=== PATIENT | female | born 1940 | race Caucasian/White ===

== ENCOUNTER 2025-02-21 13:38 | Outpatient (CLI) | payer MEDICARE, SELFPAY ==
--- NOTE | ~2025-02-21 | CT_ITS ---
Procedure: CT shoulder RT wo con Ordering provider: Ottoniel De Santiago MD History: . Preoperative Planning . Comparison: None. Technique: Thin slice axial CT of the No IV contrast was given. Sagittal and coronal reformatted imag es were also obtained and reviewed. Radiation reduction technique utilized. The dose-length product w as 1062.02 mGy-cm. Findings: BONES: No fracture or dislocation seen. Bone formation is seen inferior medial and posterior to the h umeral head. 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 SOFT TISSUES: Normal. IMPRESSION: No fracture or dislocation. Bone formation is seen around the humeral head medially, posteriorly and inferiorly. 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 Reviewed, dictated and finalized at location A. IMPRESSION: No fracture or dislocation. Bone formation is seen around the humeral head medially, posteriorly and inferi heavenly. 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
--- OUTSIDE RECORDS SUMMARY | 2025-02-21 13:48 | XMS_ITS | Clinical Summary ---
Author Organization [facility] [employer] [facility] [facility] Address [address] [place] [address] Care Team Providers Care Paint Spraying Machine Operator Helper Name Role Phone Unavailable Primary Care Provider Unavailabl e Source Comments [facility] [employer] [facility],non-owned Affiliates and Associated Physician Practices is amultiple site organization consisting of ambulatory clinics and hospital sitesin [place], [place], [place] and [place]. This disclosure is being madepursuant to the Care Everywhere program and may not contain all information available regarding this patient. Last updated 18.[employer] [facility] Allergies Active Allergy Reactions Criticality Noted Date Comments Food Rash Low 09/18/2015 Boysenberries--caused metal taste in mouth and lightheadedness Sulfa Drugs Nausea and/or Vomiting 09/18/2015 Medications * Be aware that medications may not be up to date on this document. Alwaysverify current medications with the patient. amoxicillin (AMOXIL) 875 MG tablet Take 875 mg by mouth every 12 hours Active metoprolol tartrate (LOPRESSOR) 100 MG tablet Take 100 mg by mouth once daily Active lisinopril-hydr ochlorothiazide (PRINZIDE; ZESTORETIC) 20-25 MG tablet Take 1 Tab by mouth once daily Active fenofibrate (LOFIBRA) 160 MG tablet Take 160 mg by mouth once daily Take with largest meal of the day. Active omeprazole (PRILOSEC) 20 MG capsule Take 20 mg by mouth daily before breakfast Active aspirin (ASPIRIN) 81 MG tablet Take 81 mg by mouth once daily Active loratadine (CLARITIN) 10 MG tablet Take 10 mg by mouth once daily as needed for Runny Nose or Allergies Active LORazepam (ATIVAN) 0.5 MG tablet Take 1 mg by mouth every 8 hours as needed for Anxiety (claustrophobi a) Active Social History Tobacco Use Types Packs/Day Years Used Date Smoking Tobacco: Never Tobacco Cessation:Counseling Given: No Alcohol Use Standard Drinks/Week Comments Yes 0 (1 standard drink = 0.6 oz pur e alcohol) rare Comments No Sex and Gender Information Value Date Recorded Sex Assigned at Not on file Legal Sex Female 10:30 AM RIP SAWYER Gender Identity Not on file Sexual Orientation Not on file Last Filed Vital Signs Vital Sign Reading Time Taken Comments Blood Pressure 150/86 09/19/2015 2:52 PM RIP SAWYER Pulse 66 09/19/2015 2:52 PM RIP SAWYER Temperature 37 C (98.6 F) 09/19/2015 2:22 PM RIP SAWYER Respiratory Rate 18 09/19/2015 2:52 PM RIP SAWYER Oxygen Saturation 100% 09/19/2015 2:53 PM RIP SAWYER Inhaled Oxygen Concentration - - Weight 90.7 kg (200 lb) 09/19/2015 6:09 AM RIP SAWYER Height 160 cm (5' 3 ) 09/18/2015 3:29 PM RIP SAWYER Body Mass Index 35.43 09/18/2015 3:29 PM RIP SAWYER Plan of Treatment Health Maintenance Due Date Last Done Comments BONE DENSITY TESTING 1942 MEDICARE AWV 12 MONTHS 1942 DTAP/TDAP/TD VACCINES (1 - Tdap) 1961 PNEUMOCOCCAL VACCINE 50+ (1 of 1 - PCV) 1992 ZOSTER VACCINE (1 of 2) 1992 Respiratory Syncytial Virus (RSV) Vaccine Pt: or over 60 yrs (1 - 1-dose 75+ series) 2017 COVID-19 VACCINE ( - 2023-2 5 season) 2024 DEPRESSION SCREENING 10/06/2024 INFLUENZA VACCINE (Season Ended) 2025 HEPATITIS B VACCINE Aged Out No longe r eligible based on patient's age to complete this topic HIB VACCINE Aged Out No longer eligi ble based on patient's age to complete this topic HPV VACCINE Aged Out No longer eligi ble based on patient's age to complete this topic MENINGOCOCCAL (Group B) VACC INE SHARED DECISION-MAKING Aged Out No longer eligibl e based on patient's age to complete this topic MENINGOCOCCAL GROUPS A/C/Y/W VACCINE Aged Out No longer eligible b ased on patient's age to complete this topic Medical Devices Implanted Type Area Char Puller Device Identifier Shelf Expiration Date Model / Serial / Lot Plate Vdr2 Proxm W L Narr Implanted:Qty: 1 on 09/19/2015 by Elias Evans MD at [facility] Right: Radius Acumed 70-0359 / / Peg Smooth Kenan 2.3 X 20mm Implanted:Qty: 1 on 09/19/2015 by Elias Evans MD at [facility] Right: Radius Acumed CO-S2320 / / Scrw Kenan Thrd 2.3 X 18mm Implanted:Qty: 1 on 09/19/2015 by Elias Evans MD at [facility] Right: Radius Acumed CO-T2318 / / Scrw Bone Dannie Ti Full Thrd 2.3mm X 20mm Implanted:Qty: 4 on 09/19/2015 by Elias Evans MD at [facility] Right: Radius Acumed CO-T2320 / / Scrw Non Kenan Hex 3.5mm X 12 Implanted:Qty: 2 on 09/19/2015 by Elias Evans MD at [facility] Right: Radius Acumed 30-0257 / / Scrw Non-Kenan Hexalobe 3.5mm X 10mm Implanted:Qty: 1 on 09/19/2015 by Elias Evans MD at [facility] Right: Radius Acumed [id number] / / Explanted Type Area Char Puller Device Identifier Shelf Expiration Date Model / Serial / Lot Drill Bit Explanted:Qty: 1 on 09/19/2015 at [facility] Right: Radius Acumed [id number] / / Gwire .054 X 6in Explanted:Qty: 2 on 09/19/2015 at [facility] Right: Radius Acumed [id number] / / Drill Bit Explanted:Qty: 1 on 09/19/2015 at [facility] Right: Galindo Billy [id number] / / Insurance MEDICARE [facility] MEDICARE [facility]
--- OUTSIDE RECORDS SUMMARY | 2025-02-21 13:48 | XMS_ITS | Encounter Summary ---
Author Organization [facility] Address [address] [place] [address] Phone Care Team Providers Care Head Transfer Clerk Name Role Phone Hernandez Marrero Primary Care Provider Sandra Pressley APRN, ORACLE DBA Primary Care P rovider Felix Kaiser MD Unavailable [phone] Kan Billings MD Unavailable Reason for Visit * Reason Comments Medication Refill Encounter Details Date Type Department Care Team (Late st Contact Info) Description 02/03/2024 Refill [facility] - Primary Care - [place] [address] [place] [address] Val Mustafa MD [address] [place] [address] Medication Refill Social History Tobacco Use Types Packs/Day Years Used Date Smoking Tobacco: Never Smokeless Tobacco: Never Alcohol Use Standard Drinks/Week Comments Not Currently 0 (1 standard drink = 0.6 oz pur e alcohol) occassionally glass of wine PHQ-2 Answer Date Recorded Total Score - Questions 1-9 0 11/06 Education Answer Date Recorded What is the highest level of school you have completed or the highest degree you have received? Some college, no degree 11/18/2020 Comments No Sex and Gender Information Value Date Recorded Sex Assigned at Not on file Legal Sex Female 8:49 PM CDT Gender Identity Female 08/28/2023 1:03 PM MECHANICAL RELIABILITY ENGINEER Sexual Orientation Straight 08/28/2023 1: 03 PM MECHANICAL RELIABILITY ENGINEER documented as of this encounter Miscellaneous Notes * Telephone Encounter - Elena Putnam RN - 02/04/2024 9:05 AM CDT Medication(s) refilled and signed per [facility] Chronic Medication Refill Standing Order for Pediatricand Adult Patients. Requested Prescriptions Pending Prescriptions Disp Refills metoprolol Succinate (TOPROL-XL) 100 MG TABLET SR 24 HR [Pharmacy Med Name: METOPROLOL ER [id number] TABS] 90 Tablet 1 Sig: TAKE 1 TABLET BY MOUTH DAILY Beta-Blockers Protocol Passed - 02/03/2024 9:28 PM Passed - BP on record in the past year Clinician-entered: BP Readings from Last 3 Encounters: 11/17/23 124/84 09/08/23 122/74 01/24/23 142/84 Patient-entered: No data recorded Passed - Visit with relevant provider in past 12 months or upcoming 90 days Recent Visits Date Type Provider Dept 11/17/23 Office Visit Hernandez Marrero PAC [facility] 09/08/23 Office Visit Val Mustafa MD [facility] Showing recent visits within past 365 days and meeting all other requirements Future Appointments No visits were found meeting these conditions. Showing future appointments within next 90 days and meeting all other requirements documented in this encounter Plan of Treatment Not on file documented as of this encounter Visit Diagnoses Diagnosis Essential hypertension Unspecified essential hypertension documented in this encounter Additional Health Concerns Assessment Noted Time PHQ-9 Depression Total Score: 0 11/17/19 10:49 AM MECHANICAL RELIABILITY ENGINEER documented as of this encounter Care Teams Head Transfer Clerk Relationship Specialty Start Date End Date Hernandez Marrero, PAC [address] [place] [id number] PCP - General Physician Surgery Tech 12/10/23 11/29/24 Sandra Pressley BREAKER UP, ORACLE DBA [address] [place] [address] PCP - General Advanced Practice Nurse 11/30/24 Felix Kaiser MD [address] [place] [address] Consulting Physician Nephrology 12/21/24 Kan Billings MD 2 [facility] [address] [place] [address] Consulting Physician Cardiovascular Disease - Cardiology 12/21/24 documented as of this encounter
--- OUTSIDE RECORDS SUMMARY | 2025-02-21 13:48 | XMS_ITS | Encounter Summary ---
Author Organization [facility] Address [address] [place] [address] Phone Care Team Providers Care Retread Mold Operator Name Role Phone Sandra Salas MD Primary Care Provider + [phone] Val Mustafa MD Primary Care Provider + [phone] Hernandez Marrero PAC Primary Care Provider + [phone] Sandra Pressley APRN, NEGATIVE RESTORER Primary Care P rovider Felix Kaiser MD Unavailable [phone] Kan Billings MD Unavailable [phone] Reason for Visit * Reason Comments Medication Refill Encounter Details Date Type Department Care Team (Late st Contact Info) Description 01/01/2022 Refill [facility] - Primary Care - [place] [address] [place] [address] Sandra Salas MD [address] [place] [address] Medication Refill Social History Tobacco Use Types Packs/Day Years Used Date Smoking Tobacco: Never Smokeless Tobacco: Never Alcohol Use Standard Drinks/Week Comments Yes 0 (1 standard drink = 0.6 oz pur e alcohol) occassionally glass of wine PHQ-2 Answer Date Recorded PHQ-2 Score 0 11/02/2019 Education Answer Date Recorded What is the highest level of school you have completed or the highest degree you have received? Some college, no degree 11/18/2020 Comments No Sex and Gender Information Value Date Recorded Sex Assigned at Not on file Legal Sex Female 8:49 PM CDT Gender Identity Female 08/28/2023 1:03 PM DISTRIBUTION ENGINEER Sexual Orientation Straight 08/28/2023 1: 03 PM DISTRIBUTION ENGINEER documented as of this encounter Miscellaneous Notes * Telephone Encounter - Noemí Roper RN - 01/01/2022 11:11 AM CDT Medication failed the protocol, provider to review and approve the medication order if appropriate. Requested Prescriptions Pending Prescriptions Disp Refills LORazepam (ATIVAN) 0.5 MG Tablet [Pharmacy Med Name: LORAZEPAM 0.5MG TABLETS] 30 Tablet Sig: TAKE 1 TABLET BY MOUTH EVERY NIGHT NEEDED FOR SLEEP Not Delegated - Benzodiazepines Protocol Failed - 01/01/2022 11:03 AM Failed - This refill cannot be delegated Passed - Visit with relevant provider in past 12 months or upcoming 90 days Recent Visits Date Type Provider Dept 09/12/21 Office Visit Sandra Pressley APRN, VINICIO [facility] 06/04/21 Office Visit Sandra Salas MD [facility] Showing recent visits within past 365 days and meeting all other requirements Future Appointments Date Type Provider Dept 01/09/22 Appointment David, [facility] [facility] 01/17/22 Appointment Sandra Salas MD [facility] [facility] Showing future appointments within next 90 days and meeting all other requirements documented in this encounter Plan of Treatment Not on file documented as of this encounter Visit Diagnoses Diagnosis Anxiety Anxiety state, unspecified documented in this encounter Additional Health Concerns Infection Onset Date Last Indicated Resolved Time COVID - 19 11/17/2023 11/17/2023 11/17/2023 11:3 3 AM DISTRIBUTION ENGINEER COVID - 19 11/17/2023 11/17/2023 11/17/2023 11:3 8 AM DISTRIBUTION ENGINEER COVID - 19 11/17/2023 11/17/2023 11/17/2023 11:5 1 AM DISTRIBUTION ENGINEER COVID - 19 Confirmed 11/17/2023 11/17/2023 024 12:16 AM DISTRIBUTION ENGINEER Assessment Noted Time PHQ-9 Depression Total Score: 0 11/02/19 20 1:00 PM DISTRIBUTION ENGINEER documented as of this encounter Care Teams Retread Mold Operator Relationship Specialty Start Date End Date Sandra Salas MD PCP - General Family Medicine 09/16/15 01/19/23 Val Mustafa MD [address] [place] [address] PCP - General Family Medicine 01/24/23 12/09/23 Hernandez Marrero, PAC [address] [place] [address] PCP - General Physician Rehabilitation Program Manager 12/10/23 11/29/24 Sandra Pressley, DOLPHIN RESEARCHER, NEGATIVE RESTORER [address] [place] [address] PCP - General Advanced Practice Nurse 11/30/24 Felix Kaiser MD [address] [place] [address] Consulting Physician Nephrology 12/21/24 ManuelitoKan martino MD 2 [facility] [address] [place] [address] Consulting Physician Cardiovascular Disease - Cardiology 12/21/24 documented as of this encounter
--- OUTSIDE RECORDS SUMMARY | 2025-02-21 13:48 | XMS_ITS | Encounter Summary ---
Author Organization [facility] Address [address] [place] [address] Phone Care Team Providers Care Surfacer Name Role Phone Sandra Salas MD Primary Care Provider + [phone] Val Mustafa MD Primary Care Provider + [phone] Hernandez Marrero PAC Primary Care Provider + [phone] Sandra Pressley APRN, WIND OPERATIONS SUPERVISOR Primary Care P rovider Felix Kaiser MD Unavailable [phone] Kan Billings MD Unavailable [phone] Reason for Visit * Reason Comments Medication Refill Encounter Details Date Type Department Care Team (Late st Contact Info) Description 05/13/2021 Refill [facility] - Primary Care - [place] [address] [place] [address] Sandra Salas MD [address] [place] [address] Medication Refill Social History Tobacco [...] CDT Gender Identity Female 08/28/2023 1:03 PM PLANT MAINTENANCE WORKER Sexual Orientation Straight 08/28/2023 1: 03 PM PLANT MAINTENANCE WORKER documented as of this encounter Plan of Treatment Not on file documented as of this encounter Visit Diagnoses Diagnosis Essential hypertension Unspecified essential hypertension documented in this encounter Additional Health Concerns Infection Onset Date Last Indicated Resolved Time COVID - 19 11/17/2023 11/17/2023 11/17/2023 11:3 3 AM PLANT MAINTENANCE WORKER COVID - 19 11/17/2023 11/17/2023 11/17/2023 11:3 8 AM PLANT MAINTENANCE WORKER COVID - 19 11/17/2023 11/17/2023 11/17/2023 11:5 1 AM PLANT MAINTENANCE WORKER COVID - 19 Confirmed 11/17/2023 11/17/2023 03 024 12:16 AM PLANT MAINTENANCE WORKER Assessment Noted Time PHQ-9 Depression Total Score: 0 11/02/19 20 1:00 PM PLANT MAINTENANCE WORKER documented as of this encounter Care Teams Surfacer Relationship Specialty Start Date End Date Sandra Salas MD PCP - General Family Medicine 09/16/15 01/19/23 Val Mustafa MD [address] [place] [address] PCP - General Family Medicine 01/24/23 12/09/23 Hernandez Marrero PAC [address] [place] [address] PCP - General Physician Cna 12/10/23 11/29/24 Sandra Pressley APRN, WIND OPERATIONS SUPERVISOR [address] [place] [address] PCP - General Advanced Practice Nurse 11/30/24 Felix Kaiser MD [address] [facility] [address] [place] [address] Consulting Physician Nephrology 12/21/24 Kan Billings MD 2 [facility] [address] [place] [address] Consulting Physician Cardiovascular Disease - Cardiology 12/21/24 documented as of this encounter
--- OUTSIDE RECORDS SUMMARY | 2025-02-21 13:48 | XMS_ITS | Encounter Summary ---
Author Organization [facility] Address [address] [place] [address] Phone Care Team Providers Care Guest Request Runner Name Role Phone Sandra Salas MD Primary Care Provider + [phone] Val Mustafa MD Primary Care Provider + [phone] Hernandez Marrero PAC Primary Care Provider + [phone] Sandra Pressley APRN, MACHINE PACKAGING TECHNICIAN Primary Care P rovider Felix Kaiser MD Unavailable [phone] Kan Billings MD Unavailable [phone] Reason for Visit * Reason Comments Medication Refill Encounter Details Date Type Department Care Team (Late st Contact Info) Description 09/13/2021 Refill [facility] - Primary Care - [place] [address] [place] [address] Sandra Salas MD [address] [place] [address] Medication Refill Social History Tobacco [...] CDT Gender Identity Female 08/28/2023 1:03 PM WEB COORDINATOR Sexual Orientation Straight 08/28/2023 1: 03 PM WEB COORDINATOR COVID-19 Exposure Response Date Recorded In the last month, have you been in contact with someone who was confirmed or suspected to have Coronavirus / COVID-19? No / Unsure 09/12/2021 11:02 AM WEB COORDINATOR documented as of this encounter Miscellaneous Notes * Telephone Encounter - Elena Putnam RN - 09/13/2021 11:37 AM CST lisinopril-hydroCHLOROthiazide (PRINZIDE, ZESTORETIC) 20-25 MG Tablet 90 Tablet 1 06/14/2021 COORDINATOR documented in this encounter Plan of Treatment Not on file documented as of this encounter Visit Diagnoses Not on filedocumented in this encounter Additional Health Concerns Infection Onset Date Last Indicated Resolved Time COVID - 19 11/17/2023 11/17/2023 11/17/2023 11:3 3 AM WEB COORDINATOR COVID - 19 11/17/2023 11/17/2023 11/17/2023 11:3 8 AM WEB COORDINATOR COVID - 19 11/17/2023 11/17/2023 11/17/2023 11:5 1 AM WEB COORDINATOR COVID - 19 Confirmed 11/17/2023 11/17/2023 03/2 024 12:16 AM WEB COORDINATOR Assessment Noted Time PHQ-9 Depression Total Score: 0 11/02/19 20 1:00 PM WEB COORDINATOR documented as of this encounter Care Teams Guest Request Runner Relationship Specialty Start Date End Date Sandra Salas MD PCP - General Family Medicine 09/16/15 01/19/23 Val Mustafa MD [address] [place] [address] PCP - General Family Medicine 01/24/23 12/09/23 Hernandez Marrero, PAC [address] [place] [address] PCP - General Physician Earth Observations Chief Scientist 12/10/23 11/29/24 Sandra Pressley APRN, MACHINE PACKAGING TECHNICIAN [address] [place] [address] PCP - General Advanced Practice Nurse 11/30/24 Felix Kaiser MD [address] [facility] [address] [place] [address] Consulting Physician Nephrology 12/21/24 Kan Billings MD [address] [place] [address] [place] [address] Consulting Physician Cardiovascular Disease - Cardiology 12/21/24 documented as of this encounter
--- OUTSIDE RECORDS SUMMARY | 2025-02-21 13:48 | XMS_ITS | Clinical Summary ---
Author Organization [facility] Address [address] [place] [id number] Care Team Providers Care Menu Planner Name Role Phone CamiloaldenBlaze brooks NP Primary Care Provide r Allergies Active Allergy Reactions Criticality Noted Date Comments Atorvastatin Prochlorperazine Other (See comments) Medium Reaction: Dizziness, Sulfa (Sulfonamide Antibiotics) Nausea only,Vomiting,Nause a And Vomiting 09/16/2015 Reaction: Nausea, Vomiting, Medications albuterol HFA (PROVENTIL HFA,VENTOLIN HFA) 90 mcg/actuation inhaler inhale 2 puff by INHALATION route 4 - 6 hours as needed 0 0 Active aspirin (ASPIRIN LOW-STRENGTH) 81 mg chewable tablet Take one by mouth one time per day 0 0 9 Active LORazepam (ATIVAN) 1 mg tablet Take one by mouth one time per day as needed 0 0 9 Active ezetimibe (ZETIA) 10 mg tablet TK 1 T PO D 3 7 Active cholecalciferol (VITAMIN D-3) 1,000 unit capsule Take 5 capsules (5,000 Units total) by mouth daily Active loratadine 10 mg capsule Take 10 mg by mouth daily Active lisinopril-hydr oCHLOROthiazide (ZESTORETIC) 20-25 mg per tablet Take 1 tablet by mouth daily In the morning Active metoprolol XL (TOPROL-XL) 100 mg 24 hr tablet Take 1 tablet (100 mg total) by mouth daily 2 Active pravastatin (PRAVACHOL) 20 mg tablet Take 1 tablet (20 mg total) by mouth daily 2 Active lisinopriL (PRINIVIL,ZESTR IL) 20 mg tablet TAKE 1 TABLET BY MOUTH DAILY 30 tablet 11 4 Active Active Problems Problem Noted Date Diagnosed Date Examination following surgery 09/09/2017 History of arthroplasty of right hip 09/09/2017 Tendinitis of both rotator cuffs 09/09/2017 Encounters Date Type Department Care Team Description 12/02/2024 10:15 AM TRAVELING STOREKEEPER Lab [address] [phone] from Last 3 Months Immunizations Immunization Administration Dates Next Due Influenza, Trivalent, IM (MDV) 07/11/2014,2007 Pneumococcal Polysaccharide PPV23 10/06/2006 Surgical History Surgery Date Site/Laterality Comments OTHER SURGICAL HISTORY 10/06/2006 - 10/05/2007 Transanal excision Rectal cancer 05/12 TOTAL ABDOMINAL HYSTERECTOMY W/ BILATERAL SALPINGOOPHORECTOMY Hysterectomy, total abdominal, BSO CHOLECYSTECTOMY Cholecystectomy KNEE ARTHROPLASTY Knee replacement OTHER SURGICAL HISTORY Endometriosis: JACOB/BSO OTHER SURGICAL HISTORY Rectal mass-cancer: Resected CHOLECYSTECTOMY 10/06/1977 - 10/05/1978 Cholecystectomy OTHER SURGICAL HISTORY DJD-carmita knee: Bilateral knee replacement OTHER SURGICAL HISTORY CP-cardiac cath-normal: Sees cardiology q 6mos HIP ARTHROPLASTY Right Hip arthroplasty Medical History Medical History Date Comments Hypertension Hypertension Arthritis Arthritis Endometritis 1980 Endometriosis Hx Other Medical Cyst off ovary Hx Other Medical 2006 Rectal mass-can cer Hx Other Medical DJD-carmita knee Hx Other Medical Bursitis Hx Other Medical CP-cardiac cath -normal Asthma Asthma Malignant neoplasm of rectum (HCC) Cancer, rectal Family History Medical History Relation Name Comments Endometrial cancer Daughter 1 Other Daughter 1 abnormal pap; Diverticulosis Grandchild Diverticulosi s; Breast cancer Mother Ovarian cancer Neg Hx Thyroid cancer Neg Hx Relation Name Status Comments Daughter 1 Daughter 2 Grandchild Mother Social History Tobacco Use Types Packs/Day Years Used Date Smoking Tobacco: Never Smokeless Tobacco: Never Tobacco Cessation:Counseling Given: Not Answered Alcohol Use Standard Drinks/Week Comments No 0 (1 standard drink = 0.6 oz pur e alcohol) Comments No Sex and Gender Information Value Date Recorded Sex Assigned at Not on file Legal Sex Female 12:26 AM TRAVELING STOREKEEPER Gender Identity Not on file Sexual Orientation Not on file Obstetrics History Para Term AB IAB SAB Ectopic Multiple Livin g Live Births 1 1 1 Date Outcome GA Total Labor Labor/2nd/3rd Weight Sex Type Anes PTL Niya A1 A5 Name Clin Term Last Filed Vital Signs Vital Sign Reading Time Taken Comments Blood Pressure 137/84 05/27/2024 8:36 AM CDT Pulse 69 05/27/2024 8:36 AM CDT Temperature 36.4 C (97.6 F) 05/10/2021 8:08 AM CDT Respiratory Rate 18 05/22/2023 9:01 AM CDT Oxygen Saturation - - Inhaled Oxygen Concentration - - Weight 98.9 kg (218 lb) 05/27/2024 8:36 AM CDT Height 160 cm (5' 3 ) 11/11/2024 3:23 PM TRAVELING STOREKEEPER Body Mass Index 38.62 05/27/2024 8:36 AM CDT Plan of Treatment Health Maintenance Due Date Last Done Comments Depression Screening 1942 Fall Risk Assessment 1942 Hepatitis B Screening 1960 Well Visit 65+ 2007 Osteoporosis Screening-Bone Density Scan 12/13/2022 12/13/2020, 12/13/2020, 12/13/2020 Covid-19 Vaccine (4 - 2023-2 5 season) 2024 10/05/2021, 12/14/2020, 11/16/2020 DTaP/Tdap/Td Vaccine (3 - Td or Tdap) 09/16/2025 09/16/2015, 10/06/2012 Pneumococcal vaccine 65+ Completed 020, 08/20/2016, 08/06/2012, Additional history exists Zoster Vaccine Completed 02/27/2024, 10/24/2023 Influenza Vaccine Completed 10/08/2024, , 07/24/2021, Additional history exists Procedures Procedure Name Priority Date/Time Associated Diagnosis Comments EGFR Routine 12/02/2024 10:36 AM TRAVELING STOREKEEPER DIFFERENTIAL AUTO Routine 12/02/2024 10: 36 AM TRAVELING STOREKEEPER RENAL FUNCTION PANEL Routine 12/02/2024 10:36 AM TRAVELING STOREKEEPER PTH Routine 12/02/2024 10:36 AM TRAVELING STOREKEEPER CBC WITH AUTO DIFFERENTIAL Routine 12/02/2024 10:36 AM TRAVELING STOREKEEPER PROTEIN / CREATININE RATIO, URINE, RANDOM Routine 12/02/2024 10:35 AM TRAVELING STOREKEEPER DEXA AXIAL SKELETON BONE DENSITY 1 OR MORE SITES Schedule Routine, Read Routine (OP Routine) 12/13/2020 10:06 AM TRAVELING STOREKEEPER Encounter for screening for osteoporosis from Last 3 Months or Most Recently Relevant to Health Maintenance Results * (ABNORMAL) eGFR (12/02/2024 10:36 AM TRAVELING STOREKEEPER) eGFR 45(L) >=60 mL/min/1. 73 m2 Comment: Interpretive Data Reference Interval Normal >/= 90 mL/min/1.73m2 Mildly decreased* 60 - 89 mL/min/1.73m2 Mildly to moderately decreased 45 - 59 mL/min/1.73m2 Moderately to severely decreased 30 - 44 mL/min/1.73m2 Severely decreased 15 - 29 mL/min/1.73m2 Kidney Failure < 15 mL/min/1.73m2 *Relative to young adult level Estimated glomerular filtration rate is determined by the 2020 CKD-EPI equation recommended by the National Kidney Foundation (A Unifying Approach to GFR Estimation: Recommendations of the NKF-ASK Task Force on Reassessing the Inclusion of Race in Diagnosing Kidney Disease, JASN 2020). The CKD-EPI equation should not be used for patients with unstable renal function and has not been validated in children and those over 70. Current interpretive data was last reviewed 2021. Blood 12/02/2024 10:3 6 AM TRAVELING STOREKEEPER 12/02/2024 11:29 AM TRAVELING STOREKEEPER us Felix Kaiser MD LAB BLOOD ORDERABLES Final R esult [facility] [place]) [address] [facility] [place] [address] 46 * Differential, auto (12/02/2024 10:36 AM TRAVELING STOREKEEPER) Neutrophil abs 2.3 1.5 - 6.5 K/cumm Imm gran abs 0.0 0.0 - 0.1 K/cumm [facility] ([place]) Lymphocyte abs 1.1 0.8 - 3.3 K/cumm [facility] ([place]) Monocyte abs 0.5 0.2 - 0.8 K/cumm [facility] ([place]) Eosinophil abs 0.1 0.0 - 0.5 K/cumm [facility] ([place]) Basophil abs 0.0 0.0 - 0.1 K/cumm [facility] ([place]) Neutrophil pct 58.7 % [facility] ([place]) Comment: Interpretive Data Percent cell count reference ranges are not reported, since discordance with absolute values may lead to misinterpretation of CBC data. Current Interpretive Data was last revised on 2018. Imm gran pct 0.3 % [facility] ([place]) Comment: Interpretive Data Percent cell count reference ranges are not reported, since discordance with absolute values may lead to misinterpretation of CBC data. Current Interpretive Data was last revised on 2018. Lymphocyte pct 26.6 % [facility] ([place]) Comment: Interpretive Data Percent cell count reference ranges are not reported, since discordance with absolute values may lead to misinterpretation of CBC data. Current Interpretive Data was last revised on 2018. Monocyte pct 11.6 % [facility] ([place]) Comment: Interpretive Data Percent cell count reference ranges are not reported, since discordance with absolute values may lead to misinterpretation of CBC data. Current Interpretive Data was last revised on 2018. Eosinophil pct 2.3 % [facility] ([place]) Comment: Interpretive Data Percent cell count reference ranges are not reported, since discordance with absolute values may lead to misinterpretation of CBC data. Current Interpretive Data was last revised on 2018. Basophil pct 0.5 % [facility] ([place]) Comment: Interpretive Data Percent cell count reference ranges are not reported, since discordance with absolute values may lead to misinterpretation of CBC data. Current Interpretive Data was last revised on 2018. Blood 12/02/2024 10:3 6 AM TRAVELING STOREKEEPER 12/02/2024 11:29 AM TRAVELING STOREKEEPER Felix Kaiser MD LAB BLOOD ORDERABLES Final R esult Performing Organization Address City/State/[facility] Co de Phone Number [facility] ([place]) 1 [facility] [place] [address] * (ABNORMAL) CBC with auto differential (12/02/2024 10:36 AM TRAVELING STOREKEEPER) WBC 4.0 3.8 - 9.9 K/cumm Hgb 12.8 11.9 - 15.5 g/dL [facility] ([place]) Hct 39.2 35.6 - 45.5 % [facility] ([place]) Plt 149(L) 150 - 400 K/cumm [facility] ([place]) MPV 10.8 9.1 - 12.3 fL [facility] ([place]) RBC 4.21 3.90 - 5.20 M/cumm [facility] ([place]) MCV 93.1 81.3 - 96.4 fL [facility] ([place]) MCH 30.4 27.1 - 33.3 pg [facility] ([place]) MCHC 32.7 32.3 - 35.7 g/dL [facility] ([place]) RDW CV 13.3 11.1 - 14.9 % [facility] ([place]) RDW SD 45.4 35.7 - 48.1 fL [facility] ([place]) NRBC abs 0.00 0.00 - 0.01 K/cumm [facility] ([place]) Blood 12/02/2024 10:3 6 AM TRAVELING STOREKEEPER 12/02/2024 11:29 AM TRAVELING STOREKEEPER Felix Kaiser MD LAB BLOOD ORDERABLES Final R esult [facility] ([place]) 1 [facility] [place] [address] * PTH (12/02/2024 10:36 AM TRAVELING STOREKEEPER) PTH 27 15 - 65 pg/mL Blood 12/02/2024 10:3 6 AM TRAVELING STOREKEEPER 12/02/2024 11:29 AM TRAVELING STOREKEEPER us Felix Kaiser MD LAB BLOOD ORDERABLES Final R esult [facility] ([place]) [address] [facility] Department [place] [address] * (ABNORMAL) Renal function panel (12/02/2024 10:36 AM TRAVELING STOREKEEPER) Sodium 140 135 - 145 mmol/L Potassium, pl 4.2 3.3 - 4.9 mmol/L [facility]) Chloride 102 97 - 110 mmol/L [facility] ([place]) CO2 28 22 - 32 mmol/L [facility] ([place]) Anion gap 10 2 - 15 mmol/L [facility] ([place]) BUN 32(H) 6 - 25 mg/dL [facility] ([place]) Creatinine 1.20(H) 0.60 - 1.10 mg/dL [facility] ([place]) Glucose 96 70 - 199 mg/dL [facility] ([place]) Comment: Interpretive Data Fasting glucose >/= 126 mg/dl is diagnostic for diabetes. Fasting is defined as no caloric intake for at least 8 hours. Fasting glucose between 100 mg/dl to 125 mg/dl is diagnostic of prediabetes. In a patient with classic symptoms of hyperglycemia or hyperglycemic crisis, a random glucose >/= 200 mg/dl is diagnostic for diabetes. In the absence of unequivocal hyperglycemia, results should be confirmed by repeat testing. The classification and Diagnosis of Diabetes Diabetes Care 2021; 46: S19-S40. Current interpretive data was last revised 2022. Calcium 9.6 8.5 - 10.3 mg/dL [facility] ([place]) Phosphorus, pl 3.9 2.3 - 4.5 mg/dL [facility] ([place]) Albumin 4.0 3.5 - 5.0 g/dL [facility] ([place]) Blood 12/02/2024 10:3 6 AM TRAVELING STOREKEEPER 12/02/2024 11:29 AM TRAVELING STOREKEEPER Felix Kaiser MD LAB BLOOD ORDERABLES Final R esult Performing Organization Address [facility] de Phone Number [facility] [place] 1 [facility] [place] [address] * Protein / creatinine ratio, urine, random (12/02/2024 10:35 AM TRAVELING STOREKEEPER) Protein, ur, quant 6.6 mg/dL Comment: Interpretive Data No reference range established. Current interpretive data was last revised 2019. Creatinine Ur 67.5 mg/dL [facility] ([place]) Comment: Interpretive Data No reference range established. Current interpretive data was last revised 2019. Protein/creatinin e ratio 97.8 0.0 - 180.0 mg/g CR [facility] ([place]) Urine 12/02/2024 10:3 5 AM TRAVELING STOREKEEPER 12/02/2024 12:02 PM TRAVELING STOREKEEPER Felix Kaiser MD LAB URINE ORDERABLES Final R [facility] Performing Organization Address [facility] de Phone Number [facility] ([place]) 1 [facility] [place] [address] * Dexa Axial Skeleton Bone Density 1 or 2 Site (12/13/2020 10:06 AM TRAVELING STOREKEEPER) Anatomical Region Laterality Modality Body N/A Other 12/13/2020 10:1 2 AM TRAVELING STOREKEEPER Impressions 12/13/2020 10:18 AM TRAVELING STOREKEEPER According to the World Health Organization criteria, based upon the left forearm (mid 1/3) bone mineral density (T score value of -1.3), the patient has low bone mass. General Recommendations: 1. Consider an evaluation for secondary causes of osteoporosis in patients with low bone density. 2. All patients should be counseled on adequate intake of calcium (1200 mg/day), vitamin D (600-800 IU daily) and exercise. 3. The National Osteoporosis Foundation (NOF) guidelines recommend initiating pharmacological therapy, in addition to calcium, vitamin D and exercise, to reduce fracture risk when: a. T-score less than or equal to -2.5 after secondary causes excluded. b. T-score between -1.0 and -2.5 with secondary causes associated with high risk of fracture. c. 10-year probability of hip fracture more than or equal to 3% (based on FRAX score). d. 10-year probability of major osteoporosis related fracture more than or equal to 20% (based on FRAX score). Followup: People with diagnosed cases of osteoporosis or at high risk for fracture should have regular bone mineral density tests. For patients eligible for Medicare, routine testing is allowed once every 2 years. The testing frequency can be increased to one year for patients who have rapidly progressive disease or those who are receiving long-term steroid therapy. Electronically signed by: Akash Leyva M.D. Narrative 12/13/2020 10:18 AM TRAVELING STOREKEEPER COMPLETION DATE: 12/13/2020 9:30 AM ORDERING HEALTHCARE PROVIDER: BLAZE FLORES STUDY DESCRIPTION: DEXA AXIAL SKELETON BONE DENSITY 1 OR MORE SITES CLINICAL INDICATIONS: Screening for osteoporosis. Parietal hip fracture, history of rheumatoid arthritis, no regular weightbearing exercise, drinks caffeinated beverages. Reported use of vitamin D. COMPARISON: None available TECHNIQUE: Dual x-ray absorptiometry (DEXA) was performed using Storone system. GENERAL GUIDELINES: According to WHO guidelines, a T score of -1.0 or greater is normal, between -1.0 to -2.4 is osteopenia, and -2.5 or less is osteoporosis. Z score (instead of T score) is preferred for pediatric, young adults, premenopausal women and men under age of 50 years. In these patients, a Z score greater than or equal to -2.0 is considered to be in the expected range. FINDINGS: LUMBAR SPINE (L1-L4): T-score 3.1 Total lumbar spine BMD is suspected to be spuriously elevated due to facet hypertrophy/spondylosis. LEFT FOREARM (MID 1/3): T score -1.3 Neither hip was assessed due to bilateral hip arthroplasty. A FRAX score based upon a DXA study is not reported unless all of the following criteria are met. The patient: a. Is an untreated postmenopausal woman or a man age 50 or older. b. Has low bone mass (T-score between -1.0 and -2.5). c. Has no prior hip or vertebral fracture (clinical or morphometric). d. Has an evaluable hip for DXA study. Procedure Note Akash Leyva MD - 12/13/2020 COMPLETION DATE: 12/13/2020 9:30 AM ORDERING HEALTHCARE PROVIDER: BLAZE FLORES STUDY DESCRIPTION: DEXA AXIAL SKELETON BONE DENSITY 1 OR MORE SITES CLINICAL INDICATIONS: Screening for osteoporosis. Parietal hip fracture, history of rheumatoid arthritis, no regular weightbearing exercise, drinks caffeinated beverages. Reported use of vitamin D. COMPARISON: None available TECHNIQUE: Dual x-ray absorptiometry (DEXA) was performed using Storone system. GENERAL GUIDELINES: According to WHO guidelines, a T score of -1.0 or greater is normal, between -1.0 to -2.4 is osteopenia, and -2.5 or less is osteoporosis. Z score (instead of T score) is preferred for pediatric, young adults, premenopausal women and men under age of 50 years. In these patients, a Z score greater than or equal to -2.0 is considered to be in the expected range. FINDINGS: LUMBAR SPINE (L1-L4): T-score 3.1 Total lumbar spine BMD is suspected to be spuriously elevated due to facet hypertrophy/spondylosis. LEFT FOREARM (MID 1/3): T score -1.3 Neither hip was assessed due to bilateral hip arthroplasty. A FRAX score based upon a DXA study is not reported unless all of the following criteria are met. The patient: a. Is an untreated postmenopausal woman or a man age 50 or older. b. Has low bone mass (T-score between -1.0 and -2.5). c. Has no prior hip or vertebral fracture (clinical or morphometric). d. Has an evaluable hip for DXA study. IMPRESSION: According to the World Health Organization criteria, based upon the left forearm (mid 1/3) bone mineral density (T score value of -1.3), the patient has low bone mass. General Recommendations: 1. Consider an evaluation for secondary causes of osteoporosis in patients with low bone density. 2. All patients should be counseled on adequate intake of calcium (1200 mg/day), vitamin D (600-800 IU daily) and exercise. 3. The National Osteoporosis Foundation (NOF) guidelines recommend initiating pharmacological therapy, in addition to calcium, vitamin D and exercise, to reduce fracture risk when: a. T-score less than or equal to -2.5 after secondary causes excluded. b. T-score between -1.0 and -2.5 with secondary causes associated with high risk of fracture. c. 10-year probability of hip fracture more than or equal to 3% (based on FRAX score). d. 10-year probability of major osteoporosis related fracture more than or equal to 20% (based on FRAX score). Followup: People with diagnosed cases of osteoporosis or at high risk for fracture should have regular bone mineral density tests. For patients eligible for Medicare, routine testing is allowed once every 2 years. The testing frequency can be increased to one year for patients who have rapidly progressive disease or those who are receiving long-term steroid therapy. Electronically signed by: Akash Leyva M.D. Blaze Flores NP IMG DXA PROCEDURES Fi nal Result from Last 3 Months or Most Recently Relevant to Health Maintenance [place] [address] MEDICARE ADVANTAGE [employer] MEDICARE ADVANTAGE Care Teams Menu Planner Relationship Specialty Start Date End Date Blaze Flores NP [address] [place] [address] PCP - General Emergency Medicine 11/03/24
--- OUTSIDE RECORDS SUMMARY | 2025-02-21 13:48 | XMS_ITS | Encounter Summary ---
Author Organization [facility] Address [address] [place] [address] Phone Care Team Providers Care Hedis Analyst Name Role Phone Sandra Salas MD Primary Care Provider + [phone] Val Mustafa MD Primary Care Provider + [phone] Hernandez Marrero PAC Primary Care Provider + [phone] Sandra Pressley APRN, TOY MECHANIC Primary Care P rovider Felix Kaiser MD Unavailable [phone] Kan Billings MD Unavailable [phone] Reason for Visit * Reason Comments Medication Refill Encounter Details Date Type Department Care Team (Late st Contact Info) Description 03/12/2022 Refill [facility] - Primary Care - [place] [address] [place] [address] Sandra Salas MD [address] [place] [address] Medication Refill Social History Tobacco [...] CDT Gender Identity Female 08/28/2023 1:03 PM REWORK MACHINE OPERATOR Sexual Orientation Straight 08/28/2023 1: 03 PM REWORK MACHINE OPERATOR documented as of this encounter Miscellaneous Notes * Telephone Encounter - Noemí Roper RN - 03/12/2022 8:45 AM CDT Refill request too soon. documented in this encounter Plan of Treatment Not on file documented as of this encounter Visit Diagnoses Diagnosis Hyperlipidemia, unspecified hyperlipidemia type documented in this encounter Additional Health Concerns Infection Onset Date Last Indicated Resolved Time COVID - 19 11/17/2023 11/17/2023 11/17/2023 11:3 3 AM REWORK MACHINE OPERATOR COVID - 19 11/17/2023 11/17/2023 11/17/2023 11:3 8 AM REWORK MACHINE OPERATOR COVID - 19 11/17/2023 11/17/2023 11/17/2023 11:5 1 AM REWORK MACHINE OPERATOR COVID - 19 Confirmed 11/17/2023 11/17/2023 03//2 024 12:16 AM REWORK MACHINE OPERATOR Assessment Noted Time PHQ-9 Depression Total Score: 0 11/02/19 20 1:00 PM REWORK MACHINE OPERATOR documented as of this encounter Care Teams Hedis Analyst Relationship Specialty Start Date End Date Sandra Salas MD PCP - General Family Medicine 09/16/15 01/19/23 Val Mustafa MD [address] [place] [address] PCP - General Family Medicine 01/24/23 12/09/23 Hernandez Marrero, PAC [address] [place] [address] PCP - General Physician Circulation Assistant 12/10/23 11/29/24 Sandra Pressley, PHARMACEUTICAL PHYSICIAN, TOY MECHANIC [address] [place] [address] PCP - General Advanced Practice Nurse 11/30/24 Felix Kaiser MD [address] [facility] [address] [place] [address] Consulting Physician Nephrology 12/21/24 Kan Billings MD [address] [facility] [place] [place] [address] Consulting Physician Cardiovascular Disease - Cardiology 12/21/24 documented as of this encounter
--- OUTSIDE RECORDS SUMMARY | 2025-02-21 13:48 | XMS_ITS | Encounter Summary ---
Author Organization [facility] Address [address] [place] [address] Phone Care Team Providers Care Counter Help Name Role Phone Sandra Salas MD Primary Care Provider + [phone] Val Mustafa MD Primary Care Provider + [phone] Hernandez Marrero PAC Primary Care Provider + [phone] Sandra Pressley APRN, IT SECURITY PROJECT MANAGER Primary Care P rovider Felix Kaiser MD Unavailable [phone] Kan Billings MD Unavailable [phone] Reason for Visit * Reason Comments Medication Refill Encounter Details Date Type Department Care Team (Late st Contact Info) Description 11/13/2021 Refill [facility] - Primary Care - [place] [address] [place] [address] Sandra Salas MD [address] [place] [address] Medication Refill Social History Tobacco [...] CDT Gender Identity Female 08/28/2023 1:03 PM COMMERCIAL KITCHEN SERVICE TECHNICIAN Sexual Orientation Straight 08/28/2023 1: 03 PM COMMERCIAL KITCHEN SERVICE TECHNICIAN documented as of this encounter Miscellaneous Notes * Telephone Encounter - Elena Putnam RN - 11/13/2021 3:32 PM CST Per nursing clinical judgement, provider to review and approve the medication(s) order(s) if appropriate. Requested Prescriptions Pending Prescriptions Disp Refills lisinopril-hydroCHLOROthiazide (PRINZIDE, ZESTORETIC) 20-25 MG Tablet [Pharmacy Med Name: LISINOPRIL-HCTZ 20/25MG TABLETS] 90 Tablet 1 Sig: TAKE 1 TABLET BY MOUTH DAILY Ramsey Inhibitors and Diuretics Combo Protocol Passed - 11/13/2021 3:27 PM Passed - Serum potassium on record in past 12 months POTASSIUM Date Value Ref Range Status 05/28/2021 4.1 3.5 - 5.1 mmol/L Final Passed - Serum sodium on record in past 12 months SODIUM Date Value Ref Range Status 05/28/2021 141 136 - 144 mmol/L Final Passed - Blood pressure on record in past 12 months Clinician-entered: BP Readings from Last 3 Encounters: 09/12/21 126/88 06/04/21 124/72 11/28/20 124/84 Patient-entered: No data recorded Passed - Visit with relevant provider in past 12 months or upcoming 90 days Recent Visits Date Type Provider Dept 09/12/21 Office Visit Sandra Pressley, STRETCH PRESS OPERATOR, IT SECURITY PROJECT MANAGER [facility] 06/04/21 Office Visit Sandra Salas MD [facility] 11/28/20 Office Visit Sandra Pressley APRN, IT SECURITY PROJECT MANAGER [facility] Showing recent visits within past 365 days and meeting all other requirements Future Appointments Date Type Provider Dept 12/04/21 Appointment David [facility] 12/11/21 Appointment Sandra Salas MD [facility] Showing future appointments within next 90 days and meeting all other requirements Passed - GFR on record in past 12 months GFR, EST. NONAFRICAN Date Value Ref Range Status 05/28/2021 40 (L) >=60 Final ERCIAL KITCHEN SERVICE TECHNICIAN documented in this encounter Plan of Treatment Not on file documented as of this encounter Visit Diagnoses Not on filedocumented in this encounter Additional Health Concerns Infection Onset Date Last Indicated Resolved Time COVID - 19 11/17/2023 11/17/2023 11/17/2023 11:3 3 AM COMMERCIAL KITCHEN SERVICE TECHNICIAN COVID - 19 11/17/2023 11/17/2023 11/17/2023 11:3 8 AM COMMERCIAL KITCHEN SERVICE TECHNICIAN COVID - 19 11/17/2023 11/17/2023 11/17/2023 11:5 1 AM COMMERCIAL KITCHEN SERVICE TECHNICIAN COVID - 19 Confirmed 11/17/2023 11/17/2023 024 12:16 AM COMMERCIAL KITCHEN SERVICE TECHNICIAN Assessment Noted Time PHQ-9 Depression Total Score: 0 11/02/19 20 1:00 PM COMMERCIAL KITCHEN SERVICE TECHNICIAN documented as of this encounter Care Teams Counter Help Relationship Specialty Start Date End Date Sandra Salas MD PCP - General Family Medicine 09/16/15 01/19/23 Val Mustafa MD [address] [address] PCP - General Family Medicine 01/24/23 12/09/23 Hernandez Marrero PAC [address] [place] [address] PCP - General Physician Assisted Sales Representative 12/10/23 11/29/24 Sandra Pressley APRN, IT SECURITY PROJECT MANAGER [address] [place] [address] PCP - General Advanced Practice Nurse 11/30/24 Felix Kaiser MD [address] [address] [place] [address] Consulting Physician Nephrology 12/21/24 Kan Billings MD [address] [place] [address] Consulting Physician Cardiovascular Disease - Cardiology 12/21/24 documented as of this encounter
--- OUTSIDE RECORDS SUMMARY | 2025-02-21 13:48 | XMS_ITS | Encounter Summary ---
Author Organization [facility] Address [address] [place] [address] Phone Care Team Providers Care Food Quality Technician Name Role Phone Sandra Salas MD Primary Care Provider + [phone] Val Mustafa MD Primary Care Provider + [phone] Hernandez Marrero PAC Primary Care Provider + [phone] Sandra Pressley APRN, FIRE BOSS Primary Care P rovider Felix Kaiser MD Unavailable [phone] Kan Billings MD Unavailable [phone] Reason for Visit * Reason Comments Medication Refill Encounter Details Date Type Department Care Team (Late st Contact Info) Description 06/11/2021 Refill [facility] - Primary Care - [place] [address] [place] [address] Sandra Salas MD [address] [place] [address] Medication Refill Social History Tobacco [...] CDT Gender Identity Female 08/28/2023 1:03 PM CREDIT UNION TELLER Sexual Orientation Straight 08/28/2023 1: 03 PM CREDIT UNION TELLER COVID-19 Exposure Response Date Recorded In the last month, have you been in contact with someone who was confirmed or suspected to have Coronavirus / COVID-19? No / Unsure 06/04/2021 9:13 AM CDT documented as of this encounter Miscellaneous Notes * Telephone Encounter - Elena Putnam RN - 06/12/2021 11:19 AM CDT lisinopril (PRINIVIL, ZESTRIL) 20 MG Tablet 90 Tablet 06/04/2021 Refill too soon documented in this encounter Plan of Treatment Not on file documented as of this encounter Visit Diagnoses Not on filedocumented in this encounter Additional Health Concerns Infection Onset Date Last Indicated Resolved Time COVID - 19 11/17/2023 11/17/2023 11/17/2023 11:3 3 AM CREDIT UNION TELLER COVID - 19 11/17/2023 11/17/2023 11/17/2023 11:3 8 AM CREDIT UNION TELLER COVID - 19 11/17/2023 11/17/2023 11/17/2023 11:5 1 AM CREDIT UNION TELLER COVID - 19 Confirmed 11/17/2023 11/17/2023 03/2 024 12:16 AM CREDIT UNION TELLER Assessment Noted Time PHQ-9 Depression Total Score: 0 11/02/19 20 1:00 PM CREDIT UNION TELLER documented as of this encounter Care Teams Food Quality Technician Relationship Specialty Start Date End Date Sandra Salas MD PCP - General Family Medicine 09/16/15 01/19/23 Val Mustafa MD [address] [place] [address] PCP - General Family Medicine 01/24/23 12/09/23 Hernandez Marrero, PAC [address] [place] [address] PCP - General Physician Store Clerk Checker 12/10/23 11/29/24 Sandra Pressley APRN, FIRE BOSS [address] [place] [address] PCP - General Advanced Practice Nurse 11/30/24 Felix Kaiser MD [address] [facility] [address] [place] [address] Consulting Physician Nephrology 12/21/24 Kan Billings MD [address] [place] [address] [place] [address] Consulting Physician Cardiovascular Disease - Cardiology 12/21/24 documented as of this encounter
--- OUTSIDE RECORDS SUMMARY | 2025-02-21 13:48 | XMS_ITS | Encounter Summary ---
Author Organization [facility] Address [address] [place] [address] Phone Care Team Providers Care Xerox Machine Assembler Name Role Phone Sandra Salas MD Primary Care Provider + [phone] Val uMstafa MD Primary Care Provider + [phone] Hernandez Marrero PAC Primary Care Provider + [phone] Sandra Pressley APRN, BATCH HEAT TREAT OPERATOR Primary Care P rovider Felix Kaiser MD Unavailable [phone] Kan Billings MD Unavailable [phone] Reason for Visit * Reason Comments Medication Refill Encounter Details Date Type Department Care Team (Late st Contact Info) Description 06/13/2021 Refill [facility] - Primary Care - [place] [address] [place] [address] Sandra Salas MD [address] [place] [address] Medication Refill Social History Tobacco [...] CDT Gender Identity Female 08/28/2023 1:03 PM TEXTILE FINISHER Sexual Orientation Straight 08/28/2023 1: 03 PM TEXTILE FINISHER COVID-19 Exposure Response Date Recorded In the last month, have you been in contact with someone who was confirmed or suspected to have Coronavirus / COVID-19? No / Unsure 06/04/2021 9:13 AM CDT documented as of this encounter Miscellaneous Notes * Telephone Encounter - Elena Putnam RN - 06/13/2021 2:49 PM CDT Is pt on both lisinopril and lisinopril HCL? Please advise. Per nursing clinical judgement, provider to review and approve the medication(s) order(s) if appropriate. Requested Prescriptions Pending Prescriptions Disp Refills lisinopril-hydroCHLOROthiazide (PRINZIDE, ZESTORETIC) 20-25 MG Tablet [Pharmacy Med Name: LISINOPRIL-HCTZ 20/25MG TABLETS] 90 Tablet 1 Sig: TAKE 1 TABLET BY MOUTH DAILY Ramsey Inhibitors and Diuretics Combo Protocol Passed - 06/13/2021 2:49 PM Passed - Serum potassium on record [...] Clinician-entered: BP Readings from Last 3 Encounters: 06/04/21 124/72 11/28/20 124/84 05/18/20 132/68 Patient-entered: No data recorded Passed - Visit with relevant provider in past 12 months or upcoming 90 days Recent Visits Date Type Provider Dept 06/04/21 Office Visit Sandra Salas MD [facility] [address] 11/28/20 Office Visit Sandra Pressley MANUAL MACHINIST, BATCH HEAT TREAT OPERATOR [facility] Showing recent visits within past 365 days and meeting all other requirements Future Appointments No visits were found meeting these conditions. Showing future appointments within next 90 days and meeting all other requirements Passed - GFR on record in past 12 months GFR, EST. NONAFRICAN Date Value Ref Range Status 05/28/2021 40 (L) >=60 Final documented in this encounter Plan of Treatment Not on file documented as of this encounter Visit Diagnoses Not on filedocumented in this encounter Additional Health Concerns Infection Onset Date Last Indicated Resolved Time COVID - 19 11/17/2023 11/17/2023 11/17/2023 11:3 3 AM TEXTILE FINISHER COVID - 19 11/17/2023 11/17/2023 11/17/2023 11:3 8 AM TEXTILE FINISHER COVID - 19 11/17/2023 11/17/2023 11/17/2023 11:5 1 AM TEXTILE FINISHER COVID - 19 Confirmed 11/17/2023 11/17/2023 03// 024 12:16 AM TEXTILE FINISHER Assessment Noted Time PHQ-9 Depression Total Score: 0 11/02/19 20 1:00 PM TEXTILE FINISHER documented as of this encounter Care Teams Xerox Machine Assembler Relationship Specialty Start Date End Date Sandra Salas MD PCP - General Family Medicine 09/16/15 01/19/23 Val Mustafa MD [address] [place] [address] PCP - General Family Medicine 01/24/23 12/09/23 Hernandez Marrero, PAC [address] [place] [address] PCP - General Physician Forensics Team Director 12/10/23 11/29/24 Sandra Pressley APRN, BATCH HEAT TREAT OPERATOR [address] [place] [address] PCP - General Advanced Practice Nurse 11/30/24 Felix Kaiser MD [address] [facility] [address] [place] [address] Consulting Physician Nephrology 12/21/24 Kan Billings MD [address] [facility] [address] [place] [address] Consulting Physician Cardiovascular Disease - Cardiology 12/21/24 documented as of this encounter
--- OUTSIDE RECORDS SUMMARY | 2025-02-21 13:48 | XMS_ITS | Encounter Summary ---
Author Organization [facility] Address [address] [place] [address] Phone Care Team Providers Care Child Nurse Name Role Phone Sandra Salas MD Primary Care Provider + [phone] Val Mustafa MD Primary Care Provider + [phone] Hernandez Marrero PAC Primary Care Provider + [phone] Sandra Pressley APRN, CERTIFIED BREASTFEEDING EDUCATOR Primary Care P rovider Felix Kaiser MD Unavailable [phone] Kan Billings MD Unavailable [phone] Reason for Visit * Reason Comments Medication Refill Encounter Details Date Type Department Care Team (Late st Contact Info) Description 03/05/2022 Refill [facility] - Primary Care - [place] [address] [place] [address] Sandra Salas MD [address] [place] [address] Medication Refill Social History Tobacco [...] CDT Gender Identity Female 08/28/2023 1:03 PM ALTERATIONS SEWER Sexual Orientation Straight 08/28/2023 1: 03 PM ALTERATIONS SEWER documented as of this encounter Miscellaneous Notes * Telephone Encounter - Elena Putnam RN - 03/06/2022 10:41 AM CDT ezetimibe (ZETIA) 10 MG Tablet 90 Tablet 3 01/11/2021 Refill too soon documented in this encounter Plan of Treatment Not on file documented as of this encounter Visit Diagnoses Diagnosis Hyperlipidemia, unspecified hyperlipidemia type documented in this encounter Additional Health Concerns Infection Onset Date Last Indicated Resolved Time COVID - 19 11/17/2023 11/17/2023 11/17/2023 11:3 3 AM ALTERATIONS SEWER COVID - 19 11/17/2023 11/17/2023 11/17/2023 11:3 8 AM ALTERATIONS SEWER COVID - 19 11/17/2023 11/17/2023 11/17/2023 11:5 1 AM ALTERATIONS SEWER COVID - 19 Confirmed 11/17/2023 11/17/2023 024 12:16 AM ALTERATIONS SEWER Assessment Noted Time PHQ-9 Depression Total Score: 0 11/02/19 20 1:00 PM ALTERATIONS SEWER documented as of this encounter Care Teams Child Nurse Relationship Specialty Start Date End Date Sandra Salas MD PCP - General Family Medicine 09/16/15 01/19/23 Val Mustafa MD [address] [place] [address] PCP - General Family Medicine 01/24/23 12/09/23 Hernandez Marrero PAC [address] [place] [address] PCP - General Physician Dental Technician Apprentice 12/10/23 11/29/24 Sandra Pressley, GUINEA PIG BREEDER, CERTIFIED BREASTFEEDING EDUCATOR [address] [place] [address] PCP - General Advanced Practice Nurse 11/30/24 Felix Kaiser MD [address] [facility] [address] [place] [address] Consulting Physician Nephrology 12/21/24 Kan Billings MD [address] [facility] [place] [address] Consulting Physician Cardiovascular Disease - Cardiology 12/21/24 documented as of this encounter
--- OUTSIDE RECORDS SUMMARY | 2025-02-21 13:48 | XMS_ITS | Clinical Summary ---
Author Organization [facility] Address [address] [facility], [address] [address] Phone Care Team Providers Care Shop Estimator Name Role Phone Sandra Pressley APRN, HOME WORKER Primary Care P rovider Felix Kaiser MD Unavailable [phone] Kan Billings MD Unavailable [phone] Allergies Active Allergy Reactions Criticality Noted Date Comments Prochlorperazine Other (see Comments) Medium Dizziness Sulfa Antibiotics Nausea,Vomiting 09/16/2015 Medications DHA-Vitamin C-Lutein (EYE HEALTH FORMULA PO) Take 1 Tab by mouth 2 times daily. Active aspirin 81 MG Chewable Tablet Take 81 mg by mouth daily. Active Loratadine 10 MG Capsule Take 10 mg by mouth. Active Cholecalciferol (Vitamin D) 125 MCG (5000 UT) Capsule Take 5,000 Units by mouth daily. Active lisinopril (PRINIVIL, ZESTRIL) 20 MG TabletIndications :Primary hypertension Take 1 Tablet by mouth every evening. 90 Tablet 06/04/20 21 Active albuterol 108 (90 Base) MCG/ACT Aerosol Solution take 1-2 Puffs by inhalation every 6 hours as needed for Wheezing. 8.5 g 3 05/06/20 23 Active LORazepam (ATIVAN) 0.5 MG TabletIndications :Anxiety Take 1 Tablet by mouth nightly as needed for Anxiety or Sleep. 30 Tablet 09/08/20 24 Active metoprolol Succinate (TOPROL-XL) 100 MG TABLET SR 24 HRIndications:Ess ential hypertension TAKE 1 TABLET BY MOUTH DAILY 90 Tablet 11/01/19 25 Active pravastatin (PRAVACHOL) 40 MG TabletIndications :Hyperlipidemia, unspecified hyperlipidemia type TAKE 1 TABLET BY MOUTH DAILY 90 Tablet 01/01/20 25 Active lisinopril-hydroC HLOROthiazide (PRINZIDE, ZESTORETIC) 20-25 MG Tablet TAKE 1 TABLET BY MOUTH DAILY 90 Tablet 01/29/20 25 Active lisinopril-hydroC HLOROthiazide (PRINZIDE, ZESTORETIC) 20-25 MG Tablet TAKE 1 TABLET BY MOUTH DAILY 90 Tablet 1 09/10/20 24 2024 Discontinued Active Problems Problem Noted Date Diagnosed Date Chronic right shoulder pain 11/30/2024 Paroxysmal atrial fibrillation 11/02/2019 IFG (impaired fasting glucose) 11/02/2019 Psoriasis 11/12/2018 Statin intolerance 05/20/2017 Obesity (BMI 35.0-39.9 without comorbidity) 05/07 Anxiety Claustrophobia Hypertension, essential Stage 3b chronic kidney disease DJD (degenerative joint disease) Vitamin D deficiency Mixed hyperlipidemia Resolved Problems Problem Noted Date Diagnosed Date Resolved Date Prediabetes 05/18/2020 12/21/2024 Encounters Date Type Department Care Team Description 01/28/2025 Refill [facility] [place] [address] [place] [phone] Hernandez Marrero, PAC Medication Refill 12/31/2024 Refill [facility] [place] [address] [place] [address] Hernandez Marrero, PAC Medication Refill 12/21/2024 8:00 AM CDT Office Visit [facility] [place] [address] [place] [address] Pete Harris MD Hypertension, essential (Primary Dx); Mixed hyperlipidemia; Stage 3b chronic kidney disease (HCC) Discharge Disposition: Discharged to home or Selfcare 12/20/2024 Travel 12/19/[address] [facility] [place] [address] [place] [phone] Hernandez Marrero, PAC Referral (Dr. De Santiago) 12/16/2024 Plan of Care Documentation [facility] [address] [place] [phone] 12/15/2024 10:45 AM CDT Physical Therapy [facility] [address] [place] [phone] Sandra Pressley APRN, CNP Fisher, Debra C, PT Abnormal posture (Primary Dx); Chronic right shoulder pain; Weakness Discharge Disposition: Discharged to home or Selfcare 12/14/2024 Travel 12/10/2024 Results Follow-Up [facility] [place] [address] [place] [address] Sandra Pressley APRN, CNP CMP (COMPREHENSIVE METABOLIC PANEL), HEMOGLOBIN A1C W/ ESTIMATED GLUCOSE, LIPID PANEL, Additional followed-up results: 4 12/09/2024 10:20 AM [facility] Ancillary Procedure [facility] [place] [address] [place] [phone] Sandra Pressley APRN, CNP Discharge Disposition: Discharged to home or Selfcare 12/09/2024 10:10 AM [facility] Lab [facility] [place] [address] [place] [phone] Lab, [address] Primary hypertension; Mixed hyperlipidemia; Prediabetes; Paroxysmal atrial fibrillation (HCC); Vitamin D deficiency Discharge Disposition: Discharged to home or Selfcare 12/07/2024 Travel 11/30/2024 10:45 AM [facility] Office Visit [facility] [place] [address] [place] [phone] Sandra Pressley, HR RECEPTIONIST, VINICIO Primary hypertension (Primary Dx); Mixed hyperlipidemia; Chronic right shoulder pain; Vitamin D deficiency; Stage 3b chronic kidney disease (HCC); Prediabetes; Paroxysmal atrial fibrillation (HCC); Claustrophobia Discharge Disposition: Discharged to home or Selfcare 11/29/2024 Travel from Last 3 Months Immunizations Immunization Administration Dates Next Due Covid-19, Mrna, Lnp-s, PF, 1 00 mcg/0.5 mL Dose (Moderna) 12/14/2020,11/16/2020 Influenza Vaccine 08/06/2014,08/06/2014 Influenza Vaccine greater than 3 yrs 07/20/2020, 07/17/2019 Influenza Vaccine, Quadrivalent, PF 07/23/2022 Influenza, Quadrivalent, Adjuvanted 09/08/2023,1 ,07/20/2020 Influenza, high-dose, trivalent, PF 12/2024,07/30/2018,07/29/2017,2015,10/26/2015,08/04/2013 PUR PCV-13 08/20/2016 Pneumococcal Vaccine - 13 Valent 08/20/2016 Pneumococcal Vaccine Adult - 23 Valent 05/18/2020,10/06/2006 Pneumococcal Vaccine, Unspec ified Formulation 08/06/2012 RSV, Recombinant, Protein Le bunit Rsvpref, Adjuvant Recon (Arexvy) 10/24/2023 TDAP Vaccine 09/16/2015,10/06/2012 Zoster Vaccine Recombinant 02/27/2024,10/24/2023 Social History Tobacco Use Types Packs/Day Years Used Date Smoking Tobacco: Never Smokeless Tobacco: Never Tobacco Cessation:Counseling Given: No Alcohol Use Standard Drinks/Week Comments Not Currently 0 (1 standard drink = 0.6 oz pur e alcohol) occassionally glass of wine [facility] Utilities Answer Date Recorded In the past 12 months has e electric, gas, oil, or water company threatened to shut off services in your home? No 11/30/2024 Social Connection and Isolat ion Panel [NHANES] Answer Date Recorded In a typical week, how many times do you talk on the phone with family, friends, or neighbors? More than three times a week 11/30/2024 How often do you get togethe r with friends or relatives? More than three times a week 11/30/2024 How often do you attend chur ch or cheondoism services? More than 4 times per year 11/30/2024 Do you belong to any clubs o r organizations such as mormonism groups, unions, fraternal or athletic groups, or school groups? Yes 11/30/2024 How often do you attend meet ings of the clubs or organizations you belong to? More than 4 times per year 11/30/2024 Are you , , di vorced, , never , or living with a partner? 11/30/2024 AUDIT-C Answer Date Recorded Q1: How often do you have a drink containing alc ohol? Monthly or less 11/30/2024 Q2: How many drinks containi ng alcohol do you have on a typical day when you are drinking? 1 or 2 11/30/2024 Q3: How often do you have si x or more drinks on one occasion? Never 11/30/2024 Overall Financial Resource Strain (CARDIA) Answe r Date Recorded How hard is it for you to pa y for the very basics like food, housing, medical care, and heating? Not very hard 11/30/2024 PHQ-2 Answer Date Recorded Total Score - Questions 1-9 0 12/04 [facility] [place] of Occupat ional Health - Occupational Stress Questionnaire Answer Date Recorded Do you feel stress - tense, restless, nervous, or anxious, or unable to sleep at night because your mind is troubled all the time - these days? Not at all 11/30/2024 Exercise Vital Sign Answer Date Recorde d On average, how many days pe r week do you engage in moderate to strenuous exercise (like a brisk walk)? 0 days 11/30/2024 On average, how many minutes do you engage in exercise at this level? 0 min 11/30/2024 Hunger Vital Sign Answer Date Recorded Within the past 12 months, y ou worried that your food would run out before you got the money to buy more. Never true 11/30/19 Within the past 12 months, t he food you bought just didn't last and you didn't have money to get more. Never true 11/30/2024 PRAPARE - Transportation Answer Date Re corded In the past 12 months, has l ack of transportation kept you from medical appointments or from getting medications? No 11/07 In the past 12 months, has l ack of transportation kept you from meetings, work, or from getting things needed for daily living? No 11/30/2024 Housing Stability Vital Sign Answer Chirag e Recorded In the last 12 months, was t here a time when you were not able to pay the mortgage or rent on time? Yes 11/30/2024 In the past 12 months, how m any times have you moved where you were living? 0 11/30/2024 At any time in the past 12 m [facility], were you homeless or living in a alf (including now)? No 11/30/2024 Education Answer Date Recorded What is the highest level of school you have completed or the highest degree you have received? Some college, no degree 11/18/2020 Comments No Sex and Gender Information Value Date Recorded Sex Assigned at Not on file Legal Sex Female 8:49 PM CDT Gender Identity Female 08/28/2023 1:03 PM [facility] Sexual Orientation Straight 08/28/2023 1: 03 PM [facility] MAN Last Filed Vital Signs Vital Sign Reading Time Taken Comments Blood Pressure 128/72 12/21/2024 8:11 AM CDT Pulse 77 12/21/2024 8:11 AM CDT Temperature 36.3 C (97.4 F) 12/21/2024 8:11 AM CDT Respiratory Rate 22 12/21/2024 8:11 AM CDT Oxygen Saturation 95% 12/21/2024 8:11 AM CDT Inhaled Oxygen Concentration - - Weight 94.2 kg (207 lb 9.6 oz) 12/21/2024 8:11 A M CDT Height 160 cm (5' 3 ) 12/21/2024 8:11 AM CDT Body Mass Index 36.77 12/21/2024 8:11 AM CDT Plan of Treatment Health Maintenance Due Date Last Done Comments Cologuard 1992 Immunochemical Fecal Occult Blood 1992 SARS-COV-2 Immunization ( season) 2024 10/05/2021, 12/14/2020, 11/16/2020 Colonoscopy High Risk 06/21/2025 06/21/2015 Colonoscopy 06/21/2025 06/21/2015 Colorectal Cancer Screening 06/21/2025 Td Immunization Every 10 Years (Adults With 1 Tdap) 09/16/2025 09/16/2015, 10/06/2012 Pneumococcal Immunization (50+ years) Completed 05/18/2020, 08/20/2016, 08/20/2016, Additional history exists Pneumococcal Immunization Combined Discontinued 05/18/2020, 08/20/2016, 08/20/2016, Additional history exists DEXA Bone Density Discontinued 12/13/2020, 12/13/2020 Hepatitis C Virus (HCV) Screening Completed 09/08/2023 Respiratory Syncytial Virus (RSV) Immunization (Adult) Completed 10/24/2023 Zoster Immunization Completed 02/27/2024, Influenza Immunization Completed , 09/08/2023, 07/23/2022, Additional history exists Hepatitis B Immunization Aged Out No longer eligible based on patient's age to complete this topic Human Papillomavirus (HPV) Immunization Aged Out No longer eligible based on patient's age to complete this topic Meningococcal Immunization (ACWY) Aged Out No longer eligible based on patient's age to complete this topic Rotavirus Immunization Aged Out No lo nger eligible based on patient's age to complete this topic Procedures Procedure Name Priority Date/Time Associated Diagnosis Comments XR SHOULDER COMPLETE RIGHT Routine 12/09/2024 10:25 AM [facility] Chronic right shoulder pain THYROID SCREEN WITH REFLEX Routine 12/09/2024 10:19 AM [employer] Primary hypertension Mixed hyperlipidemia Prediabetes Paroxysmal atrial fibrillation (HCC) CBC WITH AUTO DIFFERENTIAL Routine 12/09/2024 10:19 AM [employer] Primary hypertension Mixed hyperlipidemia Prediabetes Paroxysmal atrial fibrillation (HCC) VITAMIN D, 25 HYDROXY TOTAL Routine 12/09/2024 10:19 AM [facility] [facility] Vitamin D deficiency THYROID SCREEN WITH REFLEX Routine 12/09/2024 10:19 AM [employer] Primary hypertension Mixed hyperlipidemia Prediabetes Paroxysmal atrial fibrillation (HCC) LIPID PANEL Routine 12/09/2024 10:19 AM [employer] [facility] Primary hypertension Mixed hyperlipidemia Prediabetes Paroxysmal atrial fibrillation (HCC) HEMOGLOBIN A1C W/ ESTIMATED GLUCOSE Routine 12/09/2024 10:19 AM [employer] [facility] Primary hypertension Mixed hyperlipidemia Prediabetes Paroxysmal atrial fibrillation (HCC) CMP (COMPREHENSIVE METABOLIC PANEL) Routine 12/09/2024 10:19 AM [employer] Primary hypertension Mixed hyperlipidemia Prediabetes Paroxysmal atrial fibrillation (HCC) COMPLETE BLOOD COUNT (CBC) WITH DIFF Routine 12/09/2024 10:19 AM [employer] Primary hypertension Mixed hyperlipidemia Prediabetes Paroxysmal atrial fibrillation (HCC) HEPATITIS C ANTIBODY Routine 09/08/2023 9:32 AM [facility] MAN Encounter for hepatitis C screening test for low risk patient PAIGE BONE DENSITOMETRY AXIAL SKELETON Routine 12/13/2020 Postmenopausal HM COLONOSCOPY Routine 06/21/2015 from Last 3 Months or Most Recently Relevant to Health Maintenance Results * XR SHOULDER COMPLETE RIGHT (12/09/2024 10:25 AM [facility] MAN) Anatomical Region Laterality Modality UPPER EXTREMITY, shoulder Right Digita l Radiography 12/12/2024 11:0 8 AM CDT Impressions 12/12/2024 11:10 AM CDT IMPRESSION: Moderate right glenohumeral joint osteoarthritis. Right rotator cuff calcific tendinitis. Narrative 12/12/2024 11:10 AM CDT EXAM DESCRIPTION: XR SHOULDER COMPLETE RIGHT REASON FOR STUDY: Right shoulder osteoarthritis. FINDINGS: Three views submitted without comparison. No acute fracture. Alignment is normal. Moderate glenohumeral and mild acromioclavicular joint osteoarthritis. Calcific tendinitis is present. THIS IS AN ELECTRONICALLY VERIFIED FINAL REPORT 12/12/2024 11:08 AM - Electronically signed by Ron Velasquez M.D. MF: [email or web address] Report ID: [id number] Reading Location: [id number] Procedure Note Ron Velasquez MD - 12/12/2024 EXAM DESCRIPTION: XR SHOULDER COMPLETE RIGHT REASON FOR STUDY: Right shoulder osteoarthritis. FINDINGS: Three views submitted without comparison. No acute fracture. Alignment is normal. Moderate glenohumeral and mild acromioclavicular joint osteoarthritis. Calcific tendinitis is present. THIS IS AN ELECTRONICALLY VERIFIED FINAL REPORT 12/12/2024 11:08 AM - Electronically signed by Ron Velasquez M.D. MF: [email or web address] Report ID: [id number] Reading Location: [id number] IMPRESSION: Moderate right glenohumeral joint osteoarthritis. Right rotator cuff calcific tendinitis. Sandra Pressley APRN, CNP IMG DIAGNOSTIC ORDERABLES Final Result * VITAMIN D, 25 HYDROXY TOTAL (12/09/2024 10:19 AM [facility] MAN) VITAMIN D, 25 HYDROX 55.6 ng/mL 12/09/2024 1:19 PM [facility] MAN [facility] Blood Venipuncture / Unknown 12/09/2024 10:19 AM [facility] 12/09/2024 10:19 AM [place] MAN Narrative [facility] - 12/09/2024 1:19 PM [employer] MAN Published reference ranges for Vitamin D vary depending on time and place and method of testing, and on patient's age, sex, ethnicity and levels of other measured analytes such as parathormone, calcium and phosphorus. The result should be evaluated in conjunction with clinical findings and suspicions. [place] of [employer] and Endocrine Clinical Practice Guidelines: Status Vitamin D levels (ng/mL) Deficient <=20 At risk of inadequacy 21-29 Sufficient 30-100 Centers of Disease Control and Prevention Guidelines: Status Vitamin D levels (ng/mL) Deficient <13 At risk of inadequacy 13-19 Sufficient 20-50 Possibly harmful >50 References: [place] [employer], 2010 Dietary reference intakes for calcium and vitamin D. [place]: The National Academies Press. Marychuy M, Mansoor N, Mario LAYTON, et al., Evaluation, treatment, and prevention of Vitamin D deficiency: an Endocrinology Clinical Practice Guideline. JCEM 2011 96: 7 3039-6518. Akiko A, Jonathan C, Sedrick D, et al., Vitamin D Status: [place], , [facility] data brief, no. 59, MD Masha: [facility] for Health Statistics. 2011. Sandra Pressley APRN, VINICIO CHEMISTRY ORDER JOSE Final Result Performing Organization Address City/[facility]/ZIP Co de Phone Number [facility] [address] [place] [address] * THYROID SCREEN WITH REFLEX (12/09/2024 10:19 AM [facility] MAN) TSH 1.397 0.300 - 5.000 mIU/L 12/09/2024 1:00 PM [place] [facility] Blood Venipuncture / Unknown 12/09/2024 10:19 AM [place] 12/09/2024 10:19 AM [place] [facility] Sandra Pressley APRN, HOME WORKER CHEMISTRY ORDER JOSE Final Result [facility] [address] [place] [address] * HEMOGLOBIN A1C W/ ESTIMATED GLUCOSE (12/09/2024 10:19 AM [facility] MAN) HGB-A1C 5.6 4.0 - 6.0 % 12/09/2024 12:51 PM [place] MAN [facility] Est Average Glucose 114.0 mg/dL 12/09/2024 12:51 PM [employer] [facility] Blood Venipuncture / Unknown 12/09/2024 10:19 AM [employer] [facility] 12/09/2024 10:19 AM [place] MAN Narrative [facility] - 12/09/2024 12:51 PM [place] [facility] HEMOGLOBIN A1C: DIABETIC PATIENTS: WELL-CONTROLLED: 6.2 - 7.0 INTERMEDIATE WELL-CONTROLLED: 7.0 - 9.0 POORLY-CONTROLLED: >9.0 Specimens containing greater than 5% of Hemoglobin F may result in lower than expected % HbA1C results. Sandra Pressley APRN, CNP CHEMISTRY ORDER JOSE Final Result [facility] [address] [place] [address] * (ABNORMAL) CBC WITH AUTO DIFFERENTIAL (12/09/2024 10:19 AM [facility] MAN) WBC 5.34 4.00 - 12.00 10(3)/mcL 12/09/2024 1:09 PM [facility] RBC 4.35 3.80 - 5.30 10(6)/mcL 12/09/2024 1:09 PM [facility] HEMOGLOBIN (HGB) 13.2 12.0 - 15.8 g/dL 12/09/2024 1:09 PM [facility] HEMATOCRIT (HCT) 41.6 36.0 - 47.0 % 12/09/2024 1:09 PM [facility] MCV 95.6 82.0 - 96.0 fL 12/09/2024 1:09 PM [facility] MCH 30.3 26.0 - 34.0 pg 12/09/2024 1:09 PM [facility] MCHC 31.7 31.0 - 36.0 g/dL 12/09/2024 1:09 PM [facility] PLATELET COUNT 171 140 - 440 10(3)/mcL 12/09/2024 1:09 PM [facility] RDW 13.2 11.8 - 15.5 % 12/09/2024 1:09 PM [facility] MPV 11.0 9.7 - 12.4 fL 12/09/2024 1:09 PM [facility] NEUTROPHILS 67.3 47.0 - 73.0 % 12/09/2024 1:09 PM [facility] LYMPHOCYTES 20.4 18.0 - 42.0 % 12/09/2024 1:09 PM [facility] MONOCYTES 9.7 4.0 - 12.0 % 12/09/2024 1:09 PM [facility] EOSINOPHILS 1.9 0.0 - 5.0 % 12/09/2024 1:09 PM [facility] BASOPHILS 0.7 0.0 - 1.0 % 12/09/2024 1:09 PM [facility] ABSOLUTE NEUTROPHILS 3.59 1.60 - 7.70 10(3)/[facility] 12/09/2024 1:09 PM [facility] ABSOLUTE LYMPHOCYTES 1.09(L) 1.30 - 3.20 10(3)/[facility] 12/09/2024 1:09 PM [facility] ABSOLUTE MONOCYTES 0.52 0.20 - 1.00 10(3)/[facility] 12/09/2024 1:09 PM [facility] ABSOLUTE EOSINOPHIL 0.10 0.00 - 0.40 10(3)/[facility] 12/09/2024 1:09 PM [facility] ABSOLUTE BASOPHILS 0.04 0.00 - 0.10 10(3)/[facility] 12/09/2024 1:09 PM [facility] NRBC PER 100 WBC 0 12/10/19 25 1:09 PM [facility] Blood Venipuncture / Unknown 12/09/2024 10:19 AM [facility] [facility] 12/09/2024 10:19 AM [facility] us Sandra Pressley HR RECEPTIONIST, HOME WORKER HEMATOLOGY ORDE MAURIZIO Final Result [facility] [address] [place] [address] * (ABNORMAL) LIPID PANEL (12/09/2024 10:19 AM [place] [facility]) CHOLESTEROL 179 <200 mg/dL 12/09/2024 1:14 PM [place] [facility] TRIGLYCERIDES 231(H) <150 mg/dL 12/09/2024 1:14 PM [place] [facility] HDL CHOLESTEROL 53 >40 mg/dL 1:14 PM [place] [facility] LDL 80 <130 mg/dL 12/09/2024 1:14 PM [place] [facility] VLDL 46 10 - 50 mg/dL 12/09/2024 1:14 PM [place] [facility] CHOL/HDL RATIO 3.4 0.0 - 4.4 12/09/2024 1:14 PM [place] [facility] NON-HDL CHOLESTEROL 126 <130 mg/dL 12/09/2024 1:14 PM [facility] IS THE PATIENT REQUIRED TO BE FASTING? Yes 12/09/2024 1:14 PM [facility] HAS THE PATIENT BEEN FASTING? Yes 12/09/2024 1:14 PM [facility] Blood Venipuncture / Unknown 12/09/2024 10:19 AM [facility] [facility] 12/09/2024 10:19 AM [place] [facility] Sandra Pressley APRN, CNP CHEMISTRY ORDER JOSE Final Result [facility] [address] [place] [address] * (ABNORMAL) CMP (COMPREHENSIVE METABOLIC PANEL) (12/09/2024 10:19 AM [place] [facility]) SODIUM 142 136 - 145 mmol/L 12/09/2024 1:14 PM [place] [facility] POTASSIUM 4.5 3.5 - 5.1 mmol/L 12/09/2024 1:14 PM [facility] CHLORIDE 105 98 - 107 mmol/L 12/09/2024 1:14 PM [facility] CO2, VENOUS 31(H) 22 - 30 mmol/L 12/09/2024 1:14 PM [facility] ANION GAP 10.5 <18.0 mmol/L 12/09/2024 1:14 PM [facility] GLUCOSE 94 70 - 99 mg/dL 12/09/2024 1:14 PM [facility] BUN 31(H) 10 - 20 mg/dL 12/09/2024 1:14 PM [facility] CREATININE, BLOOD 1.25(H) 0.60 - 1.00 mg/dL 12/09/2024 1:14 PM [facility] BUN/CREATININE RATIO 25(H) 12 - 20 ratio 12/09/2024 1:14 PM [facility] TOTAL PROTEIN 8.0 6.0 - 8.0 g/dL 12/09/2024 1:14 PM [facility] ALBUMIN 4.0 3.5 - 5.0 g/dL 12/09/2024 1:14 PM [facility] A/G RATIO 1.0 1.0 - 2.2 12/09/2024 1:14 PM [facility] CALCIUM 9.3 8.7 - 10.5 mg/dL 12/09/2024 1:14 PM [facility] T BILI 0.5 0.2 - 1.2 mg/dL 12/09/2024 1:14 PM [facility] SGOT (AST) 22 <43 U/L 12/09/2024 1:14 PM [facility] SGPT (ALT) 16 <56 U/L 12/09/2024 1:14 PM [facility] ALKALINE PHOSPHATASE 48 40 - 150 U/L 12/09/2024 1:14 PM [facility] IS THE PATIENT REQUIRED TO BE FASTING? No 12/09/2024 1:14 PM [place] MAN [facility] GFR, ESTIMATED 43(L) >=60 12/09/2024 1:14 PM [place] [facility] Comment: Creatinine Clearance is the preferred criteria for selecting drug dose adjustments in renally impaired patients. The GFR is provided as additional pertinent clinical information. GFR is reported in mL/min/1.73 sq m. Calculation based on the Chronic Kidney Disease Epidemiology Collaboration (CKD- EPI) equation refit without adjustment for race. GFR, EST. 50(L) >=60 025 1:14 PM [place] MAN [facility] GFR, EST. NONAFRICAN 41(L) >=60 12/09/2024 1:14 PM [place] MAN [facility] Blood Venipuncture / Unknown 12/09/2024 10:19 AM [employer] [facility] 12/09/2024 10:19 AM [place] [facility] Sandra Pressley APRN, CNP CHEMISTRY ORDER JOSE Final Result [facility] [address] [place] [address] * HEPATITIS C ANTIBODY (09/08/2023 9:32 AM [facility] MAN) hepatitis C antibody 0.09 <1 S/[facility] [id number] B 09/08/2023 9:23 PM [facility] [facility] Comment: Signal/Cutoff ratio < 0.79 is Nondetected Signal/Cutoff ratio 0.80-0.99 is Grayzone Signal/Cutoff ratio > 0.99 is Detected Supplemental assays are recommended if signal/cutoff ratio is >/=1.00. Signal/cutoff ratio result >/= 5.00 is 97% predictive of positivity for recombinant immunoblot assay (RIBA) and will be reported to the [place] Department of Public Health as required. Blood Venipuncture / Unknown 09/08/2023 9:32 AM KNOCKDOWN MAN 09/08/2023 9:32 AM KNOCKDOWN MAN Val Mustafa MD CHEMISTRY ORDERABLES Final R esult [facility] [address] [place] [address], [place] * [facility] BONE DENSITOMETRY AXIAL SKELETON (12/13/2020) Anatomical Region Laterality Modality BODY N/A Other us Sandra Pressley APRN, CNP IMG DEXA ORDERA BLES Final Result * HM COLONOSCOPY (06/21/2015) us Sandra Salas MD PROCEDURE/MINOR SURGICAL ORD ERABLES Final Result from Last 3 Months or Most Recently Relevant to Health Maintenance Insurance MEDICARE C [employer] [place] [id number] MEDICARE C [employer] Advance Directives Documents on File Type Date Recorded Patient Personal Financial Representative Expl anation Advance Care Planning Discussion 11/26/2023 11:08 AM ACP [id number]|2025-02-21 13:48:00|2025-02-21 13:47:00|XMS_ITS|BKG DAEMON|External Medical Summaries|[id number]|" Encounter Summary Created on: February 21, 2025 Paolaflynn Radha Joseph : 1940 Sex: Female Author Organization [facility] Address [address] [facility] [place] [address] Phone Care Team Providers Care Shop Estimator Name Role Phone Sandra Salas MD Primary Care Provider + [phone] Val Mustafa MD Primary Care Provider + [phone] Hernandez Marrero PAC Primary Care Provider + [phone] Sandra Pressley APRN, HOME WORKER Primary Care P rovider Felix Kaiser MD Unavailable [phone] Kan Billings MD Unavailable [phone] Reason for Visit * Reason Comments Medication Refill Encounter Details Date Type Department Care Team (Late st Contact Info) Description 05/18/2021 Refill [facility] - Primary Care - [place] [address] [place] [address] Sandra Salas MD [address] [place] [address] Medication Refill Social History Tobacco Use Types [...] CDT Gender Identity Female 08/28/2023 1:03 PM KNOCKDOWN MAN Sexual Orientation Straight 08/28/2023 1: 03 PM KNOCKDOWN MAN documented as of this encounter Miscellaneous Notes * Telephone Encounter - Elena Putnam RN - 05/18/2021 8:10 AM CDT metoprolol Succinate (TOPROL-XL) 100 MG TABLET SR 24 HR 90 Tablet 0 05/14/2021 Refill too soon documented in this encounter Plan of Treatment Not on file documented as of this encounter Visit Diagnoses Diagnosis Essential hypertension Unspecified essential hypertension documented in this encounter Additional Health Concerns Infection Onset Date Last Indicated Resolved Time COVID - 19 11/17/2023 11/17/2023 11/17/2023 11:3 3 AM KNOCKDOWN MAN COVID - 19 11/17/2023 11/17/2023 11/17/2023 11:3 8 AM KNOCKDOWN MAN COVID - 19 11/17/2023 11/17/2023 11/17/2023 11:5 1 AM KNOCKDOWN MAN COVID - 19 Confirmed 11/17/2023 11/17/2023 024 12:16 AM KNOCKDOWN MAN Assessment Noted Time PHQ-9 Depression Total Score: 0 11/02/19 20 1:00 PM KNOCKDOWN MAN documented as of this encounter Care Teams Shop Estimator Relationship Specialty Start Date End Date Sandra Salas MD PCP - General Family Medicine 09/16/15 01/19/23 Val Mustafa MD [address] [place] [address] PCP - General Family Medicine 01/24/23 12/09/23 Hernandez Marrero, PAC [address] [place] [address] PCP - General Physician Floor Mechanic 12/10/23 11/29/24 Sandra Pressley APRN, HOME WORKER [address] [place] [address] PCP - General Advanced Practice Nurse 11/30/24 Felix Kaiser MD [address] [facility] [address] [place] [address] Consulting Physician Nephrology 12/21/24 Kan Billings MD [address] [place] [address] [place] [address] Consulting Physician Cardiovascular Disease - Cardiology 12/21/24 documented as of this encounter "
--- OUTSIDE RECORDS SUMMARY | 2025-02-21 13:48 | XMS_ITS | Referral Summary ---
Author Organization [facility] Address [address] [place] [id number] Care Team Providers Care Band Lining Bander Name Role Phone CamilokeithBlaze jane NP Primary Care Provide r Encounters Date Type Department Care Team Description 12/02/2024 10:15 AM VASCULAR RADIOLOGIST Lab [address] [address] from Last 3 Months Allergies Active Allergy Reactions Criticality Noted Date [...] 09/09/2017 Tendinitis of both rotator cuffs 09/09/2017 Immunizations Immunization Administration Dates Next Due Influenza, Trivalent, IM (MDV) 07/11/2014,2007 Pneumococcal Polysaccharide PPV23 10/06/2006 Social History Tobacco Use Types Packs/Day Years Used Date Smoking Tobacco: Never Smokeless Tobacco: Never Tobacco Cessation:Counseling Given: Not Answered Alcohol Use Standard Drinks/Week Comments No 0 (1 standard drink = 0.6 oz pur e alcohol) Comments No Sex and Gender Information Value Date Recorded Sex Assigned at Not on file Legal Sex Female 12:26 AM VASCULAR RADIOLOGIST Gender Identity Not on file Sexual Orientation [...] cm (5' 3 ) 11/11/2024 3:23 PM VASCULAR RADIOLOGIST Body Mass Index 38.62 05/27/2024 8:36 AM CDT Plan of Treatment Not on file Procedures Procedure Name Priority Date/Time Associated Diagnosis Comments EGFR Routine 12/02/2024 10:36 AM VASCULAR RADIOLOGIST DIFFERENTIAL AUTO Routine 12/02/2024 10: 36 AM VASCULAR RADIOLOGIST RENAL FUNCTION PANEL Routine 12/02/2024 10:36 AM VASCULAR RADIOLOGIST PTH Routine 12/02/2024 10:36 AM VASCULAR RADIOLOGIST CBC WITH AUTO DIFFERENTIAL Routine 12/02/2024 10:36 AM VASCULAR RADIOLOGIST PROTEIN / CREATININE RATIO, URINE, RANDOM Routine 12/02/2024 10:35 AM VASCULAR RADIOLOGIST DEXA AXIAL SKELETON BONE DENSITY 1 OR MORE SITES Schedule Routine, Read Routine (OP Routine) 12/13/2020 10:06 AM VASCULAR RADIOLOGIST Encounter for screening for osteoporosis from Last 3 Months or Most Recently Relevant to Health Maintenance Results * (ABNORMAL) eGFR (12/02/2024 10:36 AM VASCULAR RADIOLOGIST) eGFR 45(L) >=60 mL/min/1. 73 m2 Comment: [...] reviewed 2021. Blood 12/02/2024 10:3 6 AM VASCULAR RADIOLOGIST 12/02/2024 11:29 AM VASCULAR RADIOLOGIST us Felix Kaiser MD LAB BLOOD ORDERABLES Final R esult [facility] ([place]) [address] [place] [address] * Differential, auto (12/02/2024 10:36 AM VASCULAR RADIOLOGIST) Neutrophil abs 2.3 1.5 - 6.5 K/cumm Imm gran abs 0.0 0.0 - 0.1 K/cumm [facility] ([place]) Lymphocyte abs 1.1 0.8 - 3.3 K/cumm [facility] ([place]) Monocyte abs 0.5 0.2 - 0.8 K/cumm [facility] ([place]) Eosinophil abs 0.1 0.0 - 0.5 K/cumm [facility] ([place]) Basophil abs 0.0 0.0 - 0.1 K/cumm [facility] ([place]) Neutrophil pct 58.7 % [facility] ([place]) Comment: Interpretive Data Percent cell count reference ranges are not reported, since discordance with absolute values may lead to misinterpretation of CBC data. Current Interpretive Data was last revised on 2018. Imm gran pct 0.3 % [facility] ([place]) Comment: Interpretive Data Percent cell count reference ranges are not reported, since discordance with absolute values may lead to misinterpretation of CBC data. Current Interpretive Data was last revised on 2018. Lymphocyte pct 26.6 % [facility] ([place]) Comment: Interpretive Data Percent cell count reference ranges are not reported, since discordance with absolute values may lead to misinterpretation of CBC data. Current Interpretive Data was last revised on 2018. Monocyte pct 11.6 % [facility] ([place]) Comment: Interpretive Data Percent cell count reference ranges are not reported, since discordance with absolute values may lead to misinterpretation of CBC data. Current Interpretive Data was last revised on 2018. Eosinophil pct 2.3 % [facility] ([place]) Comment: Interpretive Data Percent cell count reference ranges are not reported, since discordance with absolute values may lead to misinterpretation of CBC data. Current Interpretive Data was last revised on 2018. Basophil pct 0.5 % [facility] ([place]) Comment: Interpretive Data Percent cell count reference ranges are not reported, since discordance with absolute values may lead to misinterpretation of CBC data. Current Interpretive Data was last revised on 2018. Blood 12/02/2024 10:3 6 AM VASCULAR RADIOLOGIST 12/02/2024 11:29 AM VASCULAR RADIOLOGIST Felix Kaiser MD LAB BLOOD ORDERABLES Final R esult [facility] ([place]) [address] [facility] [place] [address] * (ABNORMAL) CBC with auto differential (12/02/2024 10:36 AM VASCULAR RADIOLOGIST) WBC 4.0 3.8 - 9.9 K/cumm Hgb [...] [facility] ([place]) Blood 12/02/2024 10:3 6 AM VASCULAR RADIOLOGIST 12/02/2024 11:29 AM VASCULAR RADIOLOGIST Felix Kaiser MD LAB BLOOD ORDERABLES Final R esult [facility] ([place]) [address] [facility] [place] [address] * PTH (12/02/2024 10:36 AM VASCULAR RADIOLOGIST) PTH 27 15 - 65 pg/mL Blood 12/02/2024 10:3 6 AM VASCULAR RADIOLOGIST 12/02/2024 11:29 AM VASCULAR RADIOLOGIST us Felix Kaiser MD LAB BLOOD ORDERABLES Final R esult [facility] ([place]) [address] [facility] [place] [address] * (ABNORMAL) Renal function panel (12/02/2024 10:36 AM VASCULAR RADIOLOGIST) Sodium 140 135 - 145 mmol/L Potassium, [...] [facility] ([place]) Blood 12/02/2024 10:3 6 AM VASCULAR RADIOLOGIST 12/02/2024 11:29 AM VASCULAR RADIOLOGIST Felix Kaiser MD LAB BLOOD ORDERABLES [facility] Performing Organization Address [facility] de Phone Number [facility] ([place]) [address] [facility] [place] [address] * Protein / creatinine ratio, urine, random (12/02/2024 10:35 AM VASCULAR RADIOLOGIST) Protein, ur, quant 6.6 mg/dL Comment: Interpretive Data No reference range established. Current interpretive data was last revised 2019. Creatinine Ur 67.5 mg/dL [facility] ([place]) Comment: Interpretive Data No reference range established. Current interpretive data was last revised 2019. Protein/creatinin e ratio 97.8 0.0 - 180.0 mg/g CR [facility] ([place]) Urine 12/02/2024 10:3 5 AM VASCULAR RADIOLOGIST 12/02/2024 12:02 PM VASCULAR RADIOLOGIST Felix Kaiser MD LAB URINE ORDERABLES Final R [facility] Performing Organization Address [facility] de Phone Number [facility] ([place]) [address] [place] [address] * Dexa Axial Skeleton Bone Density 1 or 2 Site (12/13/2020 10:06 AM VASCULAR RADIOLOGIST) Anatomical Region Laterality Modality Body N/A Other 12/13/2020 10:1 2 AM VASCULAR RADIOLOGIST Impressions 12/13/2020 10:18 AM VASCULAR RADIOLOGIST According to the World Health Organization criteria, [...] Akash Leyva M.D. Narrative 12/13/2020 10:18 AM VASCULAR RADIOLOGIST COMPLETION DATE: 12/13/2020 9:30 AM ORDERING HEALTHCARE PROVIDER: BLAZE FLORES STUDY DESCRIPTION: DEXA AXIAL SKELETON BONE DENSITY 1 OR MORE SITES CLINICAL INDICATIONS: Screening for osteoporosis. Parietal hip fracture, history of rheumatoid arthritis, no regular weightbearing exercise, drinks caffeinated beverages. Reported use of vitamin D. COMPARISON: None available TECHNIQUE: Dual x-ray absorptiometry (DEXA) was performed using Defend Your Head system. GENERAL GUIDELINES: According to WHO guidelines, [...] 12/13/2020 9:30 AM ORDERING HEALTHCARE PROVIDER: BLAZE CALDERON DESCRIPTION: DEXA AXIAL SKELETON BONE DENSITY 1 OR MORE SITES CLINICAL INDICATIONS: Screening for osteoporosis. Parietal hip fracture, history of rheumatoid arthritis, no regular weightbearing exercise, drinks caffeinated beverages. Reported use of vitamin D. COMPARISON: None available TECHNIQUE: Dual x-ray absorptiometry (DEXA) was performed using Defend Your Head system. GENERAL GUIDELINES: According to WHO guidelines, [...] Most Recently Relevant to Health Maintenance Insurance [place] [address] UHC MEDICARE ADVANTAGE [facility] MEDICARE ADVANTAGE Care Teams Band Lining Bander Relationship Specialty Start Date End Date Blaze Flores NP [address] [place] [address] PCP - General Emergency Medicine 11/03/24
--- OUTSIDE RECORDS SUMMARY | 2025-02-21 13:48 | XMS_ITS | Encounter Summary ---
Author Organization [facility] Address [address] [place] [address] Phone Care Team Providers Care Manager Steel Name Role Phone JanesIsaijose JEAN-BAPTISTE Primary Care Provider Sandra Pressley APRN, GOLF TOURNAMENT CONSULTANT Primary Care P rovider Felix Kaiser MD Unavailable [phone] Kan Billings MD Unavailable [phone] Reason for Visit * Reason Comments Medication Refill Encounter Details Date Type Department Care Team (Late st Contact Info) Description 12/10/2023 Refill [facility] - Primary Care - [place] [address] [place] [address] Sandra Pressley APRN, GOLF TOURNAMENT CONSULTANT [address] [place] [address] Medication Refill Social History Tobacco Use Types [...] CDT Gender Identity Female 08/28/2023 1:03 PM CHUCKING MACHINE SET UP OPERATOR Sexual Orientation Straight 08/28/2023 1: 03 PM CHUCKING MACHINE SET UP OPERATOR documented as of this encounter Plan of Treatment Not on file documented as of this encounter Visit Diagnoses Diagnosis Hyperlipidemia, unspecified hyperlipidemia type documented in this encounter Additional Health Concerns Assessment Noted Time PHQ-9 Depression Total Score: 0 11/17/19 10:49 AM CHUCKING MACHINE SET UP OPERATOR documented as of this encounter Care Teams Manager Steel Relationship Specialty Start Date End Date Hernandez Marrero PAC [address] [place] [address] PCP - General Physician Statement Clerks Supervisor 12/10/23 11/29/24 Sandra Pressley APRN, GOLF TOURNAMENT CONSULTANT [address] [place] [address] PCP - General Advanced Practice Nurse 11/30/24 Felix Kaiser MD [address] [facility] [address] [place] [address] Consulting Physician Nephrology 12/21/24 Kan Billings MD [address] [place] [address] [address] [place] [address] Consulting Physician Cardiovascular Disease - Cardiology 12/21/24 documented as of this encounter
--- OUTSIDE RECORDS SUMMARY | 2025-02-21 13:48 | XMS_ITS | Encounter Summary ---
Author Organization [facility] Address [address] [place] [address] Phone Care Team Providers Care Construction Assistant Name Role Phone Hernandez Marrero Primary Care Provider Sandra Pressley APRN, ASSOCIATE DIRECTOR Primary Care P rovider Felix Kaiser MD Unavailable [phone] Kan Billings MD Unavailable [phone] Reason for Visit * Reason Comments Medication Refill Encounter Details Date Type Department Care Team (Late st Contact Info) Description 12/10/2023 Refill [facility] Care - [place] [address] [place] [address] Val Mustafa MD [address] [place] [address] Medication Refill Social History Tobacco [...] CDT Gender Identity Female 08/28/2023 1:03 PM CITY PLANNER Sexual Orientation Straight 08/28/2023 1: 03 PM CITY PLANNER documented as of this encounter Plan of Treatment Not on file documented as of this encounter Visit Diagnoses Not on filedocumented in this encounter Additional Health Concerns Assessment Noted Time PHQ-9 Depression Total Score: 0 11/17/19 10:49 AM CITY PLANNER documented as of this encounter Care Teams Construction Assistant Relationship Specialty Start Date End Date Hernandez Marrero PAC [address] [place] [address] PCP - General Physician Farm Agent 12/10/23 11/29/24 Sandra Pressley APRN, ASSOCIATE DIRECTOR [address] [place] [address] PCP - General Advanced Practice Nurse 11/30/24 Felix Kaiser MD [address] [facility] [address] [place] [address] Consulting Physician Nephrology 12/21/24 Kan Billings MD [address] [place] [address] [place] [address] Consulting Physician Cardiovascular Disease - Cardiology 12/21/24 documented as of this encounter
--- OUTSIDE RECORDS SUMMARY | 2025-02-21 13:48 | XMS_ITS | Encounter Summary ---
Author Organization [facility] Address [address] [place] [address] Phone Care Team Providers Care Ssn/Ssbn Assistant Navigator Name Role Phone Sandra Salas MD Primary Care Provider + [phone] Val Mustafa MD Primary Care Provider + [phone] Hernandez Marrero PAC Primary Care Provider + [phone] Sandra Pressley APRN, TOOL CHASER Primary Care P rovider Felix Kaiser MD Unavailable [phone] Kan Billings MD Unavailable [phone] Reason for Visit * Reason Comments Medication Refill Encounter Details Date Type Department Care Team (Late st Contact Info) Description 09/14/2020 Refill [facility] - Primary Care - [place] [address] [place] [address] Sandra Salas MD [address] [place] [address] Medication Refill Social History Tobacco Use Types Packs/Day Years Used Date Smoking Tobacco: Never Smokeless Tobacco: Never Alcohol Use Standard Drinks/Week Comments Yes 0 (1 standard drink = 0.6 oz pur e alcohol) occassionally glass of wine PHQ-2 Answer Date Recorded PHQ-2 Score 0 11/02/2019 Comments No Sex and Gender Information Value Date Recorded Sex Assigned at Not on file Legal Sex Female 8:49 PM CDT Gender Identity Female 08/28/2023 1:03 PM PRODUCTION WELDING SUPERVISOR Sexual Orientation Straight 08/28/2023 1: 03 PM PRODUCTION WELDING SUPERVISOR documented as of this encounter Miscellaneous Notes * Telephone Encounter - Flavia Ba[facility]uelos, [facility] - 09/14/2020 7:53 AM CST Medication failed the protocol, provider to review and approve the medication order if appropriate. Requested Prescriptions Pending Prescriptions Disp Refills LORazepam (ATIVAN) 0.5 MG Tablet [Pharmacy Med Name: LORAZEPAM 0.5MG TABLETS] 30 Tab Sig: TAKE 1 TABLET BY MOUTH DAILY NEEDED FOR ANXIETY Not Delegated - Anesthesia: Anesthetics & Sedatives Failed - 09/14/2020 12:16 AM Failed - This refill cannot be delegated Passed - Valid encounter within last 6 months Past Office Visits Recent Outpatient Visits 3 months ago Essential hypertension [facility] Sandra Salas MD 10 months ago Essential hypertension [facility] Sandra Multani MD 1 year ago [facility] 2 years ago Acute sinusitis, recurrence not specified, unspecified location [facility] Sandra Bautista MD 2 years ago Essential hypertension [facility] Sandra Bautista MD Upcoming Appointments Future Appointments In 2 months [facility] In 2 months Sandra Salas MD [facility] DIRECTOR OF CASINO - Recent and Past Visits Recent Visits Date Type Provider Dept 05/18/20 Office Visit Sandra Salas MD [facility] [address] 11/02/19 Office Visit Sandra Salas MD [facility] Showing recent visits within past 460 days with a meds authorizing provider and meeting all other requirements Future Appointments Date Type Provider Dept 11/20/20 Appointment Sandra Salas MD [facility] Showing future appointments within next 90 days with a meds authorizing provider and meeting all other requirements UCTION WELDING SUPERVISOR documented in this encounter Plan of Treatment Not on file documented as of this encounter Visit Diagnoses Diagnosis Anxiety Anxiety state, unspecified documented in this encounter Additional Health Concerns Infection Onset Date Last Indicated Resolved Time COVID - 19 10/04/2020 10/04/2020 10/06/2020 12:4 5 PM PRODUCTION WELDING SUPERVISOR COVID - 19 11/17/2023 11/17/2023 11/17/2023 11:3 3 AM PRODUCTION WELDING SUPERVISOR COVID - 19 11/17/2023 11/17/2023 11/17/2023 11:3 8 AM PRODUCTION WELDING SUPERVISOR COVID - 19 11/17/2023 11/17/2023 11/17/2023 11:5 1 AM PRODUCTION WELDING SUPERVISOR COVID - 19 Confirmed 11/17/2023 11/17/2023 03// 024 12:16 AM PRODUCTION WELDING SUPERVISOR Assessment Noted Time PHQ-9 Depression Total Score: 0 11/02/19 20 1:00 PM PRODUCTION WELDING SUPERVISOR documented as of this encounter Care Teams Ssn/Ssbn Assistant Navigator Relationship Specialty Start Date End Date Sandra Salas MD PCP - General Family Medicine 09/16/15 01/19/23 Val Mustafa MD [address] [place] [id number] PCP - General Family Medicine 01/24/23 12/09/23 Hernandez Marrero, PAC [address] [place] [address] PCP - General Physician Voicer 12/10/23 11/29/24 Sandra Pressley APRN, TOOL CHASER [address] [place] [address] PCP - General Advanced Practice Nurse 11/30/24 Felix Kaiser MD [address] [facility] [address] [place] [address] Consulting Physician Nephrology 12/21/24 Kan Billings MD [address] [place] [address] [address] [place] [address] Consulting Physician Cardiovascular Disease - Cardiology 12/21/24 documented as of this encounter
--- OUTSIDE RECORDS SUMMARY | 2025-02-21 13:48 | XMS_ITS | Encounter Summary ---
Author Organization [facility] Address [address] [place] [address] Phone Care Team Providers Care Offset Second Press Operator Name Role Phone Sandra Salas MD Primary Care Provider + [phone] Val Mustafa MD Primary Care Provider + [phone] Hernandez Marrero PAC Primary Care Provider + [phone] Sandra Pressley APRN, DIRECTOR OF MARKET RESEARCH Primary Care P rovider Felix Kaiser MD Unavailable [phone] Kan Billings MD Unavailable [phone] Reason for Visit * Reason Comments Medication Refill Encounter Details Date Type Department Care Team (Late st Contact Info) Description 11/12/2021 Refill [facility] - Primary Care - [place] [address] [place] [address] Sandra Salas MD [address] [place] [address] Medication Refill Social History Tobacco [...] CDT Gender Identity Female 08/28/2023 1:03 PM BINDER TECHNICIAN Sexual Orientation Straight 08/28/2023 1: 03 PM BINDER TECHNICIAN documented as of this encounter Miscellaneous Notes * Telephone Encounter - Noemí Roper RN - 11/12/2021 1:01 PM BINDER TECHNICIAN Refill requested too soon. ER TECHNICIAN documented in this encounter Plan of Treatment Not on file documented as of this encounter Visit Diagnoses Diagnosis Essential hypertension Unspecified essential hypertension Hyperlipidemia, unspecified hyperlipidemia type documented in this encounter Additional Health Concerns Infection Onset Date Last Indicated Resolved Time COVID - 19 11/17/2023 11/17/2023 11/17/2023 11:3 3 AM BINDER TECHNICIAN COVID - 19 11/17/2023 11/17/2023 11/17/2023 11:3 8 AM BINDER TECHNICIAN COVID - 19 11/17/2023 11/17/2023 11/17/2023 11:5 1 AM BINDER TECHNICIAN COVID - 19 Confirmed 11/17/2023 11/17/202312/06/ 024 12:16 AM BINDER TECHNICIAN Assessment Noted Time PHQ-9 Depression Total Score: 0 11/02/19 20 1:00 PM BINDER TECHNICIAN documented as of this encounter Care Teams Offset Second Press Operator Relationship Specialty Start Date End Date Sandra Salas MD PCP - General Family Medicine 09/16/15 01/19/23 Val Mustafa MD [address] [place] [address] PCP - General Family Medicine 01/24/23 12/09/23 Hernandez Marrero, PAC [address] [place] [address] PCP - General Physician Law Firm Receptionist 12/10/23 11/29/24 Sandra Pressley APRN, DIRECTOR OF MARKET RESEARCH [address] [place] [address] PCP - General Advanced Practice Nurse 11/30/24 Felix Kaiser MD [address] [facility] [address] [place] [address] Consulting Physician Nephrology 12/21/24 Kan Billings MD [address] [facility] [place] [address] Consulting Physician Cardiovascular Disease - Cardiology 12/21/24 documented as of this encounter
--- NOTE | 2025-02-21 13:50 | ECG_ITS ---
Test Date: 2025-02-21 14:01:41 Measurements Intervals Prentiss Rate: 70 P: 31 AR: 199 QRS: -21 QRSD: 126 T: -3 QT: 408 QTc: 442 Interpretive Statements SINUS RHYTHM BORDERLINE LEFT AXIS DEVIATION [QRS AXIS < -20] RIGHT BUNDLE BRANCH BLOCK [120+ ms QRS DURATION, UPRIGHT V1, 40+ ms S IN I/aVL/V4/V5/V6] No previous ECG available for comparison Electronically Signed On 02-22-2025 13:23:14 CDT by Errol Lr M.D.
== END 2025-02-21 13:39 | disposition home or self-care (01) ==
PROVIDERS: PCP Nurse Practitioner; Visit Provider Orthopaedic Surgery
DX: M19.011 Primary osteoarthritis, right shoulder (principal); I10 Essential (primary) hypertension; R94.31 Abnormal electrocardiogram [ECG] [EKG]
CPT/HCPCS: 73200; 93005

== ENCOUNTER 2025-05-25 10:06 | Outpatient (CLI) | payer MEDICARE, SELFPAY ==
--- OUTSIDE RECORDS SUMMARY | 2025-05-25 10:49 | XMS_ITS | Encounter Summary ---
Author Organization [facility] Address [address] [place] [address] Phone Care Team Providers Care Sewer Pipe Layer Name Role Phone Sandra Salas MD Primary Care Provider + [phone] Val Mustafa MD Primary Care Provider + [phone] Hernandez Marrero PAC Primary Care Provider + [phone] Sandra Pressley APRN, SKEIN YARN DYER HELPER Primary Care P rovider Felix Kaiser MD Unavailable [phone] Kan Billings MD Unavailable [phone] Reason for Visit * Reason Comments Medication Refill Encounter Details Date Type Department Care Team (Late st Contact Info) Description 09/13/2021 Refill [facility] - Primary Care - [place] [address] [place] [address] Sandra Salas MD [address] [place] [address] Medication Refill Social History Tobacco [...] CDT Gender Identity Female 08/28/2023 1:03 PM SCREENING NURSE Sexual Orientation Straight 08/28/2023 1: 03 PM SCREENING NURSE COVID-19 Exposure Response Date Recorded In the last month, have you been in contact with someone who was confirmed or suspected to have Coronavirus / COVID-19? No / Unsure 09/12/2021 11:02 AM SCREENING NURSE documented as of this encounter Miscellaneous Notes * Telephone Encounter - Elena Putnam RN - 09/13/2021 11:37 AM CST lisinopril-hydroCHLOROthiazide (PRINZIDE, ZESTORETIC) 20-25 MG Tablet 90 Tablet 1 06/14/2021 ENING NURSE documented in this encounter Plan of Treatment Not on file documented as of this encounter Visit Diagnoses Not on filedocumented in this encounter Additional Health Concerns Infection Onset Date Last Indicated Resolved Time COVID - 19 11/17/2023 11/17/2023 11/17/2023 11:3 3 AM SCREENING NURSE COVID - 19 11/17/2023 11/17/2023 11/17/2023 11:3 8 AM SCREENING NURSE COVID - 19 11/17/2023 11/17/2023 11/17/2023 11:5 1 AM SCREENING NURSE COVID - 19 Confirmed 11/17/2023 11/17/2023 03/2 024 12:16 AM SCREENING NURSE Assessment Noted Time PHQ-9 Depression Total Score: 0 11/02/19 20 1:00 PM SCREENING NURSE documented as of this encounter Care Teams Sewer Pipe Layer Relationship Specialty Start Date End Date Sandra Salas MD PCP - General Family Medicine 09/16/15 01/19/23 Val Mustafa MD [address] [place] [address] PCP - General Family Medicine 01/24/23 12/09/23 Hernandez Marrero, PAC [address] [place] [address] PCP - General Physician Mask Design Engineer 12/10/23 11/29/24 Sandra Pressley APRN, SKEIN YARN DYER HELPER [address] [place] [address] PCP - General Advanced Practice Nurse 11/30/24 Felix Kaiser MD [address] [facility] [address] [place] [address] Consulting Physician Nephrology 12/21/24 Kan Billings MD [address] [place] [address] [place] [address] Consulting Physician Cardiovascular Disease - Cardiology 12/21/24 documented as of this encounter
--- OUTSIDE RECORDS SUMMARY | 2025-05-25 10:49 | XMS_ITS | Encounter Summary ---
Author Organization [facility] Address [address] [place] [address] Phone Care Team Providers Care Distillery Supervisor Name Role Phone Hernandez Marrero Primary Care Provider Sandra Pressley APRN, FAMILY SERVICES SPECIALIST Primary Care P rovider Felix Kaiser MD Unavailable [phone] Kan Billings MD Unavailable [phone] Reason for Visit * Reason Comments Medication Refill Encounter Details Date Type Department Care Team (Late st Contact Info) Description 02/03/2024 Refill [facility] - Primary Care - [place] [address] [place] [address] Val Mustafa MD [address] [place] [address] Medication Refill Social History Tobacco [...] CDT Gender Identity Female 08/28/2023 1:03 PM HAUL DRIVER Sexual Orientation Straight 08/28/2023 1: 03 PM HAUL DRIVER documented as of this encounter Miscellaneous Notes * Telephone Encounter - Elena Putnam RN - 02/04/2024 9:05 AM CDT Medication(s) refilled and signed per [facility] Chronic Medication Refill Standing Order for Pediatricand Adult Patients. Requested Prescriptions Pending Prescriptions Disp Refills metoprolol Succinate (TOPROL-XL) 100 MG TABLET SR 24 HR [Pharmacy Med Name: METOPROLOL ER [id number] [id number]] 90 Tablet 1 Sig: TAKE 1 [...] Dept 11/17/23 Office Visit Hernandez Marrero PAC [facility] 09/08/23 Office Visit Val Mustafa MD [facility] Showing recent visits within past [...] Depression Total Score: 0 11/17/19 10:49 AM HAUL DRIVER documented as of this encounter Care Teams Distillery Supervisor Relationship Specialty Start Date End Date Hernandez Marrero, PAC [address] [place] [id number] PCP - General Physician Information Assistant 12/10/23 11/29/24 Sandra Pressley MERCHANT SEAMAN, FAMILY SERVICES SPECIALIST [address] [place] [address] PCP - General Advanced Practice Nurse 11/30/24 Felix Kaiser MD [address] [place] [address] Consulting Physician Nephrology 12/21/24 Kan Billings MD [address] [place] [address] [address] Consulting Physician Cardiovascular Disease - Cardiology 12/21/24 documented as of this encounter
--- OUTSIDE RECORDS SUMMARY | 2025-05-25 10:49 | XMS_ITS | Encounter Summary ---
Author Organization [facility] Address [address] [place] [address] Phone Care Team Providers Care Hotel Maintenance Engineer Name Role Phone Hernandez Marrero Primary Care Provider [phone] Sandra Pressley APRN, SENIOR ACCOUNTS PAYABLE SPECIALIST Primary Care P rovider Felix Kaiser MD Unavailable [phone] Kan Billings MD Unavailable Reason for Visit * Reason Comments Medication Refill Encounter Details Date Type Department Care Team (Late st Contact Info) Description 12/10/2023 Refill [facility] - Primary Care - [place] [address] [place] [address] Val Mustafa MD [address] [place] [address] Medication Refill Social History Tobacco [...] CDT Gender Identity Female 08/28/2023 1:03 PM PARKING LOT ATTENDANT AND CASHIER Sexual Orientation Straight 08/28/2023 1: 03 PM PARKING LOT ATTENDANT AND CASHIER documented as of this encounter Plan of Treatment Not on file documented as of this encounter Visit Diagnoses Not on filedocumented in this encounter Additional Health Concerns Assessment Noted Time PHQ-9 Depression Total Score: 0 11/17/19 10:49 AM PARKING LOT ATTENDANT AND CASHIER documented as of this encounter Care Teams Hotel Maintenance Engineer Relationship Specialty Start Date End Date Hernandez Marrero, PAC [address] [place] [address] PCP - General Physician Casing In Line Feeder 12/10/23 11/29/24 Sandra Pressley APRN, SENIOR ACCOUNTS PAYABLE SPECIALIST [address] [place] [address] PCP - General Advanced Practice Nurse 11/30/24 Felix Kaiser MD [address] [facility] [address] [place] [address] Consulting Physician Nephrology 12/21/24 Kan Billings MD [address] [place] [address] DR LAMB [address] [place] [address] Consulting Physician Cardiovascular Disease - Cardiology 12/21/24 documented as of this encounter
--- OUTSIDE RECORDS SUMMARY | 2025-05-25 10:49 | XMS_ITS | Encounter Summary ---
Author Organization [facility] Address [address] [place] [address] Phone Care Team Providers Care Construction Director Name Role Phone Sandra Salas MD Primary Care Provider + [phone] Val Mustafa MD Primary Care Provider + [phone] Hernandez Marrero PAC Primary Care Provider + [phone] Sandra Pressley APRN, LEAN PROCESS DEPLOYMENT CONSULTANT Primary Care P rovider Felix Kaiser MD Unavailable [phone] Kan Billings MD Unavailable [phone] Reason for Visit * Reason Comments Medication Refill Encounter Details Date Type Department Care Team (Late st Contact Info) Description 11/13/2021 Refill [facility] - Primary Care - [place] [address] [place] [address] Sandra Salas MD [address] [place] [address] Medication Refill Social History Tobacco [...] CDT Gender Identity Female 08/28/2023 1:03 PM DISPLAY CARVER Sexual Orientation Straight 08/28/2023 1: 03 PM DISPLAY CARVER documented as of this encounter Miscellaneous Notes [...] Provider Dept 09/12/21 Office Visit Sandra Pressley, PHOTOGRAPHY PROFESSOR, LEAN PROCESS DEPLOYMENT CONSULTANT [facility] 06/04/21 Office Visit Sandra Salas MD [facility] 11/28/20 Office Visit Sandra Pressley APRN, LEAN PROCESS DEPLOYMENT CONSULTANT [facility] Showing recent visits within past 365 days and meeting all other requirements Future Appointments Date Type Provider Dept 12/04/21 Appointment David [facility] 12/11/21 Appointment Sandra Salas MD [facility] Showing future appointments within next 90 days and meeting all other requirements Passed - GFR on record in past 12 months GFR, EST. NONAFRICAN Date Value Ref Range Status 05/28/2021 40 (L) >=60 Final LAY CARVER documented in this encounter Plan of Treatment Not on file documented as of this encounter Visit Diagnoses Not on filedocumented in this encounter Additional Health Concerns Infection Onset Date Last Indicated Resolved Time COVID - 19 11/17/2023 11/17/2023 11/17/2023 11:3 3 AM DISPLAY CARVER COVID - 19 11/17/2023 11/17/2023 11/17/2023 11:3 8 AM DISPLAY CARVER COVID - 19 11/17/2023 11/17/2023 11/17/2023 11:5 1 AM DISPLAY CARVER COVID - 19 Confirmed 11/17/2023 11/17/2023 024 12:16 AM DISPLAY CARVER Assessment Noted Time PHQ-9 Depression Total Score: 0 11/02/19 20 1:00 PM DISPLAY CARVER documented as of this encounter Care Teams Construction Director Relationship Specialty Start Date End Date Sandra Salas MD PCP - General Family Medicine 09/16/15 01/19/23 Val Mustafa MD [address] [place] [address] PCP - General Family Medicine 01/24/23 12/09/23 Hernandez Marrero PAC [address] [place] [address] PCP - General Physician Principal Military Analyst 12/10/23 11/29/24 Sandra Pressley APRN, LEAN PROCESS DEPLOYMENT CONSULTANT [address] [place] [address] PCP - General Advanced Practice Nurse 11/30/24 Felix Kaiser MD [address] [facility] [address] [place] [address] Consulting Physician Nephrology 12/21/24 Kan Billings MD [address] [place] [address] DR LAMB [address] [place] [address] Consulting Physician Cardiovascular Disease - Cardiology 12/21/24 documented as of this encounter
--- OUTSIDE RECORDS SUMMARY | 2025-05-25 10:49 | XMS_ITS | Encounter Summary ---
Author Organization [facility] Address [address] [place] [address] Phone Care Team Providers Care Sas Statistical Programmer Name Role Phone Sandra Salas MD Primary Care Provider + [phone] Val Mustafa MD Primary Care Provider + [phone] Hernandez Marrero PAC Primary Care Provider + [phone] Sandra Pressley APRN, MEDICAL EQUIPMENT SALES Primary Care P rovider Felix Kaiser MD Unavailable [phone] Kan Billings MD Unavailable [phone] Reason for Visit * Reason Comments Medication Refill Encounter Details Date Type Department Care Team (Late st Contact Info) Description 06/11/2021 Refill [facility] - Primary Care - [place] [address] [place] [address] Sandra Salas MD [address] [place] [address] Medication Refill Social History Tobacco [...] CDT Gender Identity Female 08/28/2023 1:03 PM PROGRAM ARRANGER Sexual Orientation Straight 08/28/2023 1: 03 PM PROGRAM ARRANGER COVID-19 Exposure Response Date Recorded In the [...] 19 11/17/2023 11/17/2023 11/17/2023 11:3 3 AM PROGRAM ARRANGER COVID - 19 11/17/2023 11/17/2023 11/17/2023 11:3 8 AM PROGRAM ARRANGER COVID - 19 11/17/2023 11/17/2023 11/17/2023 11:5 1 AM PROGRAM ARRANGER COVID - 19 Confirmed 11/17/2023 11/17/2023 03/2 024 12:16 AM PROGRAM ARRANGER Assessment Noted Time PHQ-9 Depression Total Score: 0 11/02/19 20 1:00 PM PROGRAM ARRANGER documented as of this encounter Care Teams Sas Statistical Programmer Relationship Specialty Start Date End Date Sandra Salas MD PCP - General Family Medicine 09/16/15 01/19/23 Val Mustafa MD [address] [place] [address] PCP - General Family Medicine 01/24/23 12/09/23 Hernandez Marrero, PAC [address] [place] [address] PCP - General Physician Engineering Design Supervisor 12/10/23 11/29/24 Sandra Pressley APRN, MEDICAL EQUIPMENT SALES [address] [place] [address] PCP - General Advanced Practice Nurse 11/30/24 Felix Kaiser MD [address] [facility] [address] [place] [address] Consulting Physician Nephrology 12/21/24 Kan Billings MD [address] [place] [address] [place] [address] Consulting Physician Cardiovascular Disease - Cardiology 12/21/24 documented as of this encounter
--- OUTSIDE RECORDS SUMMARY | 2025-05-25 10:49 | XMS_ITS | Clinical Summary ---
Author Organization [facility] Address [address] [place] [address] Care Team Providers Care Reimbursement Spec Name Role Phone CamiloaldenBlaze brooks NP Primary [...] Medical Cyst off ovary Hx Other Medical 2007 Rectal mass-can cer Hx Other Medical DJD-carmita [...] on file Legal Sex Female 12:26 AM DIRECTOR OF GLOBAL TALENT Gender Identity Not on file Sexual Orientation [...] 8:36 AM CDT Height 160 cm (5' 3) 11/11/2024 3:23 PM DIRECTOR OF GLOBAL TALENT Body Mass Index 38.62 05/27/2024 8:36 AM CDT Plan of Treatment Health Maintenance Due Date Last Done Comments Depression Screening 1942 Fall Risk Assessment 1942 Hepatitis B Screening 1960 Well Visit 65+ 2007 Osteoporosis Screening-Bone Density Scan 12/13/2022 12/13/2020, 12/13/2020, 12/13/2020 Covid-19 Vaccine (4 - 2023-2 5 season) 2024 10/05/2021, 12/14/2020, 11/16/2020 Influenza Vaccine (#1) 2025 , 07/23/2022, 07/24/2021, Additional history exists DTaP/Tdap/Td Vaccine (3 - Td or Tdap) 09/16/2025 09/16/2015, 10/06/2012 Pneumococcal vaccine 65+ Completed 020, 08/20/2016, 08/06/2012, Additional history exists Zoster Vaccine Completed 02/27/2024, 10/24/2023 Procedures Procedure Name Priority Date/Time Associated Diagnosis Comments DEXA AXIAL SKELETON BONE DENSITY 1 OR MORE SITES Schedule Routine, Read Routine (OP Routine) 12/13/2020 10:06 AM DIRECTOR OF GLOBAL TALENT Encounter for screening for osteoporosis from Last 3 Months or Most Recently Relevant to Health Maintenance Results * Dexa Axial Skeleton Bone Density 1 or 2 Site (12/13/2020 10:06 AM DIRECTOR OF GLOBAL TALENT) Anatomical Region Laterality Modality Body N/A Other 12/13/2020 10:1 2 AM DIRECTOR OF GLOBAL TALENT Impressions 12/13/2020 10:18 AM DIRECTOR OF GLOBAL TALENT According to the World Health Organization criteria, [...] Akash Leyva M.D. Narrative 12/13/2020 10:18 AM DIRECTOR OF GLOBAL TALENT COMPLETION DATE: 12/13/2020 9:30 AM ORDERING HEALTHCARE PROVIDER: BLAZE FLORES STUDY DESCRIPTION: DEXA AXIAL SKELETON BONE DENSITY 1 OR MORE SITES CLINICAL INDICATIONS: Screening for osteoporosis. Parietal hip fracture, history of rheumatoid arthritis, no regular weightbearing exercise, drinks caffeinated beverages. Reported use of vitamin D. COMPARISON: None available TECHNIQUE: Dual x-ray absorptiometry (DEXA) was performed using Tropical [place] system. GENERAL GUIDELINES: According to WHO guidelines, [...] due to facet hypertrophy/spondylosis. LEFT FOREARM (MID 10/08): T score -1.3 Neither hip was assessed [...] Dual x-ray absorptiometry (DEXA) was performed using Tropical [place] system. GENERAL GUIDELINES: According to WHO guidelines, [...] due to facet hypertrophy/spondylosis. LEFT FOREARM (MID 3): T score -1.3 Neither hip was assessed [...] by: Akash Leyva M.D. Blaze Flores NP [employer] DXA PROCEDURES Fi nal Result from Last 3 Months or Most Recently Relevant to Health Maintenance Insurance [id number] MEDICARE ADVANTAGE MEDICARE ADVANTAGE MEDICARE ADVANTAGE Care Teams Reimbursement Spec Relationship Specialty Start Date End Date Blaze Flores NP [address] [place] [address] PCP - General Emergency Medicine 11/03/24
--- OUTSIDE RECORDS SUMMARY | 2025-05-25 10:49 | XMS_ITS | Encounter Summary ---
Author Organization [facility] Address [address] [place] [address] Phone Care Team Providers Care Marketing Instructor Name Role Phone JanesIsaijose JEAN-BAPTISTE Primary Care Provider [phone] Sandra Pressley APRN, VINICIO Primary Care P rovider Felix Kaiser MD Unavailable [phone] Kan Billings MD Unavailable [phone] Reason for Visit * Reason Comments Medication Refill Encounter Details Date Type Department Care Team (Late st Contact Info) Description 12/10/2023 Refill [facility] - Primary Care - [place] [address] [place] [address] Sandra Pressley APRN, SEWER MAINTENANCE SUPERVISOR [address] [place] [address] Medication Refill Social History Tobacco Use Types [...] Gender Identity Female 08/28/2023 1:03 PM CITY ALDERMAN Sexual Orientation Straight 08/28/2023 1: 03 PM CITY ALDERMAN documented as of this encounter Plan of Treatment Not on file documented as of this encounter Visit Diagnoses Diagnosis Hyperlipidemia, unspecified hyperlipidemia type documented in this encounter Additional Health Concerns Assessment Noted Time PHQ-9 Depression Total Score: 0 11/17/19 10:49 AM CITY ALDERMAN documented as of this encounter Care Teams Marketing Instructor Relationship Specialty Start Date End Date Hernandez Marrero PAC [address] [place] [address] PCP - General Physician Talent Acquisition Coordinator 12/10/23 11/29/24 Sandra Pressley APRN, SEWER MAINTENANCE SUPERVISOR [address] [place] [address] PCP - General Advanced Practice Nurse 11/30/24 Felix Kaiser MD [address] [facility] [address] [place] [address] Consulting Physician Nephrology 12/21/24 Kan Billings MD [address] [place] [address] DR LAMB [address] [place] [address] Consulting Physician Cardiovascular Disease - Cardiology 12/21/24 documented as of this encounter
--- OUTSIDE RECORDS SUMMARY | 2025-05-25 10:49 | XMS_ITS | Encounter Summary ---
Author Organization [facility] Address [address] [place] [address] Phone Care Team Providers Care Sales Development Representative Name Role Phone Sandra Salas MD Primary Care Provider + [phone] Val Mustafa MD Primary Care Provider + [phone] Hernandez Marrero PAC Primary Care Provider + [phone] Sandra Pressley APRN, LADIES' HAT TRIMMER Primary Care P rovider Felix Kaiser MD Unavailable [phone] Kan Billings MD Unavailable [phone] Reason for Visit * Reason Comments Medication Refill Encounter Details Date Type Department Care Team (Late st Contact Info) Description 06/13/2021 Refill [facility] - Primary Care - [place] [address] [place] [address] Sandra Salas MD [address] [place] [address] Medication Refill Social History Tobacco [...] CDT Gender Identity Female 08/28/2023 1:03 PM MANAGER TRUCK Sexual Orientation Straight 08/28/2023 1: 03 PM MANAGER TRUCK COVID-19 Exposure Response Date Recorded In the [...] Dept 06/04/21 Office Visit Sandra Salas MD [facility] [address] 11/28/20 Office Visit Sandra Pressley JET DYEING MACHINE OPERATOR, LADIES' HAT TRIMMER [facility] Showing recent visits within past 365 days [...] 19 11/17/2023 11/17/2023 11/17/2023 11:3 3 AM MANAGER TRUCK COVID - 19 11/17/2023 11/17/2023 11/17/2023 11:3 8 AM MANAGER TRUCK COVID - 19 11/17/2023 11/17/2023 11/17/2023 11:5 1 AM MANAGER TRUCK COVID - 19 Confirmed 11/17/2023 11/17/2023 03// 024 12:16 AM MANAGER TRUCK Assessment Noted Time PHQ-9 Depression Total Score: 0 11/02/19 20 1:00 PM MANAGER TRUCK documented as of this encounter Care Teams Sales Development Representative Relationship Specialty Start Date End Date Sandra Salas MD PCP - General Family Medicine 09/16/15 01/19/23 Val Mustafa MD [address] [place] [address] PCP - General Family Medicine 01/24/23 12/09/23 Hernandez Marrero, PAC [address] [place] [address] PCP - General Physician Mems Integration Engineer 12/10/23 11/29/24 Sandra Pressley APRN, LADIES' HAT TRIMMER [address] [place] [address] PCP - General Advanced Practice Nurse 11/30/24 Felix Kaiser MD [address] [facility] [address] [place] [address] Consulting Physician Nephrology 12/21/24 Kan Billings MD 2 [facility] [place] [address] Consulting Physician Cardiovascular Disease - Cardiology 12/21/24 documented as of this encounter
--- OUTSIDE RECORDS SUMMARY | 2025-05-25 10:49 | XMS_ITS | Encounter Summary ---
Author Organization [facility] Address [address] [place] [address] Phone Care Team Providers Care Prototype Sewer Name Role Phone Sandra Salas MD Primary Care Provider + [phone] Val Mustafa MD Primary Care Provider + [phone] Hernandez Marrero PAC Primary Care Provider + [phone] Sandra Pressley APRN, COMPUTING SERVICES DIRECTOR Primary Care P rovider Felix Kaiser MD Unavailable [phone] Kan Billings MD Unavailable [phone] Reason for Visit * Reason Comments Medication Refill Encounter Details Date Type Department Care Team (Late st Contact Info) Description 11/12/[address] [facility] - Primary Care - [place] [address] [place] [address] Sandra Salas MD [address] [place] [address] Medication Refill Social History Tobacco [...] CDT Gender Identity Female 08/28/2023 1:03 PM JOY OPERATOR Sexual Orientation Straight 08/28/2023 1: 03 PM JOY OPERATOR documented as of this encounter Miscellaneous Notes * Telephone Encounter - Noemí Roper RN - 11/12/2021 1:01 PM JOY OPERATOR Refill requested too soon. OPERATOR documented in this encounter Plan of Treatment Not on file documented as of this encounter Visit Diagnoses Diagnosis Essential hypertension Unspecified essential hypertension Hyperlipidemia, unspecified hyperlipidemia type documented in this encounter Additional Health Concerns Infection Onset Date Last Indicated Resolved Time COVID - 19 11/17/2023 11/17/2023 11/17/2023 11:3 3 AM JOY OPERATOR COVID - 19 11/17/2023 11/17/2023 11/17/2023 11:3 8 AM JOY OPERATOR COVID - 19 11/17/2023 11/17/2023 11/17/2023 11:5 1 AM JOY OPERATOR COVID - 19 Confirmed 11/17/2023 11/17/202312/06/ 024 12:16 AM JOY OPERATOR Assessment Noted Time PHQ-9 Depression Total Score: 0 11/02/19 20 1:00 PM JOY OPERATOR documented as of this encounter Care Teams Prototype Sewer Relationship Specialty Start Date End Date Sandra Salas MD PCP - General Family Medicine 09/16/15 01/19/23 Val Mustafa MD [address] [place] [address] PCP - General Family Medicine 01/24/23 12/09/23 Hernandez Marrero, PAC [address] [place] [address] PCP - General Physician Oil Well Services Field Supervisor 12/10/23 11/29/24 Sandra Pressley APRN, COMPUTING SERVICES DIRECTOR [address] [place] [address] PCP - General Advanced Practice Nurse 11/30/24 Felix Kaiser MD [address] [facility] [address] [place] [address] Consulting Physician Nephrology 12/21/24 Kan Billings MD [address] [place] [address] [place] [address] Consulting Physician Cardiovascular Disease - Cardiology 12/21/24 documented as of this encounter
--- OUTSIDE RECORDS SUMMARY | 2025-05-25 10:50 | XMS_ITS | Encounter Summary ---
Author Organization [facility] Address [address] [place] [address] Phone Care Team Providers Care Slot Floorman Name Role Phone Sandra Salas MD Primary Care Provider + [phone] Val Mustafa MD Primary Care Provider + [phone] Hernandez Marrero PAC Primary Care Provider + [phone] Sandra Pressley APRN, TOOL POLISHER Primary Care P rovider Felix Kaiser MD Unavailable [phone] Kan Billings MD Unavailable [phone] Reason for Visit * Reason Comments Medication Refill Encounter Details Date Type Department Care Team (Late st Contact Info) Description 01/01/2022 Refill [facility] - Primary Care - [place] [address] [place] [address] Sandra Salas MD [address] [place] [address] Medication Refill Social History Tobacco [...] CDT Gender Identity Female 08/28/2023 1:03 PM MACHINE BRUSH MAKER Sexual Orientation Straight 08/28/2023 1: 03 PM MACHINE BRUSH MAKER documented as of this encounter Miscellaneous Notes [...] 09/12/21 Office Visit Sandra Pressley APRN, VINICIO [facility] [address] [facility] 06/04/21 Office Visit Sandra Salas MD [facility] [address] [facility] Showing recent visits within past 365 days and meeting all other requirements Future Appointments Date Type Provider Dept 01/09/22 Appointment David, [facility] [facility] 01/17/22 Appointment Sandra Salas MD [facility] [address] [facility] Showing future appointments within next 90 days and meeting all other requirements documented in this encounter Plan of Treatment Not on file documented as of this encounter Visit Diagnoses Diagnosis Anxiety Anxiety state, unspecified documented in this encounter Additional Health Concerns Infection Onset Date Last Indicated Resolved Time COVID - 19 11/17/2023 11/17/2023 11/17/2023 11:3 3 AM MACHINE BRUSH MAKER COVID - 19 11/17/2023 11/17/2023 11/17/2023 11:3 8 AM MACHINE BRUSH MAKER COVID - 19 11/17/2023 11/17/2023 11/17/2023 11:5 1 AM MACHINE BRUSH MAKER COVID - 19 Confirmed 11/17/2023 11/17/2023 024 12:16 AM MACHINE BRUSH MAKER Assessment Noted Time PHQ-9 Depression Total Score: 0 11/02/19 20 1:00 PM MACHINE BRUSH MAKER documented as of this encounter Care Teams Slot Floorman Relationship Specialty Start Date End Date Sandra Salas MD PCP - General Family Medicine 09/16/15 01/19/23 Val Mustafa MD [address] [place] [address] PCP - General Family Medicine 01/24/23 12/09/23 Hernandez Marrero, PAC [address] [place] [address] PCP - General Physician Apparel Machinery Instructor 12/10/23 11/29/24 Sandra Pressley, TEST BORING CREW CHIEF, TOOL POLISHER [address] [place] [address] PCP - General Advanced Practice Nurse 11/30/24 Felix Kaiser MD [address] [place] [address] Consulting Physician Nephrology 12/21/24 ManuelitoKan martino MD 2 [facility] [address] [address] Consulting Physician Cardiovascular Disease - Cardiology 12/21/24 documented as of this encounter
--- OUTSIDE RECORDS SUMMARY | 2025-05-25 10:50 | XMS_ITS | Encounter Summary ---
Author Organization [facility] Address [address] [place] [address] Phone Care Team Providers Care Landscape Account Manager Name Role Phone Sandra Salas MD Primary Care Provider + [phone] Val Mustafa MD Primary Care Provider + [phone] Hernandez Marrero PAC Primary Care Provider + [phone] Sandra Pressley APRN, CLOTHING TRADES WORKERS Primary Care P rovider Felix Kaiser MD Unavailable [phone] Kan Billings MD Unavailable [phone] Reason for Visit * Reason Comments Medication Refill Encounter Details Date Type Department Care Team (Late st Contact Info) Description 05/13/2021 Refill [facility] - Primary Care - [place] [address] [place] [address] Sandra Salas MD [address] [place] [address] Medication Refill Social History Tobacco [...] CDT Gender Identity Female 08/28/2023 1:03 PM SUPERVISOR SCRAP PREPARATION Sexual Orientation Straight 08/28/2023 1: 03 PM SUPERVISOR SCRAP PREPARATION documented as of this encounter Plan of Treatment Not on file documented as of this encounter Visit Diagnoses Diagnosis Essential hypertension Unspecified essential hypertension documented in this encounter Additional Health Concerns Infection Onset Date Last Indicated Resolved Time COVID - 19 11/17/2023 11/17/2023 11/17/2023 11:3 3 AM SUPERVISOR SCRAP PREPARATION COVID - 19 11/17/2023 11/17/2023 11/17/2023 11:3 8 AM SUPERVISOR SCRAP PREPARATION COVID - 19 11/17/2023 11/17/2023 11/17/2023 11:5 1 AM SUPERVISOR SCRAP PREPARATION COVID - 19 Confirmed 11/17/2023 11/17/2023 03 024 12:16 AM SUPERVISOR SCRAP PREPARATION Assessment Noted Time PHQ-9 Depression Total Score: 0 11/02/19 20 1:00 PM SUPERVISOR SCRAP PREPARATION documented as of this encounter Care Teams Landscape Account Manager Relationship Specialty Start Date End Date Sandra Salas MD PCP - General Family Medicine 09/16/15 01/19/23 Val Mustafa MD [address] [place] [address] PCP - General Family Medicine 01/24/23 12/09/23 Hernandez Marrero PAC [address] [place] [address] PCP - General Physician [employer] Barista 12/10/23 11/29/24 Sandra Pressley APRN, CLOTHING TRADES WORKERS [address] [place] [address] PCP - General Advanced Practice Nurse 11/30/24 Felix Kaiser MD [address] [facility] [address] [place] [address] Consulting Physician Nephrology 12/21/24 Kan Billings MD [address] [place] [address] [place] [address] Consulting Physician Cardiovascular Disease - Cardiology 12/21/24 documented as of this encounter
--- OUTSIDE RECORDS SUMMARY | 2025-05-25 10:50 | XMS_ITS | Encounter Summary ---
Author Organization [facility] Address [address] [place] [address] Phone Care Team Providers Care Personnel Manager Name Role Phone Sandra Salas MD Primary Care Provider + [phone] Val Mustafa MD Primary Care Provider + [phone] Hernandez Marrero PAC Primary Care Provider + [phone] Sandra Pressley APRN, BAG END SEWER Primary Care P rovider Felix Kaiser MD Unavailable [phone] Kan Billings MD Unavailable [phone] Reason for Visit * Reason Comments Medication Refill Encounter Details Date Type Department Care Team (Late st Contact Info) Description 05/18/2021 Refill [facility] - Primary Care - [place] [address] [place] [address] Sandra Salas MD [address] [place] [address] Medication Refill Social History Tobacco [...] CDT Gender Identity Female 08/28/2023 1:03 PM INDUSTRIAL MAINTENANCE MECHANIC Sexual Orientation Straight 08/28/2023 1: 03 PM INDUSTRIAL MAINTENANCE MECHANIC documented as of this encounter Miscellaneous Notes [...] 19 11/17/2023 11/17/2023 11/17/2023 11:3 3 AM INDUSTRIAL MAINTENANCE MECHANIC COVID - 19 11/17/2023 11/17/2023 11/17/2023 11:3 8 AM INDUSTRIAL MAINTENANCE MECHANIC COVID - 19 11/17/2023 11/17/2023 11/17/2023 11:5 1 AM INDUSTRIAL MAINTENANCE MECHANIC COVID - 19 Confirmed 11/17/2023 11/17/2023 024 12:16 AM INDUSTRIAL MAINTENANCE MECHANIC Assessment Noted Time PHQ-9 Depression Total Score: 0 11/02/19 20 1:00 PM INDUSTRIAL MAINTENANCE MECHANIC documented as of this encounter Care Teams Personnel Manager Relationship Specialty Start Date End Date Sandra Salas MD PCP - General Family Medicine 09/16/15 01/19/23 Val Mustafa MD [address] [place] [address] PCP - General Family Medicine 01/24/23 12/09/23 Hernandez Marrero, PAC [address] [place] [address] PCP - General Physician Chief Engineer Waterworks 12/10/23 11/29/24 Sandra Pressley APRN, BAG END SEWER [address] [place] [address] PCP - General Advanced Practice Nurse 11/30/24 Felix Kaiser MD [address] [facility] [address] [place] [address] Consulting Physician Nephrology 12/21/24 Kan Billings MD [address] [place] [address] [address] Consulting Physician Cardiovascular Disease - Cardiology 12/21/24 documented as of this encounter
--- OUTSIDE RECORDS SUMMARY | 2025-05-25 10:50 | XMS_ITS | Encounter Summary ---
Author Organization [facility] Address [address] [place] [address] Phone Care Team Providers Care Rn Hemodialysis Charge Name Role Phone Sandra Salas MD Primary Care Provider + [phone] Val Mustafa MD Primary Care Provider + [phone] Hernandez Marrero PAC Primary Care Provider + [phone] Sandra Pressley APRN, MANAGER OF PRODUCTION Primary Care P rovider Felix Kaiser MD Unavailable [phone] Kan Billings MD Unavailable [phone] Reason for Visit * Reason Comments Medication Refill Encounter Details Date Type Department Care Team (Late st Contact Info) Description 03/12/[address] [facility] - Primary Care - [place] [address] [place] [address] Sandra Salas MD [address] [place] [address] Medication Refill Social History Tobacco [...] CDT Gender Identity Female 08/28/2023 1:03 PM SALES REPRESENTATIVE UNIFORMS Sexual Orientation Straight 08/28/2023 1: 03 PM SALES REPRESENTATIVE UNIFORMS documented as of this encounter Miscellaneous Notes [...] 19 11/17/2023 11/17/2023 11/17/2023 11:3 3 AM SALES REPRESENTATIVE UNIFORMS COVID - 19 11/17/2023 11/17/2023 11/17/2023 11:3 8 AM SALES REPRESENTATIVE UNIFORMS COVID - 19 11/17/2023 11/17/2023 11/17/2023 11:5 1 AM SALES REPRESENTATIVE UNIFORMS COVID - 19 Confirmed 11/17/2023 11/17/2023 03//2 024 12:16 AM SALES REPRESENTATIVE UNIFORMS Assessment Noted Time PHQ-9 Depression Total Score: 0 11/02/19 20 1:00 PM SALES REPRESENTATIVE UNIFORMS documented as of this encounter Care Teams Rn Hemodialysis Charge Relationship Specialty Start Date End Date Sandra Salas MD PCP - General Family Medicine 09/16/15 01/19/23 Val Mustafa MD [address] [place] [address] PCP - General Family Medicine 01/24/23 12/09/23 Hernandez Marrero, PAC [address] [place] [address] PCP - General Physician Eyeglass Frames Inspector 12/10/23 11/29/24 Sandra Pressley, MARKETING PERFORMANCE ANALYST, MANAGER OF PRODUCTION [address] [place] [address] PCP - General Advanced Practice Nurse 11/30/24 Felix Kaiser MD [address] [facility] [address] [place] [address] Consulting Physician Nephrology 12/21/24 Kan Billings MD [address] [facility] [place] [address] Consulting Physician Cardiovascular Disease - Cardiology 12/21/24 documented as of this encounter
--- OUTSIDE RECORDS SUMMARY | 2025-05-25 10:50 | XMS_ITS | Encounter Summary ---
Author Organization [facility] Address [address] [place] [address] Phone Care Team Providers Care Jigger Artisan Name Role Phone Sandra Salas MD Primary Care Provider + [phone] Val Mustafa MD Primary Care Provider + [phone] Hernandez Marrero PAC Primary Care Provider + [phone] Sandra Pressley APRN, FAX MACHINE OPERATOR Primary Care P rovider Felix Kaiser MD Unavailable [phone] Kan Billings MD Unavailable [phone] Reason for Visit * Reason Comments Medication Refill Encounter Details Date Type Department Care Team (Late st Contact Info) Description 03/05/2022 Refill [facility] - Primary Care - [place] [address] [place] [address] Sandra Salas MD [address] [place] [address] Medication Refill Social History Tobacco [...] CDT Gender Identity Female 08/28/2023 1:03 PM PROGRESS DEVELOPER Sexual Orientation Straight 08/28/2023 1: 03 PM PROGRESS DEVELOPER documented as of this encounter Miscellaneous Notes [...] 19 11/17/2023 11/17/2023 11/17/2023 11:3 3 AM PROGRESS DEVELOPER COVID - 19 11/17/2023 11/17/2023 11/17/2023 11:3 8 AM PROGRESS DEVELOPER COVID - 19 11/17/2023 11/17/2023 11/17/2023 11:5 1 AM PROGRESS DEVELOPER COVID - 19 Confirmed 11/17/2023 11/17/2023 024 12:16 AM PROGRESS DEVELOPER Assessment Noted Time PHQ-9 Depression Total Score: 0 11/02/19 20 1:00 PM PROGRESS DEVELOPER documented as of this encounter Care Teams Jigger Artisan Relationship Specialty Start Date End Date Sandra Salas MD PCP - General Family Medicine 09/16/15 01/19/23 Val Mustafa MD [address] [place] [address] PCP - General Family Medicine 01/24/23 12/09/23 Hernandez Marrero PAC [address] [place] [address] PCP - General Physician Can Handler 12/10/23 11/29/24 Sandra Pressley, INSTRUCTION DEAN, FAX MACHINE OPERATOR [address] [place] [address] PCP - General Advanced Practice Nurse 11/30/24 Felix Kaiser MD [address] [facility] [address] [place] [address] Consulting Physician Nephrology 12/21/24 Kan Billings MD [address] [place] [address] [address] [place] [address] Consulting Physician Cardiovascular Disease - Cardiology 12/21/24 documented as of this encounter
--- OUTSIDE RECORDS SUMMARY | 2025-05-25 10:50 | XMS_ITS | Clinical Summary ---
Author Organization [facility] Address [address] [address] Phone Care Team Providers Care Fish Net Stringer Name Role Phone Sandra Pressley APRN, CENTRAL OFFICE REPAIRER Primary Care P romaricelder Felix Kaiser MD Unavailable Kan Billings MD Unavailable [phone] Allergies Active Allergy Reactions Criticality Noted Date [...] daily. Active lisinopril (PRINIVIL, ZESTRIL) 20 MG TabletIndications: Primary hypertension Take 1 Tablet by mouth every evening. 90 Tablet 1 Active albuterol 108 (90 Base) MCG/ACT Aerosol Solution take 1-2 Puffs by inhalation every 6 hours as needed for Wheezing. 8.5 g 3 3 Active LORazepam (ATIVAN) 0.5 MG TabletIndications: Anxiety Take 1 Tablet by mouth nightly as needed for Anxiety or Sleep. 30 Tablet 4 Active pravastatin (PRAVACHOL) 40 MG TabletIndications: Hyperlipidemia, unspecified hyperlipidemia type TAKE 1 TABLET BY MOUTH DAILY 90 Tablet 5 Active lisinopril-hydroCH LOROthiazide (PRINZIDE, ZESTORETIC) 20-25 MG Tablet TAKE 1 TABLET BY MOUTH DAILY 90 Tablet 5 Active metoprolol Succinate (TOPROL-XL) 100 MG TABLET SR 24 HRIndications:Esse ntial hypertension TAKE 1 TABLET BY MOUTH DAILY 90 Tablet 5 Active Active Problems Problem Noted Date Diagnosed [...] Encounters Date Type Department Care Team Description 04/24/2025 Refill [facility] - Primary Care - [place] [address] [place] [address] Hernandez Marrero, PAC Medication Refill from Last 3 Months Immunizations Immunization Administration [...] pur e alcohol) occassionally glass of wine [employer] Answer Date Recorded In the past 12 months has [employer], [employer], oil, or water [employer] threatened to shut off services in your home? No 11/30/2024 Social Connection and Isolation Panel Answer Date Recorded In a typical week, how many times do you talk on the phone with family, friends, or neighbors? More than three times a week 11/30/2024 How often do you get togethe r with friends or relatives? More than three times a week 11/30/2024 How often do you attend [facility] or zoroastrianism services? More than 4 times per year 11/30/2024 Do you belong to any clubs o r organizations such as mosque groups, unions, fraternal or athletic groups, or [...] Total Score - Questions 1-9 0 12/04 [facility] of Occupat ional [facility] - Occupational Stress Questionnaire Answer Date Recorded [...] any time in the past [facility], were you homeless or living in a halfway (including now)? No 11/30/2024 Education Answer Date Recorded What is the highest level of school you have completed or the highest degree you have received? Some college, no degree 11/18/2020 Comments No Sex and Gender Information Value Date Recorded Sex Assigned at Not on file Legal Sex Female 8:49 PM CDT Gender Identity Female 08/28/2023 1:03 PM DIRECTOR OF MEDICARE Sexual Orientation Straight 08/28/2023 1: 03 PM DIRECTOR OF MEDICARE Last Filed Vital Signs Vital Sign Reading [...] A M CDT Height 160 cm (5' 3) 12/21/2024 8:11 AM CDT Body Mass Index 36.77 12/21/2024 8:11 AM CDT Plan of Treatment Health Maintenance Due Date Last Done Comments Cologuard 1987 Immunochemical Fecal Occult Blood 1987 SARS-COV-2 Immunization ( season) 2024 10/05/2021, 12/14/2020, 11/16/2020 Influenza Immunization (#1) 06/06/2025/0 12/2024, 09/08/2023, 07/23/2022, Additional history exists Colonoscopy 06/21/2025 06/21/2015 Colorectal Cancer Screening 06/21/2025 [...] (Adult) Completed 10/24/2023 Zoster Immunization Completed 02/27/2024, 01/19/202 4 Hepatitis B Immunization Aged Out No longer [...] Procedure Name Priority Date/Time Associated Diagnosis Comments HEPATITIS C ANTIBODY Routine 09/08/2023 9:32 AM DIRECTOR OF MEDICARE Encounter for hepatitis C screening test for low risk patient PAIGE BONE DENSITOMETRY AXIAL SKELETON Routine 12/13/2020 Postmenopausal HM COLONOSCOPY Routine 06/21/2015 from Last 3 Months or Most Recently Relevant to Health Maintenance Results * HEPATITIS C ANTIBODY (09/08/2023 9:32 AM DIRECTOR OF MEDICARE) hepatitis C antibody 0.09 <1 S/CO [facility] ARCH [id number] B 09/08/2023 9:23 PM DIRECTOR [facility] MEDICARE [facility] Comment: Signal/Cutoff ratio < 0.79 is Nondetected Signal/Cutoff ratio 0.80-0.99 is Grayzone Signal/Cutoff ratio > 0.99 is Detected Supplemental assays are recommended if signal/cutoff ratio is >/=1.00. Signal/cutoff ratio result >/= 5.00 is 97% predictive of positivity for recombinant immunoblot assay (RIBA) and will be reported to the [place] Department of Public Health as required. Blood Venipuncture / Unknown 09/08/2023 9:32 AM DIRECTOR OF MEDICARE 09/08/2023 9:32 AM DIRECTOR OF MEDICARE us Val Mustafa MD CHEMISTRY ORDERABLES Final R esult [facility] [address] [place] [address], * [facility] BONE DENSITOMETRY AXIAL SKELETON (12/13/2020) Anatomical Region Laterality Modality BODY N/A Other us Sandra Pressley CONSTRUCTION CONSULTANT, CENTRAL OFFICE REPAIRER IMG DEXA ORDERA BLES Final Result * COLONOSCOPY (06/21/2015) Sandra Salas MD PROCEDURE/MINOR SURGICAL ORD ERABLES Final Result from Last 3 Months or Most Recently Relevant to Health Maintenance Insurance MEDICARE C [facility] Advance Directives Documents on File Type Date Recorded Patient Aviation Medicine Specialist Expl anation Advance Care Planning Discussion 11/26/2023 11:08 AM ACP Power of Mechanic General Operational Test for Health Care 11/26/2023 11:07 AM POA / HEALTH CARE Care Teams Fish Net Stringer Relationship Specialty Start Date End Date Sandra Pressley, CONSTRUCTION CONSULTANT, CENTRAL OFFICE REPAIRER [address] [place] [address] PCP - General Advanced Practice Nurse 11/30/24 Felix Kaiser MD [address], [address] [place] [address] Consulting Physician Nephrology 12/21/24 Kan Billings MD [address] [facility] [address] [place] [address] Consulting Physician Cardiovascular Disease - Cardiology 12/21/24
--- OUTSIDE RECORDS SUMMARY | 2025-05-25 10:50 | XMS_ITS | Encounter Summary ---
Author Organization [facility] Address [address] [place] [address] Phone Care Team Providers Care Drilling Field Operator Name Role Phone Sandra Salas MD Primary Care Provider + [phone] Val Mustafa MD Primary Care Provider + [phone] Hernandez Marrero PAC Primary Care Provider + [phone] Sandra Pressley APRN, DOUBLE SURFACE OPERATOR Primary Care P rovider Felix Kaiser MD Unavailable [phone] Kan Billings MD Unavailable [phone] Reason for Visit * Reason Comments Medication Refill Encounter Details Date Type Department Care Team (Late st Contact Info) Description 09/14/2020 Refill [facility] - [place] - [place] [address] [place] [address] Sandra Salas MD [address] [place] [address] Medication Refill Social History Tobacco [...] CDT Gender Identity Female 08/28/2023 1:03 PM CARDING MACHINE OPERATOR Sexual Orientation Straight 08/28/2023 1: 03 PM CARDING MACHINE OPERATOR documented as of this encounter Miscellaneous Notes * Telephone Encounter - Flavia Bañuelos, [facility] - 09/14/2020 7:53 AM CST Medication failed [...] Outpatient Visits 3 months ago Essential hypertension [facility] Sandra Salas MD 10 months ago Essential hypertension [facility] Sandra Multani MD 1 year ago [facility] Merr[facility] 2 years ago Acute sinusitis, recurrence not specified, unspecified location [facility] Sandra Bautista MD 2 years ago Essential hypertension [facility] Sandra Bautista MD Upcoming Appointments Future Appointments In 2 months [facility] In 2 months Sandra Salas MD [facility] CROZE CUTTER HELPER - Recent and Past Visits Recent Visits Date Type Provider Dept 05/18/20 Office Visit [facility] Sal[facility] MD [facility] [address] 11/02/19 Office Visit Sandra Salas MD [facility] Showing recent visits within past 460 days with a meds authorizing provider and meeting all other requirements Future Appointments Date Type Provider Dept 11/20/20 Appointment Sandra Salas MD [facility] Showing future appointments within next 90 days with a meds authorizing provider and meeting all other requirements ING MACHINE OPERATOR documented in this encounter Plan of Treatment Not on file documented as of this encounter Visit Diagnoses Diagnosis Anxiety Anxiety state, unspecified documented in this encounter Additional Health Concerns Infection Onset Date Last Indicated Resolved Time COVID - 19 10/04/2020 10/04/2020 10/06/2020 12:4 5 PM CARDING MACHINE OPERATOR COVID - 19 11/17/2023 11/17/2023 11/17/2023 11:3 3 AM CARDING MACHINE OPERATOR COVID - 19 11/17/2023 11/17/2023 11/17/2023 11:3 8 AM CARDING MACHINE OPERATOR COVID - 19 11/17/2023 11/17/2023 11/17/2023 11:5 1 AM CARDING MACHINE OPERATOR COVID - 19 Confirmed 11/17/2023 11/17/2023 03// 024 12:16 AM CARDING MACHINE OPERATOR Assessment Noted Time PHQ-9 Depression Total Score: 0 11/02/19 20 1:00 PM CARDING MACHINE OPERATOR documented as of this encounter Care Teams Drilling Field Operator Relationship Specialty Start Date End Date Sandra Salas MD PCP - General Family Medicine 09/16/15 01/19/23 Val Mustafa MD [address] [place] [place] [id number] PCP - General Family Medicine 01/24/23 12/09/23 Hernandez Marrero, PAC [address] [place] [address] PCP - General Physician Grout Worker 12/10/23 11/29/24 Sandra Pressley APRN, DOUBLE SURFACE OPERATOR [address] [place] [address] PCP - General Advanced Practice Nurse 11/30/24 Felix Kaiser MD [address] [facility] [address] [place] [address] Consulting Physician Nephrology 12/21/24 Kan Billings MD [address] [place] [address] [address] Consulting Physician Cardiovascular Disease - Cardiology 12/21/24 documented as of this encounter
--- OUTSIDE RECORDS SUMMARY | 2025-05-25 10:50 | XMS_ITS | Clinical Summary ---
Author Organization [facility] [employer] Address [address] [place] [address] Care Team Providers Care Geological Engineering Teacher Name Role Phone Unavailable Primary Care Provider Unavailabl e Source Comments [facility] [employer],non-owned Affiliates and Associated Physician Practices is amultiple site organization consisting of ambulatory clinics and hospital sitesin [place], [place], [place]. This disclosure is being madepursuant to the Care Everywhere program and may not contain all information available regarding this patient. Last updated [employer] Allergies Active Allergy Reactions Criticality Noted Date [...] on file Legal Sex Female 10:30 AM FLOOR ASSEMBLER Gender Identity Not on file Sexual Orientation Not on file Last Filed Vital Signs Vital Sign Reading Time Taken Comments Blood Pressure 150/86 09/19/2015 2:52 PM FLOOR ASSEMBLER Pulse 66 09/19/2015 2:52 PM FLOOR ASSEMBLER Temperature 37 C (98.6 F) 09/19/2015 2:22 PM FLOOR ASSEMBLER Respiratory Rate 18 09/19/2015 2:52 PM FLOOR ASSEMBLER Oxygen Saturation 100% 09/19/2015 2:53 PM FLOOR ASSEMBLER Inhaled Oxygen Concentration - - Weight 90.7 kg (200 lb) 09/19/2015 6:09 AM FLOOR ASSEMBLER Height 160 cm (5' 3) 09/18/2015 3:29 PM FLOOR ASSEMBLER Body Mass Index 35.43 09/18/2015 3:29 PM FLOOR ASSEMBLER Plan of Treatment Health Maintenance Due Date [...] season) 2024 DEPRESSION SCREENING 10/06/2024 INFLUENZA VACCINE (#1) 2025 HEPATITIS B VACCINE Aged Out No [...] this topic Medical Devices Implanted Type Area Enterprise Resource Planning Consultant Device Identifier Shelf Expiration Date Model / Serial / Lot Plate Vdr2 Proxm W L Narr Implanted:Qty: 1 on 09/19/2015 by Elias Evans MD at [facility] Right: Radius Acumed 70-0359 / / Peg Smooth Kenan 2.3 X 20mm Implanted:Qty: 1 on 09/19/2015 by Elias Evans MD at [facility] Right: Radius [employer] CO-S2320 / / Scrw Kenan Thrd 2.3 X 18mm Implanted:Qty: 1 on 09/19/2015 by Elias Evans MD at [facility] Right: Radius [employer] CO-T2318 / / Scrw Bone Dannie Ti Full Thrd 2.3mm X 20mm Implanted:Qty: 4 on 09/19/2015 by Elias Evans MD at [facility] Right: Radius [employer] CO-T2320 / / Scrw Non Kenan Hex 3.5mm X 12 Implanted:Qty: 2 on 09/19/2015 by Elias Evans MD at [facility] Right: Radius [employer]umed 30-0257 / / Scrw Non-Kenan Hexalobe 3.5mm X 10mm Implanted:Qty: 1 on 09/19/2015 by Elias Evans MD at [facility] Right: Radius [employer]umed [id number] / / Explanted Type Area Enterprise Resource Planning Consultant Device Identifier Shelf Expiration Date Model / Serial / Lot Drill Bit Explanted:Qty: 1 on 09/19/2015 at [facility] Right: Radius Acumed [id number] / / Gwire .054 X 6in Explanted:Qty: 2 on 09/19/2015 at [facility] Right: Radius Acumed [id number] / / Drill Bit Explanted:Qty: 1 on 09/19/2015 at [facility] Right: Galindo Billy [id number] / / Insurance [facility]ICARE [facility] MEDICARE [facility]
[2025-05-25 11:47] LABS: Hematocrit 39.8 % (37.0-47.0); Hemoglobin 12.5 g/dL (12.0-15.0); Immature Granulocyte Percent A 0.4 % (0-0.5); Immature Platelet Fraction Pct 3.2 % (0.9-11.2); Lymphocytes Absolute Auto 1.13 K/mm3 (0.9-3.2); Mean Corpuscular HGB Conc 31.4 g/dl (32-36); Mean Corpuscular Hemoglobin 29.3 pg (26-34); Mean Corpuscular Volume 93.4 fl (80-100); Nucleated Red Blood Cells Absolute Auto 0.000 K/mm3 (0.0-0.012); Nucleated Red Blood Cells Perc 0.0 % (0.0-0.2); Platelet Count Result 141 k/mm3 (150-375); Red Blood Count 4.26 M/mm3 (4.2-5.4); White Blood Count 5.4 K/mm3 (4.5-10.0)
[2025-05-25 12:12] LABS: INR 1.1; Prothrombin Time 13.9 Seconds (11.1-14.7)
[2025-05-25 12:13] LABS: Partial Thromboplastin Time 27.7 Seconds (22.3-36.8)
[2025-05-25 12:28] LABS: Anion Gap 6 mmol/L (4-12); Blood Urea Nitrogen 37 mg/dL (7-17); Calcium 9.8 mg/dL (8.4-10.2); Carbon Dioxide 29 mmol/L (22-30); Chloride 104 mmol/L (98-107); Estimated Glomerular Filt Rate 37; Glucose 105 mg/dL (65-110); Potassium 4.2 mmol/L (3.4-5.0); Sodium 139 mmol/L (137-145)
[2025-05-25 13:05] LABS: MRSA (PCR) NOT DETECTED (NOT DETECTE)
== END 2025-05-25 10:07 | disposition home or self-care (01) ==
LOC: ANHSURGERY 10:20
PROVIDERS: Anesthesiology; Visit Provider Orthopaedic Surgery
DX: Z01.812 Encounter for preprocedural laboratory examination (principal); M19.011 Primary osteoarthritis, right shoulder; N18.32 Chronic kidney disease, stage 3b
CPT/HCPCS: 36415; 80048; 85025; 85055; 85610; 85730; 87641

== ENCOUNTER 2025-06-02 15:06 | Outpatient (CLI) | payer MEDICARE, SELFPAY ==
--- OUTSIDE RECORDS SUMMARY | 2025-06-02 08:00 | XMS_ITS | Encounter Summary ---
Author Organization [facility] Healthcare Address [address] [place] [address] Care Team Providers Care Information Systems Planner Name Role Phone Camiloaldenayadrommel Sandra Crouch NP Primary Care Provide r Reason for Visit * Reason Comments Follow-up 12 mo f/u with EKG Hypertension Encounter Details Date Type Department Care Team (Late st Contact Info) Description 06/02/2025 8:00 AM CDT Office Visit [facility] Trimmer at [address] [place] [address] Rey Billings MD [address] [place] [address] [facility] [address] [place] [address] Primary hypertension (Primary Dx) Social History Tobacco Use Types Packs/Day Years Used Date Smoking Tobacco: Never Smokeless Tobacco: Never Alcohol Use Standard Drinks/Week Comments No 0 (1 standard drink = 0.6 oz pur e alcohol) Comments No Sex and Gender Information Value Date Recorded Sex Assigned at Not on file Legal Sex Female 12:26 AM FIBRE COMPOSITE TECHNICIAN Gender Identity Not on file Sexual Orientation Not on file documented as of this encounter Last Filed Vital Signs Vital Sign Reading Time Taken Comments Blood Pressure 139/83 06/02/2025 8:10 AM CDT Pulse 67 06/02/2025 8:10 AM CDT Temperature - - Respiratory Rate - - Oxygen Saturation - - Inhaled Oxygen Concentration - - Weight 94.3 kg (208 lb) 06/02/2025 8:10 AM CDT Height 160 cm (5' 3) 06/02/2025 8:10 AM CDT Body Mass Index 36.85 06/02/2025 8:10 AM CDT documented in this encounter Progress Notes * Rey Billings MD - 06/02/2025 8:00 AM CDT Cardiology note 06/02/2025 This note contains information and findings from prior encounters which remain the same for today'sencounter. I have reviewed and made updates where applicable. Reason for Office Visit: Chief Complaint Patient presents with Follow-up 12 mo f/u with EKG Hypertension History of Present Illness: Radha Hoffman is a 85 y.o. female who presents to the office for a follow up visit HTN and palpitation, hyperlidemia, obesity. Patient weight is stable since last visit tries to stay active - Patient denies any shortness of breath, fatigue or claudication No new issues cardiac-gomez since last visit compliant with medications Lost 10 lb since last year Review of Systems: Review of Systems Constitutional: Negative for decreased appetite, malaise/fatigue, weight gain and weight loss. HENT: Negative for ear discharge, hearing loss and nosebleeds. Eyes: Negative for blurred vision and visual disturbance. Cardiovascular: Negative for chest pain, claudication, dyspnea on exertion, irregular heartbeat, leg swelling, near-syncope, palpitations, paroxysmal nocturnal dyspnea and syncope. Respiratory: Negative for cough, shortness of breath, sleep disturbances due to breathing, snoring and wheezing. Hematologic/Lymphatic: Negative for bleeding problem. Does not bruise/bleed easily. Skin: Negative for color change and poor wound healing. Musculoskeletal: Negative for back pain and myalgias. Gastrointestinal: Negative for bloating, heartburn and nausea. Genitourinary: Negative for hematuria. Neurological: Positive for headaches. Negative for excessive daytime sleepiness, dizziness, light-headedness, loss of balance and tremors. Psychiatric/Behavioral: Negative for altered mental status, depression and memory loss. Histories: Past Medical History: Diagnosis Date Arthritis Arthritis Asthma Asthma Endometritis 1980 Endometriosis HX OTHER MEDICAL Cyst off ovary HX OTHER MEDICAL 2007 Rectal mass-cancer HX OTHER MEDICAL DJD-carmita knee HX OTHER MEDICAL Bursitis HX OTHER MEDICAL CP-cardiac cath-normal Hypertension Hypertension Malignant neoplasm of rectum (HCC) Cancer, rectal Past Surgical History: Procedure Laterality Date CHOLECYSTECTOMY Cholecystectomy CHOLECYSTECTOMY 1977 Cholecystectomy HIP ARTHROPLASTY Right Hip arthroplasty KNEE ARTHROPLASTY Knee replacement OTHER SURGICAL HISTORY 2006 Transanal excision Rectal cancer 05/12 OTHER SURGICAL HISTORY Endometriosis: JACOB/BSO OTHER SURGICAL HISTORY Rectal mass-cancer: Resected OTHER SURGICAL HISTORY DJD-carmita knee: Bilateral knee replacement OTHER SURGICAL HISTORY CP-cardiac cath-normal: Sees cardiology q 6mos TOTAL ABDOMINAL HYSTERECTOMY W/ BILATERAL SALPINGOOPHORECTOMY Hysterectomy, total abdominal, BSO Family History Problem Relation Age of Onset Breast cancer Mother Endometrial cancer Daughter Other Daughter abnormal pap; Diverticulosis Grandchild Diverticulosis; Ovarian cancer Neg Hx Thyroid cancer Neg Hx Social History Tobacco Use Smoking status: Never Smoker Smokeless tobacco: Never Used Substance Use Topics Alcohol use: No Drug use: Not on file Allergies: Allergies Allergen Reactions Prochlorperazine Other (See comments) Reaction: Dizziness, Atorvastatin Sulfa (Sulfonamide Antibiotics) Nausea only, Vomiting and Nausea And Vomiting Reaction: Nausea, Vomiting, Current Outpatient Medications Medication Sig Dispense Refill albuterol HFA (PROVENTIL HFA,VENTOLIN HFA) 90 mcg/actuation inhaler inhale 2 puff by INHALATION route 4 - 6 hours as needed 0 aspirin (ASPIRIN LOW-STRENGTH) 81 mg chewable tablet Take one by mouth one time per day 0 0 cholecalciferol (VITAMIN D-3) 1,000 unit capsule Take 5 capsules (5,000 Units total) by mouth daily ezetimibe (ZETIA) 10 mg tablet TK 1 T PO D 3 lisinopriL (PRINIVIL,ZESTRIL) 20 mg tablet TAKE 1 TABLET BY MOUTH DAILY 30 tablet 11 lisinopril-hydroCHLOROthiazide (ZESTORETIC) 20-25 mg per tablet Take 1 tablet by mouth daily In themorning loratadine 10 mg capsule Take 10 mg by mouth daily LORazepam (ATIVAN) 1 mg tablet Take one by mouth one time per day as needed 0 0 metoprolol XL (TOPROL-XL) 100 mg 24 hr tablet Take 1 tablet (100 mg total) by mouth daily pravastatin (PRAVACHOL) 40 mg tablet Take 1 tablet (40 mg total) by mouth daily No current facility-administered medications for this visit. No current facility-administered medications for this visit. No current facility-administered medications for this visit. Vitals BP 139/83 (BP Location: Right arm, Patient Position: Sitting) Pulse 67 Ht 160 cm (5' 3) Wt 94.3 kg (208 lb) BMI 36.85 kg/m?? Wt Readings from Last 3 Encounters: 06/02/25 94.3 kg (208 lb) 05/27/24 98.9 kg (218 lb) 05/22/23 98 kg (216 lb) Body mass index is 36.85 kg/m??. Physical Exam: Physical Exam Constitutional: General: She is not in acute distress. Appearance: Normal appearance. She is well-developed. She is not diaphoretic. HENT: Mouth/Throat: Pharynx: No oropharyngeal exudate. Eyes: Conjunctiva/sclera: Conjunctivae normal. Pupils: Pupils are equal, round, and reactive to light. Neck: Vascular: No carotid bruit or JVD. Trachea: No tracheal deviation. Cardiovascular: Rate and Rhythm: Normal rate and regular rhythm. Pulses: Intact distal pulses. No decreased pulses. Heart sounds: S1 normal and S2 normal. No murmur heard. No gallop. Pulmonary: Effort: Pulmonary effort is normal. Breath sounds: No decreased breath sounds, wheezing, rhonchi or rales. Abdominal: General: Bowel sounds are normal. Palpations: Abdomen is soft. Skin: General: Skin is warm and dry. Neurological: Mental Status: She is alert and oriented to person, place, and time. Red dermatitis patches noted on arms and reported on legs Labs: Lab Results Component Value Date INR 0.92 08/23/2016 INR 1.03 05/05/2015 No results found for: PT No results found for: TSH, T3FREE, FREET4 Lab Results Component Value Date BILIRUBINU Negative 08/23/2016 AST 21 05/05/2015 ALT 23 05/05/2015 ALKPHOS 54 05/05/2015 ALBUMIN 4.0 12/02/2024 Lab Results Component Value Date SODIUM 140 12/02/2024 POTASSIUM 4.2 12/02/2024 CHLORIDE 102 12/02/2024 CO2 28 12/02/2024 ANIONGAP 10 12/02/2024 CK 101 04/14/2024 GLUCOSEUR Negative 04/14/2024 No results found for: BNP Lab Results Component Value Date SODIUM 140 12/02/2024 SODIUM 140 05/13/2024 SODIUM 134 (L) 04/14/2024 POTASSIUM 4.2 12/02/2024 POTASSIUM 4.0 05/13/2024 POTASSIUM 4.1 04/14/2024 CHLORIDE 102 12/02/2024 CHLORIDE 100 05/13/2024 CHLORIDE 96 (L) 04/14/2024 CO2 28 12/02/2024 CO2 30 05/13/2024 CO2 27 04/14/2024 BUNSER 32 (H) 12/02/2024 BUNSER 26 (H) 05/13/2024 BUNSER 25 04/14/2024 CREATININE 1.20 (H) 12/02/2024 CREATININE 1.26 (H) 05/13/2024 CREATININE 1.22 (H) 04/14/2024 GFRNAA 45 (L) 12/02/2024 GFRNAA 43 (L) 05/13/2024 GFRNAA 45 (L) 04/14/2024 GLUCOSE 96 12/02/2024 CALCIUM 9.6 12/02/2024 CALCIUM 9.3 05/13/2024 CALCIUM 9.3 04/14/2024 ALBUMIN 4.0 12/02/2024 ALBUMIN 3.9 04/14/2024 PHOS 3.9 12/02/2024 PHOS 3.3 04/14/2024 PHOS 2.8 05/07/2015 Lab Results Component Value Date SODIUM 140 12/02/2024 POTASSIUM 4.2 12/02/2024 CHLORIDE 102 12/02/2024 CO2 28 12/02/2024 ANIONGAP 10 12/02/2024 BUNSER 32 (H) 12/02/2024 CREATININE 1.20 (H) 12/02/2024 GLUCOSE 96 12/02/2024 CALCIUM 9.6 12/02/2024 BILITOT 0.8 05/05/2015 ALBUMIN 4.0 12/02/2024 ALKPHOS 54 05/05/2015 ALT 23 05/05/2015 AST 21 05/05/2015 Lab Results Component Value Date WBC 4.0 12/02/2024 HGB 12.8 12/02/2024 HCT 39.2 12/02/2024 LABPLAT 149 (L) 12/02/2024 MPV 10.8 12/02/2024 RBC 4.21 12/02/2024 MCV 93.1 12/02/2024 MCH 30.4 12/02/2024 MCHC 32.7 12/02/2024 RDWCV 13.3 12/02/2024 RDWSD 45.4 12/02/2024 NRBCABS 0.00 12/02/2024 No results found for: CHOL, TRIG, HDL, LDLCALC, NONHDLCHOL, CHOLHDL 01/26 LDL 88, A1c 6.1%, thyroid profile normal 09/27 LDL 94 12/28 LDL 80 Testing: Tests: 04/2015 Last stress thallium was negative for ischemia. 2005 C Cath No CAD 09/21 Echo Ef 50-60% 09/2017 stress negative EKG: SR incompl RBBB 06/21 05/27 sinus rhythm right bundle-branch block unchanged 05/26 EKG shows sinus rhythm incomplete right bundle-branch block unchanged from before 05/28 EKG sinus rhythm incomplete right bundle-branch block unchanged 05/30 EKG sinus rhythm incomplete right bundle-branch block unchanged Diagnoses and Plan Assessment: Hypertension - controlled Essential Hypertension [I10] Palpitations [R00.2] Dyslipidemia Chronic kidney disease \ Plan: Continue same medication regimen. Continue tight control of blood pressure and cholesterol. Continue diet, exercise, and weight reduction. Uses support socks to take care of her ankle swelling Lipids are at goal EKG remains unchanged avoid caffeine Cleared for her upcoming shoulder surgery RTC 12 months No follow-ups on file. 8:22 AM Rey Billings MD Cc:Sandra Pressley NP documented in this encounter Plan of Treatment Not on file documented as of this encounter Procedures Procedure Name Priority Date/Time Associated Diagnosis Comments ECG 12-LEAD Routine 06/02/2025 8:12 AM CDT Primary hypertension documented in this encounter Results * ECG 12 lead (06/02/2025 8:12 AM CDT) us Rey Billings MD ECG ORDERABLES Final Result documented in this encounter Visit Diagnoses Diagnosis Primary hypertension- Primary Unspecified essential hypertension documented in this encounter Discontinued Medications Medication Sig Discontinue Reason Start Date End Da te pravastatin (PRAVACHOL) 20 mg tablet Take 1 tablet (20 mg total) by mouth daily Other 03/06/2022 06/02/2025 documented as of this encounter Historical Medications * This list may reflect changes made after this encounter. pravastatin (PRAVACHOL) 40 mg tablet Take 1 tablet (40 mg total) by mouth daily 04/03/2025 added in this encounter Care Teams Information Systems Planner Relationship Specialty Start Date End Date Sandra Pressley NP [address] [place] [address] PCP - General Emergency Medicine 11/03/24 documented as of this encounter
--- OUTSIDE RECORDS SUMMARY | 2025-06-02 15:10 | XMS_ITS | Encounter Summary ---
Author Organization [facility] Address [address] [place] [address] Phone Care Team Providers Care Casting Sorter Name Role Phone Sandra Salas MD Primary Care Provider + [phone] Val Mustafa MD Primary Care Provider + [phone] Hernandez Marrero PAC Primary Care Provider + [phone] Sandra Pressley APRN, WEB CONTENT EXECUTIVE Primary Care P rovider Felix Kaiser MD Unavailable [phone] Kan Billings MD Unavailable [phone] Reason for Visit * Reason Comments Medication Refill Encounter Details Date Type Department Care Team (Late st Contact Info) Description 09/13/2021 Refill [facility] - Primary Care - [place] [address] [place] [address] Sandra Salas MD [address] [place] [address] Medication Refill Social History Tobacco [...] CDT Gender Identity Female 08/28/2023 1:03 PM CYBER SECURITY MANAGER Sexual Orientation Straight 08/28/2023 1: 03 PM CYBER SECURITY MANAGER COVID-19 Exposure Response Date Recorded In the last month, have you been in contact with someone who was confirmed or suspected to have Coronavirus / COVID-19? No / Unsure 09/12/2021 11:02 AM CYBER SECURITY MANAGER documented as of this encounter Miscellaneous Notes * Telephone Encounter - Elena Putnam RN - 09/13/2021 11:37 AM CST lisinopril-hydroCHLOROthiazide (PRINZIDE, ZESTORETIC) 20-25 MG Tablet 90 Tablet 1 06/14/2021 R SECURITY MANAGER documented in this encounter Plan of Treatment Not on file documented as of this encounter Visit Diagnoses Not on filedocumented in this encounter Additional Health Concerns Infection Onset Date Last Indicated Resolved Time COVID - 19 11/17/2023 11/17/2023 11/17/2023 11:3 3 AM CYBER SECURITY MANAGER COVID - 19 11/17/2023 11/17/2023 11/17/2023 11:3 8 AM CYBER SECURITY MANAGER COVID - 19 11/17/2023 11/17/2023 11/17/2023 11:5 1 AM CYBER SECURITY MANAGER COVID - 19 Confirmed 11/17/2023 11/17/2023 03/2 024 12:16 AM CYBER SECURITY MANAGER Assessment Noted Time PHQ-9 Depression Total Score: 0 11/02/19 20 1:00 PM CYBER SECURITY MANAGER documented as of this encounter Care Teams Casting Sorter Relationship Specialty Start Date End Date Sandra Salas MD PCP - General Family Medicine 09/16/15 01/19/23 Val Mustafa MD [address] [place] [address] PCP - General Family Medicine 01/24/23 12/09/23 Hernandez Marrero, PAC [address] [place] [address] PCP - General Physician Paper Making Machine Operator 12/10/23 11/29/24 Sandra Pressley APRN, WEB CONTENT EXECUTIVE [address] [place] [address] PCP - General Advanced Practice Nurse 11/30/24 Felix Kaiser MD [address] [facility] [address] [place] [address] Consulting Physician Nephrology 12/21/24 Kan Billings MD [address] [place] [address] [place] [address] Consulting Physician Cardiovascular Disease - Cardiology 12/21/24 documented as of this encounter
--- OUTSIDE RECORDS SUMMARY | 2025-06-02 15:10 | XMS_ITS | Encounter Summary ---
Author Organization [facility] Address [address] [place] [address] Phone Care Team Providers Care Silk Screen Printing Racker Name Role Phone Sandra Salas MD Primary Care Provider + [phone] Val Mustafa MD Primary Care Provider + [phone] Hernandez Marrero PAC Primary Care Provider + [phone] Sandra Pressley APRN, WORSTED WINDER Primary Care P rovider Felix Kaiser MD Unavailable [phone] Kan Billings MD Unavailable [phone] Reason for Visit * Reason Comments Medication Refill Encounter Details Date Type Department Care Team (Late st Contact Info) Description 03/05/2022 Refill [facility] - Primary Care - [place] [address] [place] [address] Sandra Salas MD [address] [place] [address] Medication Refill Social History Tobacco [...] CDT Gender Identity Female 08/28/2023 1:03 PM PUBLICATIONS PRODUCTION SUPERVISOR Sexual Orientation Straight 08/28/2023 1: 03 PM PUBLICATIONS PRODUCTION SUPERVISOR documented as of this encounter Miscellaneous [...] 19 11/17/2023 11/17/2023 11/17/2023 11:3 3 AM PUBLICATIONS PRODUCTION SUPERVISOR COVID - 19 11/17/2023 11/17/2023 11/17/2023 11:3 8 AM PUBLICATIONS PRODUCTION SUPERVISOR COVID - 19 11/17/2023 11/17/2023 11/17/2023 11:5 1 AM PUBLICATIONS PRODUCTION SUPERVISOR COVID - 19 Confirmed 11/17/2023 11/17/2023 024 12:16 AM PUBLICATIONS PRODUCTION SUPERVISOR Assessment Noted Time PHQ-9 Depression Total Score: 0 11/02/19 20 1:00 PM PUBLICATIONS PRODUCTION SUPERVISOR documented as of this encounter Care Teams Silk Screen Printing Racker Relationship Specialty Start Date End Date Sandra Salas MD PCP - General Family Medicine 09/16/15 01/19/23 Val Mustafa MD [address] [place] [address] PCP - General Family Medicine 01/24/23 12/09/23 Hernandez Marrero PAC [address] [place] [id number] PCP - General Physician Waterproofing Mixer 12/10/23 11/29/24 Sandra Pressley, FISH CLEANER, WORSTED WINDER [address] [place] [address] PCP - General Advanced Practice Nurse 11/30/24 Felix Kaiser MD [address] [facility] [address] [place] [address] Consulting Physician Nephrology 12/21/24 Kan Billings MD [address] [place] [address] [address]AM[address] [place] [address] Consulting Physician Cardiovascular Disease - Cardiology 12/21/24 documented as of this encounter
--- OUTSIDE RECORDS SUMMARY | 2025-06-02 15:10 | XMS_ITS | Encounter Summary ---
Author Organization [facility] Address [address] [place] [address] Phone Care Team Providers Care Transfer Professor Name Role Phone Sandra Salas MD Primary Care Provider + [phone] Val Mustafa MD Primary Care Provider + [phone] Hernandez Marrero PAC Primary Care Provider + [phone] Sadnra Pressley APRN, HULL MOLDER Primary Care P rovider Felix Kaiser MD Unavailable [phone] Kan Billings MD Unavailable [phone] Reason for Visit * Reason Comments Medication Refill Encounter Details Date Type Department Care Team (Late st Contact Info) Description 05/18/2021 Refill [facility] - Primary Care - [place] [address] [place] [address] Sandra Salas MD [address] [place] [address] Medication Refill Social History Tobacco [...] CDT Gender Identity Female 08/28/2023 1:03 PM CERTIFIED MAINTENANCE WELDER Sexual Orientation Straight 08/28/2023 1: 03 PM CERTIFIED MAINTENANCE WELDER documented as of this encounter Miscellaneous Notes [...] 19 11/17/2023 11/17/2023 11/17/2023 11:3 3 AM CERTIFIED MAINTENANCE WELDER COVID - 19 11/17/2023 11/17/2023 11/17/2023 11:3 8 AM CERTIFIED MAINTENANCE WELDER COVID - 19 11/17/2023 11/17/2023 11/17/2023 11:5 1 AM CERTIFIED MAINTENANCE WELDER COVID - 19 Confirmed 11/17/2023 11/17/2023 024 12:16 AM CERTIFIED MAINTENANCE WELDER Assessment Noted Time PHQ-9 Depression Total Score: 0 11/02/19 20 1:00 PM CERTIFIED MAINTENANCE WELDER documented as of this encounter Care Teams Transfer Professor Relationship Specialty Start Date End Date Sandra Salas MD PCP - General Family Medicine 09/16/15 01/19/23 Val Mustafa MD [address] [place] [address] PCP - General Family Medicine 01/24/23 12/09/23 Hernandez Marrero, PAC [address] [place] [address] PCP - General Physician Casino Shift Manager 12/10/23 11/29/24 Sandra Pressley APRN, HULL MOLDER [address] [place] [address] PCP - General Advanced Practice Nurse 11/30/24 Felix Kaiser MD [address] [facility] [address] [place] [address] Consulting Physician Nephrology 12/21/24 Kan Billings MD [address] [place] [address] [address] Consulting Physician Cardiovascular Disease - Cardiology 12/21/24 documented as of this encounter
--- OUTSIDE RECORDS SUMMARY | 2025-06-02 15:10 | XMS_ITS | Encounter Summary ---
Author Organization [facility] Address [address] [place] [address] Phone Care Team Providers Care Corporate Legal Assistant Name Role Phone Sandra Salas MD Primary Care Provider + [phone] Val Mustafa MD Primary Care Provider + [phone] Hernandez Marrero PAC Primary Care Provider + [phone] Sandra Pressley APRN, MIX CHEMIST Primary Care P rovider Felix Kaiser MD Unavailable [phone] Kan Billings MD Unavailable [phone] Reason for Visit * Reason Comments Medication Refill Encounter Details Date Type Department Care Team (Late st Contact Info) Description 03/12/2022 Refill [facility] - Primary Care - [place] [address] [place] [address] Sandra Salas MD [address] [place] [address] Medication Refill Social History Tobacco [...] CDT Gender Identity Female 08/28/2023 1:03 PM STILL OPERATOR BRANDY Sexual Orientation Straight 08/28/2023 1: 03 PM STILL OPERATOR BRANDY documented as of this encounter Miscellaneous Notes [...] 19 11/17/2023 11/17/2023 11/17/2023 11:3 3 AM STILL OPERATOR BRANDY COVID - 19 11/17/2023 11/17/2023 11/17/2023 11:3 8 AM STILL OPERATOR BRANDY COVID - 19 11/17/2023 11/17/2023 11/17/2023 11:5 1 AM STILL OPERATOR BRANDY COVID - 19 Confirmed 11/17/2023 11/17/2023 03//2 024 12:16 AM STILL OPERATOR BRANDY Assessment Noted Time PHQ-9 Depression Total Score: 0 11/02/19 20 1:00 PM STILL OPERATOR BRANDY documented as of this encounter Care Teams Corporate Legal Assistant Relationship Specialty Start Date End Date Sandra Salas MD PCP - General Family Medicine 09/16/15 01/19/23 Val Mustafa MD [address] [place] [address] PCP - General Family Medicine 01/24/23 12/09/23 Hernandez Marrero, PAC [address] [place] [address] PCP - General Physician Pharmacy Messenger 12/10/23 11/29/24 Sandra Pressley, DRAGGER, MIX CHEMIST [address] [place] [address] PCP - General Advanced Practice Nurse 11/30/24 Felix Kaiser MD [address] [facility] [address] [place] [address] Consulting Physician Nephrology 12/21/24 Kan Billings MD [address] [place] [address] Consulting Physician Cardiovascular Disease - Cardiology 12/21/24 documented as of this encounter
--- OUTSIDE RECORDS SUMMARY | 2025-06-02 15:10 | XMS_ITS | Clinical Summary ---
Author Organization [facility] Address [address] [address] Phone Care Team Providers Care Outgoing Inspector Name Role Phone Sandra Pressley APRN, ALTERATIONS SEWER Primary Care P romaricelder Felix Kaiser MD Unavailable [phone] Kan Billings MD Unavailable [phone] Allergies Active Allergy Reactions Criticality Noted Date [...] Type Department Care Team Description 04/24/2025 Refill [facility] - Primary Care - [place] [address] [place] [address] Hernandez Marrero, PAC Medication Refill from Last [...] pur e alcohol) occassionally glass of wine [employer] Answer Date Recorded In the past 12 months has [employer], [employer], oil, or water [employer] threatened to shut off services in your [...] week 11/30/2024 How often do you attend [facility] or protestant services? More than 4 times per year 11/30/2024 Do you belong to any clubs o r organizations such as buddhist groups, unions, fraternal or athletic groups, or [...] Total Score - Questions 1-9 0 12/04 [facility] of Occupat ional [facility] - Occupational Stress Questionnaire Answer Date Recorded [...] any time in the past 12 m [facility], were you homeless or living in a nursing home (including now)? No 11/30/2024 Education Answer Date Recorded What is the highest level of school you have completed or the highest degree you have received? Some college, no degree 11/18/2020 Comments No Sex and Gender Information Value Date Recorded Sex Assigned at Not on file Legal Sex Female 8:49 PM CDT Gender Identity Female 08/28/2023 1:03 PM CHRISTMAS TREE GRADER Sexual Orientation Straight 08/28/2023 1: 03 PM CHRISTMAS TREE GRADER Last Filed Vital Signs Vital Sign Reading [...] HEPATITIS C ANTIBODY Routine 09/08/2023 9:32 AM CHRISTMAS TREE GRADER Encounter for hepatitis C screening test for low risk patient PAIGE BONE DENSITOMETRY AXIAL SKELETON Routine 12/13/2020 Postmenopausal HM COLONOSCOPY Routine 06/21/2015 from Last 3 Months or Most Recently Relevant to Health Maintenance Results * HEPATITIS C ANTIBODY (09/08/2023 9:32 AM CHRISTMAS TREE GRADER) hepatitis C antibody 0.09 <1 S/CO [facility] ARCH [id number] 09/08/2023 9:23 PM CHRISTMAS TREE GRADER [facility] Comment: Signal/Cutoff ratio < 0.79 is Nondetected Signal/Cutoff ratio 0.80-0.99 is Grayzone Signal/Cutoff ratio > 0.99 is Detected Supplemental assays are recommended if signal/cutoff ratio is >/=1.00. Signal/cutoff ratio result >/= 5.00 is 97% predictive of positivity for recombinant immunoblot assay (RIBA) and will be reported to the [place] Department of Public Health as required. Blood Venipuncture / Unknown 09/08/2023 9:32 AM CHRISTMAS TREE GRADER 09/08/2023 9:32 AM CHRISTMAS TREE GRADER us Val Mustafa MD CHEMISTRY ORDERABLES Final R esult [facility] [address] [place] [address], * [facility] BONE DENSITOMETRY AXIAL SKELETON (12/13/2020) Anatomical Region Laterality Modality BODY N/A Other us Sandra Pressley DISPENSING LEAD, ALTERATIONS SEWER IMG DEXA ORDERA BLES Final Result * COLONOSCOPY (06/21/2015) Sandra Salas MD PROCEDURE/MINOR SURGICAL ORD ERABLES Final Result from Last 3 Months or Most Recently Relevant to Health Maintenance Insurance MEDICARE C [facility] [facility] Advance Directives Documents on File Type Date Recorded Patient Paraprofessional Aide Teacher Expl anation Advance Care Planning Discussion 11/26/2023 11:08 AM ACP Power of Media Librarian for Health Care 11/26/2023 11:07 AM POA / HEALTH CARE Care Teams Outgoing Inspector Relationship Specialty Start Date End Date Sandra Pressley, DISPENSING LEAD, ALTERATIONS SEWER [address] [place] [address] PCP - General Advanced Practice Nurse 11/30/24 Felix Kaiser MD [address] [place] [address] Consulting Physician Nephrology 12/21/24 Kan Billings MD [address] LAM[address] [place] [address] Consulting Physician Cardiovascular Disease - Cardiology 12/21/24
--- OUTSIDE RECORDS SUMMARY | 2025-06-02 15:10 | XMS_ITS | Clinical Summary ---
Author Organization [facility] [employer] Address [address] [place] [address] Care Team Providers Care Major Account Manager Name Role Phone Unavailable Primary Care Provider Unavailabl e Source Comments [facility] [employer],non-owned Affiliates and Associated Physician Practices is amultiple site organization consisting of ambulatory clinics and hospital sitesin [place], [place], [place] and [place]. This disclosure is being madepursuant to the Care Everywhere program and may not contain all information available regarding this patient. Last updated 18.[employer] Allergies Active Allergy Reactions Criticality Noted Date [...] on file Legal Sex Female 10:30 AM CASER IN Gender Identity Not on file Sexual Orientation Not on file Last Filed Vital Signs Vital Sign Reading Time Taken Comments Blood Pressure 150/86 09/19/2015 2:52 PM CASER IN Pulse 66 09/19/2015 2:52 PM CASER IN Temperature 37 C (98.6 F) 09/19/2015 2:22 PM CASER IN Respiratory Rate 18 09/19/2015 2:52 PM CASER IN Oxygen Saturation 100% 09/19/2015 2:53 PM CASER IN Inhaled Oxygen Concentration - - Weight 90.7 kg (200 lb) 09/19/2015 6:09 AM CASER IN Height 160 cm (5' 3) 09/18/2015 3:29 PM CASER IN Body Mass Index 35.43 09/18/2015 3:29 PM CASER IN Plan of Treatment Health Maintenance Due Date [...] this topic Medical Devices Implanted Type Area Adjunct Professor Of Voice Device Identifier Shelf Expiration Date Model / Serial / Lot Plate Vdr2 Proxm W L Narr Implanted:Qty: 1 on 09/19/2015 by Elias Evans MD at [facility] Right: Radius Acumed 70-0359 / / Peg Smooth Kenan 2.3 X 20mm Implanted:Qty: 1 on 09/19/2015 by Elias Evans MD at [facility] Right: Radius Acumed CO-S2320 / / Scrw Kenan Thrd 2.3 X 18mm Implanted:Qty: 1 on 09/19/2015 by Elias Evans MD at [facility] Right: Radius Acumed CO-T2318 / / Scrw Bone Dannie Ti Full Thrd 2.3mm X 20mm Implanted:Qty: 4 on 09/19/2015 by Elias Evans MD at [facility] Right: Radius Acumed CO-T2320 / / Scrw Non Kenan Hex 3.5mm X 12 Implanted:Qty: 2 on 09/19/2015 by Elias Evans MD at [facility] Right: Radius Acumed 30-0257 / / Scrw Non-Kenan Hexalobe 3.5mm X 10mm Implanted:Qty: 1 on 09/19/2015 by Elias Evans MD at [facility] Right: Radius Acumed [id number] / / Explanted Type Area Adjunct Professor Of Voice Device Identifier Shelf Expiration Date Model / Serial / Lot Drill Bit Explanted:Qty: 1 on 09/19/2015 at [facility] Right: Radius Acumed [id number] / / Gwire .054 X 6in Explanted:Qty: 2 on 09/19/2015 at [facility] Right: Radius Acumed [id number] / / Drill Bit Explanted:Qty: 1 on 09/19/2015 at [facility] Right: Galindo Billy [id number] / / Insurance MEDICARE [facility] MEDICARE [facility]
--- OUTSIDE RECORDS SUMMARY | 2025-06-02 15:10 | XMS_ITS | Encounter Summary ---
Author Organization [facility] Address [address] [place] [address] Phone Care Team Providers Care Farm Or Ranch Animal Caretaker Name Role Phone Hernandez Marrero Primary Care Provider Sandra Pressley APRN, SCOWMAN Primary Care P rovider Felix Kaiser MD Unavailable [phone] Kan Billings MD Unavailable Reason for Visit * Reason Comments Medication Refill Encounter Details Date Type Department Care Team (Late st Contact Info) Description 12/10/2023 Refill [facility] - Primary Care - [place] [address] [place] [address] Val Mustafa MD [address] [place] [address] Medication Refill Social History Tobacco [...] CDT Gender Identity Female 08/28/2023 1:03 PM COMMUNITY RELATIONS ADVISOR Sexual Orientation Straight 08/28/2023 1: 03 PM COMMUNITY RELATIONS ADVISOR documented as of this encounter Plan of Treatment Not on file documented as of this encounter Visit Diagnoses Not on filedocumented in this encounter Additional Health Concerns Assessment Noted Time PHQ-9 Depression Total Score: 0 11/17/19 10:49 AM COMMUNITY RELATIONS ADVISOR documented as of this encounter Care Teams Farm Or Ranch Animal Caretaker Relationship Specialty Start Date End Date Hernandez Marrero, PAC [address] [place] [address] PCP - General Physician Uke Driver 12/10/23 11/29/24 Sandra Pressley APRN, SCOWMAN [address] [place] [address] PCP - General Advanced Practice Nurse 11/30/24 Felix Kaiser MD [address] [facility] [address] [place] [address] Consulting Physician Nephrology 12/21/24 Kan Billings MD [address] [place] [address] DR LAMB [address] [place] [address] Consulting Physician Cardiovascular Disease - Cardiology 12/21/24 documented as of this encounter
--- OUTSIDE RECORDS SUMMARY | 2025-06-02 15:10 | XMS_ITS | Encounter Summary ---
Author Organization [facility] Address [address] [place] [address] Phone Care Team Providers Care Intraoperative Neuro Tech Name Role Phone Sandra Salas MD Primary Care Provider + [phone] Val Mustafa MD Primary Care Provider + [phone] Hernandez Marrero PAC Primary Care Provider + [phone] Sandra Pressley APRN, FEED HOUSE SUPERVISOR Primary Care P rovider Felix Kaiser MD Unavailable [phone] Kan Billings MD Unavailable [phone] Reason for Visit * Reason Comments Medication Refill Encounter Details Date Type Department Care Team (Late st Contact Info) Description 06/11/2021 Refill [facility] - Primary Care - [place] [address] [place] [address] Sandra Salas MD [address] [place] [address] Medication Refill Social History Tobacco [...] CDT Gender Identity Female 08/28/2023 1:03 PM EVENT PLANNING MANAGER Sexual Orientation Straight 08/28/2023 1: 03 PM EVENT PLANNING MANAGER COVID-19 Exposure Response Date Recorded In [...] 19 11/17/2023 11/17/2023 11/17/2023 11:3 3 AM EVENT PLANNING MANAGER COVID - 19 11/17/2023 11/17/2023 11/17/2023 11:3 8 AM EVENT PLANNING MANAGER COVID - 19 11/17/2023 11/17/2023 11/17/2023 11:5 1 AM EVENT PLANNING MANAGER COVID - 19 Confirmed 11/17/2023 11/17/2023 03/2 024 12:16 AM EVENT PLANNING MANAGER Assessment Noted Time PHQ-9 Depression Total Score: 0 11/02/19 20 1:00 PM EVENT PLANNING MANAGER documented as of this encounter Care Teams Intraoperative Neuro Tech Relationship Specialty Start Date End Date Sandra Salas MD PCP - General Family Medicine 09/16/15 01/19/23 Val Mustafa MD [address] [place] [address] PCP - General Family Medicine 01/24/23 12/09/23 Hernandez Marrero, PAC [address] [place] [address] PCP - General Physician Software Tools Engineer 12/10/23 11/29/24 Sandra Pressley APRN, FEED HOUSE SUPERVISOR [address] [place] [address] PCP - General Advanced Practice Nurse 11/30/24 Felix Kaiser MD [address] [address] [place] [address] Consulting Physician Nephrology 12/21/24 Kan Billings MD [address] [place] [address] [place] [address] Consulting Physician Cardiovascular Disease - Cardiology 12/21/24 documented as of this encounter
--- OUTSIDE RECORDS SUMMARY | 2025-06-02 15:10 | XMS_ITS | Clinical Summary ---
Author Organization [facility] Address [address] [place] [address] Care Team Providers Care Youth Accommodation Support Worker Name Role Phone Camiloaldentodd Blaze Crouch NP Primary Care Provide r Allergies Active [...] 1 T PO D 3 7 Active cholecalcifero l (VITAMIN D-3) 1,000 unit capsule Take 5 capsules (5,000 Units total) by mouth daily Active loratadine 10 mg capsule Take 10 mg by mouth daily Active lisinopril-hyd roCHLOROthiazi de (ZESTORETIC) 20-25 mg per tablet Take 1 tablet by mouth daily In the morning Active metoprolol XL (TOPROL-XL) 100 mg 24 hr tablet Take 1 tablet (100 mg total) by mouth daily 2 Active lisinopriL (PRINIVIL,ZEST RIL) 20 mg tablet TAKE 1 TABLET BY MOUTH DAILY 30 tablet 11 4 Active pravastatin (PRAVACHOL) 40 mg tablet Take 1 tablet (40 mg total) by mouth daily 5 Active pravastatin (PRAVACHOL) 20 mg tablet Take 1 tablet (20 mg total) by mouth daily 2 06/02/20 25 Discontinu ed(Other) Active Problems Problem Noted Date Diagnosed Date Examination following surgery 09/09/2017 History of arthroplasty of right hip 09/09/2017 Tendinitis of both rotator cuffs 09/09/2017 Encounters Date Type Department Care Team Description 06/02/2025 8:00 AM CDT Office Visit [place] [facility] Intern at [address] [place] [address] Rey Billings MD Primary hypertension (Primary Dx) from Last 3 Months Immunizations Immunization Administration [...] on file Legal Sex Female 12:26 AM PRINTING ROLLER HANDLER Gender Identity Not on file Sexual Orientation [...] Pulse 67 06/02/2025 8:10 AM CDT Temperature 36.4 C (97.6 F) 05/10/2021 8:08 AM CDT Respiratory Rate 18 05/22/2023 9:01 AM CDT Oxygen Saturation - - Inhaled Oxygen Concentration - - Weight 94.3 kg (208 lb) 06/02/2025 8:10 AM CDT Height 160 cm (5' 3) 06/02/2025 8:10 AM CDT Body Mass Index 36.85 06/02/2025 8:10 AM CDT Plan of Treatment Health Maintenance Due Date Last Done Comments Depression Screening 1942 Fall Risk Assessment 1942 Hepatitis B Screening 1960 Well Visit 65+ 2007 Osteoporosis Screening-Bone Density Scan 12/13/2022 12/13/2020, 12/13/2020, 12/13/2020 Covid-19 Vaccine (2023- 5 season) 2024 10/05/2021, 12/14/2020, 11/16/2020 Influenza Vaccine (#1) 2025 , 07/23/2022, 07/24/2021, Additional history exists DTaP/Tdap/Td Vaccine (3 - Td or Tdap) 09/16/2025 09/16/2015, 10/06/2012 Pneumococcal vaccine 65+ Completed 020, 08/20/2016, 08/06/2012, Additional history exists Zoster Vaccine Completed 02/27/2024, 10/24/2023 Procedures Procedure Name Priority Date/Time Associated Diagnosis Comments ECG 12-LEAD Routine 06/02/2025 8:12 AM CDT Primary hypertension DEXA AXIAL SKELETON BONE DENSITY 1 OR MORE SITES Schedule Routine, Read Routine (OP Routine) 12/13/2020 10:06 AM PRINTING ROLLER HANDLER Encounter for screening for osteoporosis from Last 3 Months or Most Recently Relevant to Health Maintenance Results * ECG 12 lead (06/02/2025 8:12 AM CDT) us Rey Billings MD ECG ORDERABLES Final Result * Dexa Axial Skeleton Bone Density 1 or 2 Site (12/13/2020 10:06 AM PRINTING ROLLER HANDLER) Anatomical Region Laterality Modality Body N/A Other 12/13/2020 10:1 2 AM PRINTING ROLLER HANDLER Impressions 12/13/2020 10:18 AM PRINTING ROLLER HANDLER According to the World Health Organization criteria, [...] Akash Leyva M.D. Narrative 12/13/2020 10:18 AM PRINTING ROLLER HANDLER COMPLETION DATE: 12/13/2020 9:30 AM ORDERING HEALTHCARE PROVIDER: BLAZE CALDERON DESCRIPTION: DEXA AXIAL SKELETON BONE DENSITY 1 OR MORE SITES CLINICAL INDICATIONS: Screening for osteoporosis. Parietal hip fracture, history of rheumatoid arthritis, no regular weightbearing exercise, drinks caffeinated beverages. Reported use of vitamin D. COMPARISON: None available TECHNIQUE: Dual x-ray absorptiometry (DEXA) was performed using VideoStep system. GENERAL GUIDELINES: According to WHO guidelines, [...] Dual x-ray absorptiometry (DEXA) was performed using HoloAlum.ni system. GENERAL GUIDELINES: According to WHO guidelines, [...] therapy. Electronically signed by: Akash Leyva M.D. Blzae Pressley NP IMG DXA PROCEDURES Fi nal Result from Last 3 Months or Most Recently Relevant to Health Maintenance Insurance MEDICARE [facility] Address: [address] [address] [place] [address] MEDICARE [facility] Address: [address] [address] [place] [address] [facility] MEDICARE [facility] Address: [phone] [place] [address] Care Teams Youth Accommodation Support Worker Relationship Specialty Start Date End Date Blaze Pressley NP [address] [place] [address] PCP - General Emergency Medicine 11/03/24
--- OUTSIDE RECORDS SUMMARY | 2025-06-02 15:10 | XMS_ITS | Encounter Summary ---
Author Organization [facility] Address [address] [place] [address] Phone Care Team Providers Care Mortgage Advisor Name Role Phone Sandra Salas MD Primary Care Provider + [phone] Val Mustafa MD Primary Care Provider + [phone] Hernandez Marrero PAC Primary Care Provider + [phone] Sandra Pressley APRN, SWING TYPE LATHE OPERATOR Primary Care P rovider Felix Kaiser MD Unavailable [phone] Kan Billings MD Unavailable [phone] Reason for Visit * Reason Comments Medication Refill Encounter Details Date Type Department Care Team (Late st Contact Info) Description 11/13/2021 Refill [facility] - Primary Care - [place] [address] [place] [address] Sandra Salas MD [address] [place] [address] Medication Refill Social History Tobacco [...] CDT Gender Identity Female 08/28/2023 1:03 PM MOLD ENGRAVER Sexual Orientation Straight 08/28/2023 1: 03 PM MOLD ENGRAVER documented as of this encounter Miscellaneous Notes [...] Provider Dept 09/12/21 Office Visit Sandra Pressley, PRE OWNED SALES MANAGER, SWING TYPE LATHE OPERATOR [facility] 06/04/21 Office Visit Sandra Salas MD [facility] 11/28/20 Office Visit Sandra Pressley APRN, SWING TYPE LATHE OPERATOR [facility] Showing recent visits within past 365 days and meeting all other requirements Future Appointments Date Type Provider Dept 12/04/21 Appointment David Ruiz [facility] 12/11/21 Appointment Sandra Salas MD [facility] Showing future appointments within next 90 days and meeting all other requirements Passed - GFR on record in past 12 months GFR, EST. NONAFRICAN Date Value Ref Range Status 05/28/2021 40 (L) >=60 Final ENGRAVER documented in this encounter Plan of Treatment Not on file documented as of this encounter Visit Diagnoses Not on filedocumented in this encounter Additional Health Concerns Infection Onset Date Last Indicated Resolved Time COVID - 19 11/17/2023 11/17/2023 11/17/2023 11:3 3 AM MOLD ENGRAVER COVID - 19 11/17/2023 11/17/2023 11/17/2023 11:3 8 AM MOLD ENGRAVER COVID - 19 11/17/2023 11/17/2023 11/17/2023 11:5 1 AM MOLD ENGRAVER COVID - 19 Confirmed 11/17/2023 11/17/2023 024 12:16 AM MOLD ENGRAVER Assessment Noted Time PHQ-9 Depression Total Score: 0 11/02/19 20 1:00 PM MOLD ENGRAVER documented as of this encounter Care Teams Mortgage Advisor Relationship Specialty Start Date End Date Sandra Salas MD PCP - General Family Medicine 09/16/15 01/19/23 Val Mustafa MD [address] [place] [address] PCP - General Family Medicine 01/24/23 12/09/23 Hernandez Marrero PAC [address] [place] [address] PCP - General Physician Glass Bead Maker 12/10/23 11/29/24 Sandra Pressley APRN, SWING TYPE LATHE OPERATOR [address] [place] [address] PCP - General Advanced Practice Nurse 11/30/24 Felix Kaiser MD [address] [facility] [address] [place] [address] Consulting Physician Nephrology 12/21/24 Kan Billings MD [address] [place] [address] [address] LAM[address] [place] [address] Consulting Physician Cardiovascular Disease - Cardiology 12/21/24 documented as of this encounter
--- OUTSIDE RECORDS SUMMARY | 2025-06-02 15:10 | XMS_ITS | Encounter Summary ---
Author Organization [facility] Address [address] [place] [address] Phone Care Team Providers Care Sandblaster Glass Name Role Phone Sandra Salas MD Primary Care Provider + [phone] Val Mustafa MD Primary Care Provider + [phone] Hernandez Marrero PAC Primary Care Provider + [phone] Sandra Pressley APRN, DEVOPS DEVELOPER Primary Care P rovider Felix Kaiser MD Unavailable [phone] Kan Billings MD Unavailable [phone] Reason for Visit * Reason Comments Medication Refill Encounter Details Date Type Department Care Team (Late st Contact Info) Description 11/12/2021 Refill [facility] - Primary Care - [place] [address] [place] [address] Sandra Salas MD [address] [place] [address] Medication Refill Social History Tobacco [...] CDT Gender Identity Female 08/28/2023 1:03 PM FIBERGLASS LAMINATOR Sexual Orientation Straight 08/28/2023 1: 03 PM FIBERGLASS LAMINATOR documented as of this encounter Miscellaneous Notes * Telephone Encounter - Noemí Roper RN - 11/12/2021 1:01 PM FIBERGLASS LAMINATOR Refill requested too soon. RGLASS LAMINATOR documented in this encounter Plan of Treatment Not on file documented as of this encounter Visit Diagnoses Diagnosis Essential hypertension Unspecified essential hypertension Hyperlipidemia, unspecified hyperlipidemia type documented in this encounter Additional Health Concerns Infection Onset Date Last Indicated Resolved Time COVID - 19 11/17/2023 11/17/2023 11/17/2023 11:3 3 AM FIBERGLASS LAMINATOR COVID - 19 11/17/2023 11/17/2023 11/17/2023 11:3 8 AM FIBERGLASS LAMINATOR COVID - 19 11/17/2023 11/17/2023 11/17/2023 11:5 1 AM FIBERGLASS LAMINATOR COVID - 19 Confirmed 11/17/2023 11/17/202312/06/ 024 12:16 AM FIBERGLASS LAMINATOR Assessment Noted Time PHQ-9 Depression Total Score: 0 11/02/19 20 1:00 PM FIBERGLASS LAMINATOR documented as of this encounter Care Teams Sandblaster Glass Relationship Specialty Start Date End Date Sandra Salas MD PCP - General Family Medicine 09/16/15 01/19/23 Val Mustafa MD [address] [place] [address] PCP - General Family Medicine 01/24/23 12/09/23 Hernandez Marrero, PAC [address] [place] [address] PCP - General Physician Powerhouse Electrician Apprentice 12/10/23 11/29/24 Sandra Pressley APRN, DEVOPS DEVELOPER [address] [place] [address] PCP - General Advanced Practice Nurse 11/30/24 Felix Kaiser MD [address] [facility] [address] [place] [address] Consulting Physician Nephrology 12/21/24 Kan Billings MD [address] [place] [address] [place] [address] Consulting Physician Cardiovascular Disease - Cardiology 12/21/24 documented as of this encounter
--- OUTSIDE RECORDS SUMMARY | 2025-06-02 15:10 | XMS_ITS | Encounter Summary ---
Author Organization [facility] Address [address] [place] [address] Phone Care Team Providers Care Hide Mill Worker Name Role Phone Sandra Salas MD Primary Care Provider + [phone] Val Mustafa MD Primary Care Provider + [phone] Hernandez Marrero PAC Primary Care Provider + [phone] Sandra Pressley APRN, TENNIS PLAYER Primary Care P rovider Felix Kaiser MD Unavailable [phone] Kan Billings MD Unavailable [phone] Reason for Visit * Reason Comments Medication Refill Encounter Details Date Type Department Care Team (Late st Contact Info) Description 01/01/2022 Refill [facility] - Primary Care - [place] [address] [place] [address] Sandra Salas MD [address] [place] [address] Medication Refill Social History Tobacco [...] CDT Gender Identity Female 08/28/2023 1:03 PM TIME STUDY TECHNICIAN Sexual Orientation Straight 08/28/2023 1: 03 PM TIME STUDY TECHNICIAN documented as of this encounter Miscellaneous [...] 09/12/21 Office Visit Sandra Pressley APRN, VINICIO [facility] 06/04/21 Office Visit Sandra Salas MD [facility] Showing recent visits within past 365 days and meeting all other requirements Future Appointments Date Type Provider Dept 01/09/22 Appointment David, [facility] [place] [facility] 01/17/22 Appointment Sandra Salas MD [facility] [facility] Showing future appointments within next 90 days and meeting all other requirements documented in this encounter Plan of Treatment Not on file documented as of this encounter Visit Diagnoses Diagnosis Anxiety Anxiety state, unspecified documented in this encounter Additional Health Concerns Infection Onset Date Last Indicated Resolved Time COVID - 19 11/17/2023 11/17/2023 11/17/2023 11:3 3 AM TIME STUDY TECHNICIAN COVID - 19 11/17/2023 11/17/2023 11/17/2023 11:3 8 AM TIME STUDY TECHNICIAN COVID - 19 11/17/2023 11/17/2023 11/17/2023 11:5 1 AM TIME STUDY TECHNICIAN COVID - 19 Confirmed 11/17/2023 11/17/2023 024 12:16 AM TIME STUDY TECHNICIAN Assessment Noted Time PHQ-9 Depression Total Score: 0 11/02/19 20 1:00 PM TIME STUDY TECHNICIAN documented as of this encounter Care Teams Hide Mill Worker Relationship Specialty Start Date End Date Sandra Salas MD PCP - General Family Medicine 09/16/15 01/19/23 Val Mustafa MD [address] [place] [address] PCP - General Family Medicine 01/24/23 12/09/23 Hernandez Marrero, PAC [address] [place] [address] PCP - General Physician Precision Machining Instructor 12/10/23 11/29/24 Sandra Pressley, FLAVORING OIL FILTERER, TENNIS PLAYER [address] [place] [address] PCP - General Advanced Practice Nurse 11/30/24 Felix Kaiser MD [address] [place] [address] Consulting Physician Nephrology 12/21/24 ManuelitoKan martino MD 2 [facility] [address] [address] Consulting Physician Cardiovascular Disease - Cardiology 12/21/24 documented as of this encounter
--- OUTSIDE RECORDS SUMMARY | 2025-06-02 15:10 | XMS_ITS | Encounter Summary ---
Author Organization [facility] Address [address] [place] [address] Phone Care Team Providers Care Butt Sawyer Name Role Phone Sandra Salas MD Primary Care Provider + [phone] Val Mustafa MD Primary Care Provider + [phone] Hernandez Marrero PAC Primary Care Provider + [phone] Sandra Pressley APRN, FLOWER STRIPPER Primary Care P rovider Felix Kaiser MD Unavailable [phone] Kan Billings MD Unavailable [phone] Reason for Visit * Reason Comments Medication Refill Encounter Details Date Type Department Care Team (Late st Contact Info) Description 09/14/2020 Refill [facility] - Primary Care - [place] [address] [place] [address] Sandra Salas MD [address] [place] [address] Medication Refill Social History Tobacco [...] CDT Gender Identity Female 08/28/2023 1:03 PM MANUFACTURING LAB TECHNICIAN Sexual Orientation Straight 08/28/2023 1: 03 PM MANUFACTURING LAB TECHNICIAN documented as of this encounter Miscellaneous Notes * Telephone Encounter - Flavia Bañuelos, [facility] - 09/14/2020 7:53 AM CST Medication [...] Outpatient Visits 3 months ago Essential hypertension [facility] Sandra Salas MD 10 months ago Essential hypertension [facility] Sandra Multani MD 1 year ago Essential [facility] MD 2 years ago Acute sinusitis, recurrence not specified, unspecified location [facility] Sandra Bautista MD 2 years ago Essential hypertension [facility] Sandra Bautista MD Upcoming Appointments Future Appointments In 2 months [facility] In 2 months Sandra Salas MD [facility] REGISTRATION MANAGER - Recent and Past Visits Recent Visits Date Type Provider Dept 05/18/20 Office Visit Sandra Salas MD [facility] [address] 11/02/19 Office Visit Sandra Salas MD [facility] Showing recent visits within past 460 days with a meds authorizing provider and meeting all other requirements Future Appointments Date Type Provider Dept 11/20/20 Appointment Sandra Salas MD [facility] Showing future appointments within next 90 days with a meds authorizing provider and meeting all other requirements FACTURING LAB TECHNICIAN documented in this encounter Plan of Treatment Not on file documented as of this encounter Visit Diagnoses Diagnosis Anxiety Anxiety state, unspecified documented in this encounter Additional Health Concerns Infection Onset Date Last Indicated Resolved Time COVID - 19 10/04/2020 10/04/2020 10/06/2020 12:4 5 PM MANUFACTURING LAB TECHNICIAN COVID - 19 11/17/2023 11/17/2023 11/17/2023 11:3 3 AM MANUFACTURING LAB TECHNICIAN COVID - 19 11/17/2023 11/17/2023 11/17/2023 11:3 8 AM MANUFACTURING LAB TECHNICIAN COVID - 19 11/17/2023 11/17/2023 11/17/2023 11:5 1 AM MANUFACTURING LAB TECHNICIAN COVID - 19 Confirmed 11/17/2023 11/17/2023 03// 024 12:16 AM MANUFACTURING LAB TECHNICIAN Assessment Noted Time PHQ-9 Depression Total Score: 0 11/02/19 20 1:00 PM MANUFACTURING LAB TECHNICIAN documented as of this encounter Care Teams Butt Sawyer Relationship Specialty Start Date End Date Sandra Salas MD PCP - General Family Medicine 09/16/15 01/19/23 Val Mustafa MD [address] [place] [id number] PCP - General Family Medicine 01/24/23 12/09/23 Hernandez Marrero, PAC [address] [place] [address] PCP - General Physician Truck Mechanic Apprentice 12/10/23 11/29/24 Sandra Pressley APRN, FLOWER STRIPPER [address] [place] [address] PCP - General Advanced Practice Nurse 11/30/24 Felix Kaiser MD [address] [facility] [address] [place] [address] Consulting Physician Nephrology 12/21/24 Kan Billings MD [address] [place] [address] [address] Consulting Physician Cardiovascular Disease - Cardiology 12/21/24 documented as of this encounter
--- OUTSIDE RECORDS SUMMARY | 2025-06-02 15:10 | XMS_ITS | Encounter Summary ---
Author Organization [facility] Address [address] [place] [address] Phone Care Team Providers Care Special Machine Stitcher Name Role Phone JanesIsaijose JEAN-BAPTISTE Primary Care Provider Sandra Pressley APRN, VINICIO Primary Care P rovider Felix Kaiser MD Unavailable [phone] Kan Billings MD Unavailable Reason for Visit * Reason Comments Medication Refill Encounter Details Date Type Department Care Team (Late st Contact Info) Description 12/10/2023 Refill [facility] - Primary Care - [place] [address] [place] [address] Sandra Pressley APRN, SENIOR GAMEMASTER [address] [place] [address] Medication Refill Social History Tobacco Use Types [...] CDT Gender Identity Female 08/28/2023 1:03 PM ACUTE SPECIALIST Sexual Orientation Straight 08/28/2023 1: 03 PM ACUTE SPECIALIST documented as of this encounter Plan of Treatment Not on file documented as of this encounter Visit Diagnoses Diagnosis Hyperlipidemia, unspecified hyperlipidemia type documented in this encounter Additional Health Concerns Assessment Noted Time PHQ-9 Depression Total Score: 0 11/17/19 10:49 AM ACUTE SPECIALIST documented as of this encounter Care Teams Special Machine Stitcher Relationship Specialty Start Date End Date Hernandez Marrero PAC [address] [place] [address] PCP - General Physician Temporary Staff Accountant 12/10/23 11/29/24 Sandra Pressley APRN, SENIOR GAMEMASTER [address] [place] [address] PCP - General Advanced Practice Nurse 11/30/24 Felix Kaiser MD [address] [facility] [address] [place] [address] Consulting Physician Nephrology 12/21/24 Kan Billings MD [address] [place] [address] DR LAM[address] [place] [address] Consulting Physician Cardiovascular Disease - Cardiology 12/21/24 documented as of this encounter
--- OUTSIDE RECORDS SUMMARY | 2025-06-02 15:10 | XMS_ITS | Encounter Summary ---
Author Organization [facility] Address [address] [place] [address] Phone Care Team Providers Care Safety Clothing And Equipment Developer Name Role Phone Sandra Salas MD Primary Care Provider + [phone] Val Mustafa MD Primary Care Provider + [phone] Hernandez Marrero PAC Primary Care Provider + [phone] Sandra Pressley APRN, YARN INSPECTOR Primary Care P rovider Felix Kaiser MD Unavailable [phone] Kan Billings MD Unavailable [phone] Reason for Visit * Reason Comments Medication Refill Encounter Details Date Type Department Care Team (Late st Contact Info) Description 06/13/2021 Refill [facility] - Primary Care - [place] [address] [place] [address] Sandra Salas MD [address] [place] [address] Medication Refill Social History Tobacco [...] CDT Gender Identity Female 08/28/2023 1:03 PM SUGAR CHIPPER MACHINE OPERATOR Sexual Orientation Straight 08/28/2023 1: 03 PM SUGAR CHIPPER MACHINE OPERATOR COVID-19 Exposure Response Date Recorded In the [...] Dept 06/04/21 Office Visit Sandra Salas MD [facility] [address] 11/28/20 Office Visit Sandra Pressley SHORT RANGE AIR DEFENSE ARTILLERY, YARN INSPECTOR [facility] Showing recent visits within past [...] 19 11/17/2023 11/17/2023 11/17/2023 11:3 3 AM SUGAR CHIPPER MACHINE OPERATOR COVID - 19 11/17/2023 11/17/2023 11/17/2023 11:3 8 AM SUGAR CHIPPER MACHINE OPERATOR COVID - 19 11/17/2023 11/17/2023 11/17/2023 11:5 1 AM SUGAR CHIPPER MACHINE OPERATOR COVID - 19 Confirmed 11/17/2023 11/17/2023 03// 024 12:16 AM SUGAR CHIPPER MACHINE OPERATOR Assessment Noted Time PHQ-9 Depression Total Score: 0 11/02/19 20 1:00 PM SUGAR CHIPPER MACHINE OPERATOR documented as of this encounter Care Teams Safety Clothing And Equipment Developer Relationship Specialty Start Date End Date Sandra Salas MD PCP - General Family Medicine 09/16/15 01/19/23 Val Mustafa MD [address] [place] [address] PCP - General Family Medicine 01/24/23 12/09/23 Hernandez Marrero, PAC [address] [place] [address] PCP - General Physician Surveillance Officer 12/10/23 11/29/24 Sandra Pressley APRN, YARN INSPECTOR [address] [place] [address] PCP - General Advanced Practice Nurse 11/30/24 Felix Kaiser MD [address] [facility] [address] [place] [address] Consulting Physician Nephrology 12/21/24 Kan Billings MD [address] [facility] [place] [address] Consulting Physician Cardiovascular Disease - Cardiology 12/21/24 documented as of this encounter
--- OUTSIDE RECORDS SUMMARY | 2025-06-02 15:10 | XMS_ITS | Encounter Summary ---
Author Organization [facility] Address [address] [place] [address] Phone Care Team Providers Care Manager Endoscopy Name Role Phone Hernandez Marrero Primary Care Provider Sandra Pressley APRN, FREIGHT ELEVATOR ERECTOR Primary Care P rovider Felix Kaiser MD Unavailable [phone] Kan Billings MD Unavailable Reason for Visit * Reason Comments Medication Refill Encounter Details Date Type Department Care Team (Late st Contact Info) Description 02/03/2024 Refill [facility] - Primary Care - [place] [address] [place] [address] Val Mustafa MD [address] [place] [address] Medication Refill Social History Tobacco [...] CDT Gender Identity Female 08/28/2023 1:03 PM AUTO BRAKE TECHNICIAN Sexual Orientation Straight 08/28/2023 1: 03 PM AUTO BRAKE TECHNICIAN documented as of this encounter Miscellaneous Notes * Telephone Encounter - Elena Putnam RN - 02/04/2024 9:05 AM CDT Medication(s) refilled and signed per [facility] Chronic Medication Refill Standing Order for Pediatricand Adult Patients. Requested Prescriptions Pending Prescriptions Disp Refills metoprolol Succinate (TOPROL-XL) 100 MG TABLET SR 24 HR [Pharmacy Med Name: METOPROLOL ER [id number]] 90 Tablet 1 Sig: TAKE 1 [...] Dept 11/17/23 Office Visit Hernandez Marrero PAC [facility] 09/08/23 Office Visit Val Mustafa MD [facility] Showing recent visits within past 365 [...] Depression Total Score: 0 11/17/19 10:49 AM AUTO BRAKE TECHNICIAN documented as of this encounter Care Teams Manager Endoscopy Relationship Specialty Start Date End Date Hernandez Marrero, PAC [address] [place] [address] PCP - General Physician Wellness Nurse 12/10/23 11/29/24 Sandra Pressley ARBOREAL SCIENTIST, FREIGHT ELEVATOR ERECTOR [address] [place] [address] PCP - General Advanced Practice Nurse 11/30/24 Felix Kaiser MD [address] [place] [address] Consulting Physician Nephrology 12/21/24 Kan Billings MD [address] [place] [address] [address] Consulting Physician Cardiovascular Disease - Cardiology 12/21/24 documented as of this encounter
--- OUTSIDE RECORDS SUMMARY | 2025-06-02 15:10 | XMS_ITS | Encounter Summary ---
Author Organization [facility] Address [address] [place] [address] Phone Care Team Providers Care Matte Cutter Name Role Phone Sandra Salas MD Primary Care Provider + [phone] Val Mustafa MD Primary Care Provider + [phone] Hernandez Marrero PAC Primary Care Provider + [phone] Sandra Pressley APRN, CARTRIDGE LOADING OPERATOR Primary Care P rovider Felix Kaiser MD Unavailable [phone] Kan Billings MD Unavailable [phone] Reason for Visit * Reason Comments Medication Refill Encounter Details Date Type Department Care Team (Late st Contact Info) Description 05/13/2021 Refill [facility] - Primary Care - [place] [address] [place] [address] Sandra Salas MD [address] [place] [address] Medication Refill Social History Tobacco [...] CDT Gender Identity Female 08/28/2023 1:03 PM NATURAL RESOURCE TECHNICIAN Sexual Orientation Straight 08/28/2023 1: 03 PM NATURAL RESOURCE TECHNICIAN documented as of this encounter Plan of Treatment Not on file documented as of this encounter Visit Diagnoses Diagnosis Essential hypertension Unspecified essential hypertension documented in this encounter Additional Health Concerns Infection Onset Date Last Indicated Resolved Time COVID - 19 11/17/2023 11/17/2023 11/17/2023 11:3 3 AM NATURAL RESOURCE TECHNICIAN COVID - 19 11/17/2023 11/17/2023 11/17/2023 11:3 8 AM NATURAL RESOURCE TECHNICIAN COVID - 19 11/17/2023 11/17/2023 11/17/2023 11:5 1 AM NATURAL RESOURCE TECHNICIAN COVID - 19 Confirmed 11/17/2023 11/17/2023 03 024 12:16 AM NATURAL RESOURCE TECHNICIAN Assessment Noted Time PHQ-9 Depression Total Score: 0 11/02/19 20 1:00 PM NATURAL RESOURCE TECHNICIAN documented as of this encounter Care Teams Matte Cutter Relationship Specialty Start Date End Date Sandra Salas MD PCP - General Family Medicine 09/16/15 01/19/23 Val Mustafa MD [address] [place] [address] PCP - General Family Medicine 01/24/23 12/09/23 Hernandez Marrero PAC [address] [place] [address] PCP - General Physician Vice President Global Digital Marketing 12/10/23 11/29/24 Sandra Pressley APRN, CARTRIDGE LOADING OPERATOR [address] [place] [address] PCP - General Advanced Practice Nurse 11/30/24 Felix Kaiser MD [address] [facility] [address] [place] [address] Consulting Physician Nephrology 12/21/24 Kan Billings MD [address] [place] [address] [place] [address] Consulting Physician Cardiovascular Disease - Cardiology 12/21/24 documented as of this encounter
[2025-06-02 15:32] LABS: Hematocrit 39.3 % (37.0-47.0); Hemoglobin 12.4 g/dL (12.0-15.0); Mean Corpuscular HGB Conc 31.6 g/dl (32-36); Mean Corpuscular Hemoglobin 29.5 pg (26-34); Mean Corpuscular Volume 93.3 fl (80-100); Platelet Count Result 156 k/mm3 (150-375); Red Blood Count 4.21 M/mm3 (4.2-5.4); White Blood Count 6.0 K/mm3 (4.5-10.0)
[2025-06-02 15:40] LABS: Albumin Level 4.1 g/dL (3.5-5.1); Anion Gap 6 mmol/L (4-12); Blood Urea Nitrogen 32 mg/dL (7-17); Calcium 9.2 mg/dL (8.4-10.2); Carbon Dioxide 30 mmol/L (22-30); Chloride 101 mmol/L (98-107); Estimated Glomerular Filt Rate 39; Glucose 95 mg/dL (65-110); Potassium 4.0 mmol/L (3.4-5.0); Sodium 137 mmol/L (137-145)
[2025-06-02 16:33] LABS: Parathyroid Intact 33.1 pg/mL (14.5-75.2)
[2025-06-02 17:27] LABS: Total Protein Urine Random 9 mg/dL
[2025-06-02 17:39] LABS: Ur Ttl Prot Creatinine Ratio 0.31 mg/mg (0-0.20)
== END 2025-06-02 15:07 | disposition home or self-care (01) ==
LOC: ANHLAB 15:07
PROVIDERS: Visit Provider Internal Medicine Nephrology
DX: N18.32 Chronic kidney disease, stage 3b (principal)
CPT/HCPCS: 36415; 80069; 82570; 83970; 84156; 85027

== ENCOUNTER 2025-06-17 10:20 | Outpatient (CLI) | payer MEDICARE, SELFPAY ==
[2025-06-17 11:12] LABS: Anion Gap 7 mmol/L (4-12); Blood Urea Nitrogen 31 mg/dL (7-17); Calcium 9.3 mg/dL (8.4-10.2); Carbon Dioxide 28 mmol/L (22-30); Chloride 103 mmol/L (98-107); Estimated Glomerular Filt Rate 43; Glucose 96 mg/dL (65-110); Potassium 4.3 mmol/L (3.4-5.0); Sodium 138 mmol/L (137-145)
--- OUTSIDE RECORDS SUMMARY | 2025-06-17 11:12 | XMS_ITS | Encounter Summary ---
Author Organization [facility] Address [address] [place] [address] Phone Care Team Providers Care Floor Worker Well Service Name Role Phone Sandra Salas MD Primary Care Provider + [phone] Val Mustafa MD Primary Care Provider + [phone] Hernandez Marrero PAC Primary Care Provider + [phone] Sandra Pressley APRN, TEA TASTER Primary Care P rovider Felix Kaiser MD Unavailable [phone] Kan Billings MD Unavailable [phone] Reason for Visit * Reason Comments Medication Refill Encounter Details Date Type Department Care Team (Late st Contact Info) Description 03/12/2022 Refill [facility] - Primary Care - [place] [address] [place] [address] Sandra Salas MD [address] [place] [address] Medication Refill Social History Tobacco [...] CDT Gender Identity Female 08/28/2023 1:03 PM PLATING FOREMAN Sexual Orientation Straight 08/28/2023 1: 03 PM PLATING FOREMAN documented as of this encounter Miscellaneous Notes * Telephone Encounter - Noeím Roper RN - 03/12/2022 8:45 AM CDT Refill request too soon. documented in this encounter Plan of Treatment Not on file documented as of this encounter Visit Diagnoses Diagnosis Hyperlipidemia, unspecified hyperlipidemia type documented in this encounter Additional Health Concerns Infection Onset Date Last Indicated Resolved Time COVID - 19 11/17/2023 11/17/2023 11/17/2023 11:3 3 AM PLATING FOREMAN COVID - 19 11/17/2023 11/17/2023 11/17/2023 11:3 8 AM PLATING FOREMAN COVID - 19 11/17/2023 11/17/2023 11/17/2023 11:5 1 AM PLATING FOREMAN COVID - 19 Confirmed 11/17/2023 11/17/2023 03//2 024 12:16 AM PLATING FOREMAN Assessment Noted Time PHQ-9 Depression Total Score: 0 11/02/19 20 1:00 PM PLATING FOREMAN documented as of this encounter Care Teams Floor Worker Well Service Relationship Specialty Start Date End Date Sandra Salas MD PCP - General Family Medicine 09/16/15 01/19/23 Val Mustafa MD [address] [place] [address] PCP - General Family Medicine 01/24/23 12/09/23 Hernandez Marrero, PAC [address] [place] [address] PCP - General Physician Quill Fixer 12/10/23 11/29/24 Sandra Pressley, HOIST WORKER, TEA TASTER [address] [place] [address] PCP - General Advanced Practice Nurse 11/30/24 Felix Kaiser MD [address] [facility] [address] [place] [address] Consulting Physician Nephrology 12/21/24 Kan Billings MD [address] [facility] [place] [address] Consulting Physician Cardiovascular Disease - Cardiology 12/21/24 documented as of this encounter
--- OUTSIDE RECORDS SUMMARY | 2025-06-17 11:12 | XMS_ITS | Encounter Summary ---
Author Organization [facility] Address [address] [place] [address] Phone Care Team Providers Care Career Education Teacher Name Role Phone Sandra Salas MD Primary Care Provider + [phone] Val Mustafa MD Primary Care Provider + [phone] Hernandez Marrero PAC Primary Care Provider + [phone] Sandra Pressley APRN, SUPERVISOR BODY ASSEMBLY Primary Care P rovider Felix Kaiser MD Unavailable [phone] Kan Billings MD Unavailable [phone] Reason for Visit * Reason Comments Medication Refill Encounter Details Date Type Department Care Team (Late st Contact Info) Description 06/11/2021 Refill [facility] - Primary Care - [place] [address] [place] [address] Sandra Salas MD [address] [place] [address] Medication Refill Social History Tobacco [...] CDT Gender Identity Female 08/28/2023 1:03 PM AUTHORIZATION NURSE Sexual Orientation Straight 08/28/2023 1: 03 PM AUTHORIZATION NURSE COVID-19 Exposure Response Date Recorded In [...] 19 11/17/2023 11/17/2023 11/17/2023 11:3 3 AM AUTHORIZATION NURSE COVID - 19 11/17/2023 11/17/2023 11/17/2023 11:3 8 AM AUTHORIZATION NURSE COVID - 19 11/17/2023 11/17/2023 11/17/2023 11:5 1 AM AUTHORIZATION NURSE COVID - 19 Confirmed 11/17/2023 11/17/2023 03/2 024 12:16 AM AUTHORIZATION NURSE Assessment Noted Time PHQ-9 Depression Total Score: 0 11/02/19 20 1:00 PM AUTHORIZATION NURSE documented as of this encounter Care Teams Career Education Teacher Relationship Specialty Start Date End Date Sandra Salas MD PCP - General Family Medicine 09/16/15 01/19/23 Val Mustafa MD [address] [place] [address] PCP - General Family Medicine 01/24/23 12/09/23 Hernandez Marrero, PAC [address] [place] [address] PCP - General Physician Sample Display Preparer 12/10/23 11/29/24 Sandra Pressley APRN, SUPERVISOR BODY ASSEMBLY [address] [place] [address] PCP - General Advanced Practice Nurse 11/30/24 Felix Kaiser MD [address] [facility] [address] [place] [address] Consulting Physician Nephrology 12/21/24 Kan Billings MD [address] [place] [address] [place] [address] Consulting Physician Cardiovascular Disease - Cardiology 12/21/24 documented as of this encounter
--- OUTSIDE RECORDS SUMMARY | 2025-06-17 11:12 | XMS_ITS | Encounter Summary ---
Author Organization [facility] Address [address] [place] [address] Phone Care Team Providers Care Grappler Name Role Phone Sandra Salas MD Primary Care Provider + [phone] Val Mustafa MD Primary Care Provider + [phone] Hernandez Marrero PAC Primary Care Provider + [phone] Sandra Pressley APRN, JET MECHANIC Primary Care P rovider Felix Kaiser MD Unavailable [phone] Kan Billings MD Unavailable [phone] Reason for Visit * Reason Comments Medication Refill Encounter Details Date Type Department Care Team (Late st Contact Info) Description 09/14/[address] [facility] - Primary Care - [place] [address] [place] [address] Sandra Salas MD [address] [place] [address] Medication Refill Social History Tobacco [...] CDT Gender Identity Female 08/28/2023 1:03 PM GIFTED TEACHER Sexual Orientation Straight 08/28/2023 1: 03 PM GIFTED TEACHER documented as of this encounter Miscellaneous Notes * Telephone Encounter - Flavia Bañuelos, [facility] - 09/14/2020 7:53 AM CST Medication [...] 3 months ago Essential hypertension [facility] Sandra Salas MD 10 months ago Essential hypertension [facility] Sandra Multani MD 1 year ago [facility] 2 years ago Acute sinusitis, recurrence not specified, unspecified location [facility] Sandra Bautista MD 2 years ago Essential hypertension [facility] Sandra Bautista MD Upcoming Appointments Future Appointments In 2 months [facility] In 2 months Sandra Salas MD [facility] TOP TAPER MACHINE - Recent and Past Visits Recent Visits Date Type Provider Dept 05/18/20 Office Visit Sandra Salas MD [facility] [place] [address] 11/02/19 Office Visit Sandra Salas MD [facility] Showing recent visits within past 460 days with a meds authorizing provider and meeting all other requirements Future Appointments Date Type Provider Dept 11/20/20 Appointment Sandra Salas MD [facility] Showing future appointments within next 90 days with a meds authorizing provider and meeting all other requirements ED TEACHER documented in this encounter Plan of Treatment Not on file documented as of this encounter Visit Diagnoses Diagnosis Anxiety Anxiety state, unspecified documented in this encounter Additional Health Concerns Infection Onset Date Last Indicated Resolved Time COVID - 19 10/04/2020 10/04/2020 10/06/2020 12:4 5 PM GIFTED TEACHER COVID - 19 11/17/2023 11/17/2023 11/17/2023 11:3 3 AM GIFTED TEACHER COVID - 19 11/17/2023 11/17/2023 11/17/2023 11:3 8 AM GIFTED TEACHER COVID - 19 11/17/2023 11/17/2023 11/17/2023 11:5 1 AM GIFTED TEACHER COVID - 19 Confirmed 11/17/2023 11/17/2023 03// 024 12:16 AM GIFTED TEACHER Assessment Noted Time PHQ-9 Depression Total Score: 0 11/02/19 20 1:00 PM GIFTED TEACHER documented as of this encounter Care Teams Grappler Relationship Specialty Start Date End Date Sandra Salas MD PCP - General Family Medicine 09/16/15 01/19/23 Val Mustafa MD [address] [place] [id number] PCP - General Family Medicine 01/24/23 12/09/23 Hernandez Marrero, PAC [address] [place] [address] PCP - General Physician Reproductive Healthcare Assistant 12/10/23 11/29/24 Sandra Pressley APRN, JET MECHANIC [address] [place] [address] PCP - General Advanced Practice Nurse 11/30/24 Felix Kaiser MD [address] [facility] [address] [place] [address] Consulting Physician Nephrology 12/21/24 Kan Billings MD [address] [place] [address] [address] Consulting Physician Cardiovascular Disease - Cardiology 12/21/24 documented as of this encounter
--- OUTSIDE RECORDS SUMMARY | 2025-06-17 11:12 | XMS_ITS | Encounter Summary ---
Author Organization [facility] Address [address] [place] [address] Phone Care Team Providers Care District Commercial Superintendent Name Role Phone Hernandez Marrero Primary Care Provider [phone] Sandra Pressley APRN, CIVIL PREPAREDNESS TRAINING OFFICER Primary Care P rovider Felix Kaiser MD Unavailable [phone] Kan Billings MD Unavailable Reason for Visit * Reason Comments Medication Refill Encounter Details Date Type Department Care Team (Late st Contact Info) Description 02/03/2024 Refill [facility] - Primary Care - [place] [address] [place] [address] Val Mustafa MD [address] [place] [address] Medication Refill Social History Tobacco [...] CDT Gender Identity Female 08/28/2023 1:03 PM CELL TECHNICIAN Sexual Orientation Straight 08/28/2023 1: 03 PM CELL TECHNICIAN documented as of this encounter Miscellaneous Notes * Telephone Encounter - Elena Putnam RN - 02/04/2024 9:05 AM CDT Medication(s) refilled and signed per [facility] Chronic Medication Refill Standing Order for Pediatricand Adult Patients. Requested Prescriptions Pending Prescriptions Disp Refills metoprolol Succinate (TOPROL-XL) 100 MG TABLET SR 24 HR [Pharmacy Med Name: METOPROLOL ER [id number]] 90 Tablet 1 Sig: TAKE 1 [...] Dept 11/17/23 Office Visit Hernandez Marrero PAC [facility] 09/08/23 Office Visit Val Mustafa MD [facility] Showing recent visits within past 365 [...] Depression Total Score: 0 11/17/19 10:49 AM CELL TECHNICIAN documented as of this encounter Care Teams District Commercial Superintendent Relationship Specialty Start Date End Date Hernandez Marrero, PAC [address] [place] [id number] PCP - General Physician Water/Wastewater Project Manager 12/10/23 11/29/24 Sandra Pressley CONE WINDER, CIVIL PREPAREDNESS TRAINING OFFICER [address] [place] [address] PCP - General Advanced Practice Nurse 11/30/24 Felix Kaiser MD [address] [place] [address] Consulting Physician Nephrology 12/21/24 Kan Billings MD [address] [place] [address] [address] Consulting Physician Cardiovascular Disease - Cardiology 12/21/24 documented as of this encounter
--- OUTSIDE RECORDS SUMMARY | 2025-06-17 11:12 | XMS_ITS | Encounter Summary ---
Author Organization [facility] Address [address] [place] [address] Phone Care Team Providers Care Manager Of Change Name Role Phone Hernandez Marrero Primary Care Provider Sandra Pressley APRN, ASSISTANT EDUCATION DIRECTOR Primary Care P rovider Felix Kaiser MD Unavailable [phone] Kan Billings MD Unavailable Reason for Visit * Reason Comments Medication Refill Encounter Details Date Type Department Care Team (Late st Contact Info) Description 12/10/2023 Refill [facility] - Primary Care - [place] [address] [place] [address] Val Mustafa MD [address] [place] [address] Medication Refill Social History Tobacco [...] CDT Gender Identity Female 08/28/2023 1:03 PM AUTOMOTIVE INTERNET SALES CONSULTANT Sexual Orientation Straight 08/28/2023 1: 03 PM AUTOMOTIVE INTERNET SALES CONSULTANT documented as of this encounter Plan of Treatment Not on file documented as of this encounter Visit Diagnoses Not on filedocumented in this encounter Additional Health Concerns Assessment Noted Time PHQ-9 Depression Total Score: 0 11/17/19 10:49 AM AUTOMOTIVE INTERNET SALES CONSULTANT documented as of this encounter Care Teams Manager Of Change Relationship Specialty Start Date End Date Hernandez Marrero, PAC [address] [place] [address] PCP - General Physician Hide Cooking Operator 12/10/23 11/29/24 Sandra Pressley APRN, ASSISTANT EDUCATION DIRECTOR [address] [place] [address] PCP - General Advanced Practice Nurse 11/30/24 Felix Kaiser MD [address] [facility] [address] [place] [address] Consulting Physician Nephrology 12/21/24 Kan Billings MD [address] [place] [address] DR LAM[address] [place] [address] Consulting Physician Cardiovascular Disease - Cardiology 12/21/24 documented as of this encounter
--- OUTSIDE RECORDS SUMMARY | 2025-06-17 11:12 | XMS_ITS | Encounter Summary ---
Author Organization [facility] Address [address] [place] [address] Phone Care Team Providers Care Education Reviewer Name Role Phone Sandra Salas MD Primary Care Provider + [phone] Val Mustafa MD Primary Care Provider + [phone] Hernandez Marrero PAC Primary Care Provider + [phone] Sandra Pressley APRN, INSIDE METER TESTER Primary Care P rovider Felix Kaiser MD Unavailable [phone] Kan Billings MD Unavailable [phone] Reason for Visit * Reason Comments Medication Refill Encounter Details Date Type Department Care Team (Late st Contact Info) Description 09/13/[address] [facility] - Primary Care - [place] [address] [place] [address] Sandra Salas MD [address] [place] [address] Medication Refill Social History Tobacco [...] CDT Gender Identity Female 08/28/2023 1:03 PM GUNNER'S MATE G Sexual Orientation Straight 08/28/2023 1: 03 PM GUNNER'S MATE G COVID-19 Exposure Response Date Recorded In the last month, have you been in contact with someone who was confirmed or suspected to have Coronavirus / COVID-19? No / Unsure 09/12/2021 11:02 AM GUNNER'S MATE G documented as of this encounter Miscellaneous Notes * Telephone Encounter - Elena Putnam RN - 09/13/2021 11:37 AM CST lisinopril-hydroCHLOROthiazide (PRINZIDE, ZESTORETIC) 20-25 MG Tablet 90 Tablet 1 06/14/2021 ER'S MATE G documented in this encounter Plan of Treatment Not on file documented as of this encounter Visit Diagnoses Not on filedocumented in this encounter Additional Health Concerns Infection Onset Date Last Indicated Resolved Time COVID - 19 11/17/2023 11/17/2023 11/17/2023 11:3 3 AM GUNNER'S MATE G COVID - 19 11/17/2023 11/17/2023 11/17/2023 11:3 8 AM GUNNER'S MATE G COVID - 19 11/17/2023 11/17/2023 11/17/2023 11:5 1 AM GUNNER'S MATE G COVID - 19 Confirmed 11/17/2023 11/17/2023 03/2 024 12:16 AM GUNNER'S MATE G Assessment Noted Time PHQ-9 Depression Total Score: 0 11/02/19 20 1:00 PM GUNNER'S MATE G documented as of this encounter Care Teams Education Reviewer Relationship Specialty Start Date End Date Sandra Salas MD PCP - General Family Medicine 09/16/15 01/19/23 Val Mustafa MD [address] [place] [address] PCP - General Family Medicine 01/24/23 12/09/23 Hernanedz Marrero, PAC [address] [place] [address] PCP - General Physician Planer Mill Grader 12/10/23 11/29/24 Sandra Pressley APRN, INSIDE METER TESTER [address] [place] [address] PCP - General Advanced Practice Nurse 11/30/24 Felix Kaiser MD [address] [facility] [address] [place] [address] Consulting Physician Nephrology 12/21/24 Kan Billings MD [address] [place] [address] [place] [address] Consulting Physician Cardiovascular Disease - Cardiology 12/21/24 documented as of this encounter
--- OUTSIDE RECORDS SUMMARY | 2025-06-17 11:12 | XMS_ITS | Encounter Summary ---
Author Organization [facility] Address [address] [place] [address] Phone Care Team Providers Care Jai Alai Player Name Role Phone JanesIsaijose JEAN-BAPTISTE Primary Care Provider Sandra Pressley APRN, VINICIO Primary Care P rovider Felix Kaiser MD Unavailable [phone] Kan Billings MD Unavailable Reason for Visit * Reason Comments Medication Refill Encounter Details Date Type Department Care Team (Late st Contact Info) Description 12/10/2023 Refill [facility] - Primary Care - [place] [address] [place] [address] Sandra Pressley APRN, DRUM BARKER OPERATOR [address] [place], [place] [id number] Medication Refill Social History Tobacco Use Types [...] CDT Gender Identity Female 08/28/2023 1:03 PM WRITER EDITOR Sexual Orientation Straight 08/28/2023 1: 03 PM WRITER EDITOR documented as of this encounter Plan of Treatment Not on file documented as of this encounter Visit Diagnoses Diagnosis Hyperlipidemia, unspecified hyperlipidemia type documented in this encounter Additional Health Concerns Assessment Noted Time PHQ-9 Depression Total Score: 0 11/17/19 10:49 AM WRITER EDITOR documented as of this encounter Care Teams Jai Alai Player Relationship Specialty Start Date End Date Hernandez Marrero PAC [address] [place] [address] PCP - General Physician Phlebotomy Services Representative 12/10/23 11/29/24 Sandra Pressley APRN, DRUM BARKER OPERATOR [address] [place] [address] PCP - General Advanced Practice Nurse 11/30/24 Felix Kaiser MD [address] [facility] [address] [place] [address] Consulting Physician Nephrology 12/21/24 Kna Billings MD [address] [place] [address] DR LAM[address] [place] [address] Consulting Physician Cardiovascular Disease - Cardiology 12/21/24 documented as of this encounter
--- OUTSIDE RECORDS SUMMARY | 2025-06-17 11:12 | XMS_ITS | Encounter Summary ---
Author Organization [facility] Address [address] [place] [address] Phone Care Team Providers Care Enterprise Software Engineer Name Role Phone Sandra Salas MD Primary Care Provider + [phone] Val Mustafa MD Primary Care Provider + [phone] Hernandez Marrero PAC Primary Care Provider + [phone] Sandra Pressley APRN, SOAP PRESS FEEDER Primary Care P rovider Felix Kaiser MD Unavailable [phone] Kan Billings MD Unavailable [phone] Reason for Visit * Reason Comments Medication Refill Encounter Details Date Type Department Care Team (Late st Contact Info) Description 11/12/2021 Refill [facility] - Primary Care - [place] [address] [place] [address] Sandra Salas MD [address] [place] [address] Medication Refill Social History Tobacco [...] CDT Gender Identity Female 08/28/2023 1:03 PM SUBWAY REPAIR SUPERVISOR Sexual Orientation Straight 08/28/2023 1: 03 PM SUBWAY REPAIR SUPERVISOR documented as of this encounter Miscellaneous Notes * Telephone Encounter - Noemí Roper RN - 11/12/2021 1:01 PM SUBWAY REPAIR SUPERVISOR Refill requested too soon. AY REPAIR SUPERVISOR documented in this encounter Plan of Treatment Not on file documented as of this encounter Visit Diagnoses Diagnosis Essential hypertension Unspecified essential hypertension Hyperlipidemia, unspecified hyperlipidemia type documented in this encounter Additional Health Concerns Infection Onset Date Last Indicated Resolved Time COVID - 19 11/17/2023 11/17/2023 11/17/2023 11:3 3 AM SUBWAY REPAIR SUPERVISOR COVID - 19 11/17/2023 11/17/2023 11/17/2023 11:3 8 AM SUBWAY REPAIR SUPERVISOR COVID - 19 11/17/2023 11/17/2023 11/17/2023 11:5 1 AM SUBWAY REPAIR SUPERVISOR COVID - 19 Confirmed 11/17/2023 11/17/202312/06/ 024 12:16 AM SUBWAY REPAIR SUPERVISOR Assessment Noted Time PHQ-9 Depression Total Score: 0 11/02/19 20 1:00 PM SUBWAY REPAIR SUPERVISOR documented as of this encounter Care Teams Enterprise Software Engineer Relationship Specialty Start Date End Date Sandra Salas MD PCP - General Family Medicine 09/16/15 01/19/23 Val Mustafa MD [address] [place] [address] PCP - General Family Medicine 01/24/23 12/09/23 Hernandez Marrero, PAC [address] [place] [address] PCP - General Physician Produce Shipper 12/10/23 11/29/24 Sandra Pressley APRN, SOAP PRESS FEEDER [address] [place] [address] PCP - General Advanced Practice Nurse 11/30/24 Felix Kaiser MD [address] [facility] [address] [place] [address] Consulting Physician Nephrology 12/21/24 Kan Billings MD [address] [place] [address] [place] [address] Consulting Physician Cardiovascular Disease - Cardiology 12/21/24 documented as of this encounter
--- OUTSIDE RECORDS SUMMARY | 2025-06-17 11:12 | XMS_ITS | Encounter Summary ---
Author Organization [facility] Address [address] [place] [address] Phone Care Team Providers Care Pit Clerk Name Role Phone Sandra Salas MD Primary Care Provider + [phone] Val Mustafa MD Primary Care Provider + [phone] Hernandez Marrero PAC Primary Care Provider + [phone] Sandra Pressley APRN, LOST CHARGE CARD CLERK Primary Care P rovider Felix Kaiser MD Unavailable [phone] Kan Billings MD Unavailable [phone] Reason for Visit * Reason Comments Medication Refill Encounter Details Date Type Department Care Team (Late st Contact Info) Description 11/13/2021 Refill [facility] - Primary Care - [place] [address] [place] [address] Sandra Salas MD [address] [place] [address] Medication Refill Social History Tobacco [...] Gender Identity Female 08/28/2023 1:03 PM MACHINE BUNCH MAKER Sexual Orientation Straight 08/28/2023 1: 03 PM MACHINE BUNCH MAKER documented as of this encounter Miscellaneous [...] Provider Dept 09/12/21 Office Visit Sandra Pressley, PATIENT SAFETY OFFICER, LOST CHARGE CARD CLERK [facility] 06/04/21 Office Visit Sandra Salas MD [facility] 11/28/20 Office Visit Sandra Pressley APRN, LOST CHARGE CARD CLERK [facility] Showing recent visits within past 365 days and meeting all other requirements Future Appointments Date Type Provider Dept 12/04/21 Appointment David Ruiz [facility] 12/11/21 Appointment Sandra Salas MD [facility] Showing future appointments within next 90 days and meeting all other requirements Passed - GFR on record in past 12 months GFR, EST. NONAFRICAN Date Value Ref Range Status 05/28/2021 40 (L) >=60 Final INE BUNCH MAKER documented in this encounter Plan of Treatment Not on file documented as of this encounter Visit Diagnoses Not on filedocumented in this encounter Additional Health Concerns Infection Onset Date Last Indicated Resolved Time COVID - 19 11/17/2023 11/17/2023 11/17/2023 11:3 3 AM MACHINE BUNCH MAKER COVID - 19 11/17/2023 11/17/2023 11/17/2023 11:3 8 AM MACHINE BUNCH MAKER COVID - 19 11/17/2023 11/17/2023 11/17/2023 11:5 1 AM MACHINE BUNCH MAKER COVID - 19 Confirmed 11/17/2023 11/17/2023 024 12:16 AM MACHINE BUNCH MAKER Assessment Noted Time PHQ-9 Depression Total Score: 0 11/02/19 20 1:00 PM MACHINE BUNCH MAKER documented as of this encounter Care Teams Pit Clerk Relationship Specialty Start Date End Date Sandra Salas MD PCP - General Family Medicine 09/16/15 01/19/23 Val Mustafa MD [address] [place] [address] PCP - General Family Medicine 01/24/23 12/09/23 Hernandez Marrero PAC [address] [place] [address] PCP - General Physician Labeling Associate 12/10/23 11/29/24 Sandra Pressley APRN, LOST CHARGE CARD CLERK [address] [place] [address] PCP - General Advanced Practice Nurse 11/30/24 Felix Kaiser MD [address] [facility] [address] [place] [address] Consulting Physician Nephrology 12/21/24 Kan Billings MD [address] [place] [address] [address] LAMB [address] [place] [address] Consulting Physician Cardiovascular Disease - Cardiology 12/21/24 documented as of this encounter
--- OUTSIDE RECORDS SUMMARY | 2025-06-17 11:12 | XMS_ITS | Encounter Summary ---
Author Organization [facility] Address [address] [place] [address] Phone Care Team Providers Care Valve Setter Name Role Phone Sandra Salas MD Primary Care Provider + [phone] Val Mustafa MD Primary Care Provider + [phone] Hernandez Marrero PAC Primary Care Provider + [phone] Sandra Pressley APRN, PRESSFITTER Primary Care P rovider Felix Kaiser MD Unavailable [phone] Kna Billings MD Unavailable [phone] Reason for Visit * Reason Comments Medication Refill Encounter Details Date Type Department Care Team (Late st Contact Info) Description 06/13/2021 Refill [facility] - Primary Care - [place] [address] [place] [address] Sandra Salas MD [address] [place] [address] Medication Refill Social History Tobacco [...] CDT Gender Identity Female 08/28/2023 1:03 PM CRUISE AGENT Sexual Orientation Straight 08/28/2023 1: 03 PM CRUISE AGENT COVID-19 Exposure Response Date Recorded In the [...] Dept 06/04/21 Office Visit Sandra Salas MD [facility] 11/28/20 Office Visit Sandra Pressley SHOP TAILOR, PRESSFITTER [facility] Showing recent visits within past [...] 19 11/17/2023 11/17/2023 11/17/2023 11:3 3 AM CRUISE AGENT COVID - 19 11/17/2023 11/17/2023 11/17/2023 11:3 8 AM CRUISE AGENT COVID - 19 11/17/2023 11/17/2023 11/17/2023 11:5 1 AM CRUISE AGENT COVID - 19 Confirmed 11/17/2023 11/17/2023 03// 024 12:16 AM CRUISE AGENT Assessment Noted Time PHQ-9 Depression Total Score: 0 11/02/19 20 1:00 PM CRUISE AGENT documented as of this encounter Care Teams Valve Setter Relationship Specialty Start Date End Date Sandra Salas MD PCP - General Family Medicine 09/16/15 01/19/23 Val Mustafa MD [address] [place] [address] PCP - General Family Medicine 01/24/23 12/09/23 Hernandez Marrero, PAC [address] [place] [address] PCP - General Physician Real Estate Financial Analyst 12/10/23 11/29/24 Sandra Pressley APRN, PRESSFITTER [address] [place] [address] PCP - General Advanced Practice Nurse 11/30/24 Felix Kaiser MD [address] [facility] [address] [place] [address] Consulting Physician Nephrology 12/21/24 Kan Billings MD [address] [facility] [place] [address] Consulting Physician Cardiovascular Disease - Cardiology 12/21/24 documented as of this encounter
--- OUTSIDE RECORDS SUMMARY | 2025-06-17 11:12 | XMS_ITS | Clinical Summary ---
Author Organization [facility] Address [address] [address] Phone Care Team Providers Care Bottle Tester Name Role Phone Sandra Pressley APRN, VINICIO Primary Care P romaricelder Felix Kaiser MD Unavailable [phone] Kan Billings MD Unavailable [phone] Allergies Active Allergy Reactions Criticality Noted Date [...] Type Department Care Team Description 04/24/2025 Refill [facility] - Primary Care - [place] [address] [place] [address] Hernandez Marrero, PAC Medication Refill from Last [...] pur e alcohol) occassionally glass of wine [employer] Answer Date Recorded In the past 12 months has [employer], [employer], oil, or water [employer] threatened to shut off services in your [...] week 11/30/2024 How often do you attend [facility] or baptism services? More than 4 times per year 11/30/2024 Do you belong to any clubs o r organizations such as restoration groups, unions, fraternal or athletic groups, or [...] Total Score - Questions 1-9 0 12/04 [facility] - Occupational Stress Questionnaire Answer Date [...] any time in the past 12 m [facility], were you homeless or living in a long-term (including now)? No 11/30/2024 Education Answer Date Recorded What is the highest level of school you have completed or the highest degree you have received? Some college, no degree 11/18/2020 Comments No Sex and Gender Information Value Date Recorded Sex Assigned at Not on file Legal Sex Female 8:49 PM CDT Gender Identity Female 08/28/2023 1:03 PM CIRCULAR SAW EDGE FUSER Sexual Orientation Straight 08/28/2023 1: 03 PM CIRCULAR SAW EDGE FUSER Last Filed Vital Signs Vital Sign Reading [...] Cologuard 1987 Immunochemical Fecal Occult Blood 1987 Influenza Immunization (#1) 2025 01/0 12/2024, 09/08/2023, 07/23/2022, Additional history exists SARS-COV-2 Immunization ( season) 2025 10/05/2021, 12/14/2020, 11/16/2020 Colonoscopy 06/21/2025 06/21/2015 Colorectal Cancer Screening 06/21/2025 [...] HEPATITIS C ANTIBODY Routine 09/08/2023 9:32 AM CIRCULAR SAW EDGE FUSER Encounter for hepatitis C screening test for low risk patient PAIGE BONE DENSITOMETRY AXIAL SKELETON Routine 12/13/2020 Postmenopausal HM COLONOSCOPY Routine 06/21/2015 from Last 3 Months or Most Recently Relevant to Health Maintenance Results * HEPATITIS C ANTIBODY (09/08/2023 9:32 AM CIRCULAR SAW EDGE FUSER) hepatitis C antibody 0.09 <1 S/CO [facility] ARCH [id number] B 09/08/2023 9:23 PM CIRCULAR SAW EDGE FUSER [facility] Comment: Signal/Cutoff ratio < 0.79 is Nondetected Signal/Cutoff ratio 0.80-0.99 is Grayzone Signal/Cutoff ratio > 0.99 is Detected Supplemental assays are recommended if signal/cutoff ratio is >/=1.00. Signal/cutoff ratio result >/= 5.00 is 97% predictive of positivity for recombinant immunoblot assay (RIBA) and will be reported to the [place] Department of Public Health as required. Blood Venipuncture / Unknown 09/08/2023 9:32 AM CIRCULAR SAW EDGE FUSER 09/08/2023 9:32 AM CIRCULAR SAW EDGE FUSER us Val Mustafa MD CHEMISTRY ORDERABLES Final R esult [facility] [address] [place] [address], * [facility] BONE DENSITOMETRY AXIAL SKELETON (12/13/2020) Anatomical Region Laterality Modality BODY N/A Other us Sandra Pressley HVAC TECHNICIAN RESIDENTIAL, PEOPLESOFT DEVELOPER IMG DEXA ORDERA BLES Final Result * COLONOSCOPY (06/21/2015) Sandra Salas MD PROCEDURE/MINOR SURGICAL ORD ERABLES Final Result from Last 3 Months or Most Recently Relevant to Health Maintenance Insurance MEDICARE C [employer] [facility] Advance Directives Documents on File Type Date Recorded Patient Va Underwriter Expl anation Advance Care Planning Discussion 11/26/2023 11:08 AM ACP Power of Real Estate Analyst for Health Care 11/26/2023 11:07 AM POA / HEALTH CARE Care Teams Bottle Tester Relationship Specialty Start Date End Date Sandra Pressley, HVAC TECHNICIAN RESIDENTIAL, PEOPLESOFT DEVELOPER [address] [place] [address] PCP - General Advanced Practice Nurse 11/30/24 Felix Kaiser MD [address] [place] [address] Consulting Physician Nephrology 12/21/24 Kan Billings MD [address] [facility] [address] LAM[address] [place] [address] Consulting Physician Cardiovascular Disease - Cardiology 12/21/24
--- OUTSIDE RECORDS SUMMARY | 2025-06-17 11:12 | XMS_ITS | Clinical Summary ---
Author Organization [facility] Address [address] [place] [address] Care Team Providers Care Expansion Joint Builder Name Role Phone Camiloaldentodd Blaze Crouch NP [...] Description 06/02/2025 8:00 AM CDT Office Visit [facility] Manager at [address] [place] [address] Rey Billings MD Primary hypertension [...] on file Legal Sex Female 12:26 AM SEPTIC PUMP TRUCK DRIVER Gender Identity Not on file Sexual Orientation [...] Scan 12/13/2022 12/13/2020, 12/13/2020, 12/13/2020 Covid-19 Vaccine (2024- 6 season) 2025 10/05/2021, 12/14/2020, 11/16/2020 Influenza Vaccine (#1) 2025 [...] Read Routine (OP Routine) 12/13/2020 10:06 AM SEPTIC PUMP TRUCK DRIVER Encounter for screening for osteoporosis from Last 3 Months or Most Recently Relevant to Health Maintenance Results * ECG 12 lead (06/02/2025 8:12 AM CDT) us Rey Billings MD ECG ORDERABLES Final Result * Dexa Axial Skeleton Bone Density 1 or 2 Site (12/13/2020 10:06 AM SEPTIC PUMP TRUCK DRIVER) Anatomical Region Laterality Modality Body N/A Other 12/13/2020 10:1 2 AM SEPTIC PUMP TRUCK DRIVER Impressions 12/13/2020 10:18 AM SEPTIC PUMP TRUCK DRIVER According to the World Health Organization criteria, [...] Akash Leyva M.D. Narrative 12/13/2020 10:18 AM SEPTIC PUMP TRUCK DRIVER COMPLETION DATE: 12/13/2020 9:30 AM ORDERING HEALTHCARE PROVIDER: BLAZE CALDERON DESCRIPTION: DEXA AXIAL SKELETON BONE DENSITY 1 OR MORE SITES CLINICAL INDICATIONS: Screening for osteoporosis. Parietal hip fracture, history of rheumatoid arthritis, no regular weightbearing exercise, drinks caffeinated beverages. Reported use of vitamin D. COMPARISON: None available TECHNIQUE: Dual x-ray absorptiometry (DEXA) was performed using [employer] system. GENERAL GUIDELINES: According to WHO guidelines, [...] Dual x-ray absorptiometry (DEXA) was performed using [employer] system. GENERAL GUIDELINES: According to WHO guidelines, [...] Electronically signed by: Akash Leyva M.D. Blaze Pressley NP IMG DXA PROCEDURES Fi nal Result from Last 3 Months or Most Recently Relevant to Health Maintenance Insurance MEDICARE ADVANTAGE MEDICARE ADVANTAGE [facility] MEDICARE ADVANTAGE Care Teams Expansion Joint Builder Relationship Specialty Start Date End Date Blaze Pressley NP [address] [place] [address] PCP - General Emergency Medicine 11/03/24
--- OUTSIDE RECORDS SUMMARY | 2025-06-17 11:12 | XMS_ITS | Encounter Summary ---
Author Organization [facility] Address [address] [place] [address] Phone Care Team Providers Care Heel Wheeler Name Role Phone Sandra Salas MD Primary Care Provider + [phone] Val Mustafa MD Primary Care Provider + [phone] Hernandez aMrrero PAC Primary Care Provider + [phone] Sandra Pressley APRN, FAMILY REUNIFICATION SPECIALIST Primary Care P rovider Felix Kaiser MD Unavailable [phone] Kan Billings MD Unavailable [phone] Reason for Visit * Reason Comments Medication Refill Encounter Details Date Type Department Care Team (Late st Contact Info) Description 05/13/2021 Refill [facility] - Primary Care - [place] [address] [place] [address] Sandra Salas MD [address] [place] [address] Medication Refill Social History Tobacco [...] CDT Gender Identity Female 08/28/2023 1:03 PM FURNITURE SERVICER Sexual Orientation Straight 08/28/2023 1: 03 PM FURNITURE SERVICER documented as of this encounter Plan of Treatment Not on file documented as of this encounter Visit Diagnoses Diagnosis Essential hypertension Unspecified essential hypertension documented in this encounter Additional Health Concerns Infection Onset Date Last Indicated Resolved Time COVID - 19 11/17/2023 11/17/2023 11/17/2023 11:3 3 AM FURNITURE SERVICER COVID - 19 11/17/2023 11/17/2023 11/17/2023 11:3 8 AM FURNITURE SERVICER COVID - 19 11/17/2023 11/17/2023 11/17/2023 11:5 1 AM FURNITURE SERVICER COVID - 19 Confirmed 11/17/2023 11/17/2023 03 024 12:16 AM FURNITURE SERVICER Assessment Noted Time PHQ-9 Depression Total Score: 0 11/02/19 20 1:00 PM FURNITURE SERVICER documented as of this encounter Care Teams Heel Wheeler Relationship Specialty Start Date End Date Sandra Salas MD PCP - General Family Medicine 09/16/15 01/19/23 Val Mustafa MD [address] [place] [address] PCP - General Family Medicine 01/24/23 12/09/23 Hernandez Marrero PAC [address] [place] [address] PCP - General Physician University Relations Vice President 12/10/23 11/29/24 Sandra Pressley APRN, FAMILY REUNIFICATION SPECIALIST [address] [place] [address] PCP - General Advanced Practice Nurse 11/30/24 Felix Kaiser MD [address] [facility] [address] [place] [address] Consulting Physician Nephrology 12/21/24 Kan Billings MD [address] [place] [address] [place] [address] Consulting Physician Cardiovascular Disease - Cardiology 12/21/24 documented as of this encounter
--- OUTSIDE RECORDS SUMMARY | 2025-06-17 11:12 | XMS_ITS | Encounter Summary ---
Author Organization [facility] Address [address] [place] [address] Phone Care Team Providers Care Campaign Coordinator Name Role Phone Sandra Salas MD Primary Care Provider + [phone] Val Mustafa MD Primary Care Provider + [phone] Hernandez Marrero PAC Primary Care Provider + [phone] Sandra Pressley APRN, POWER BUILDER DEVELOPER Primary Care P rovider Felix Kaiser MD Unavailable [phone] Kan Billings MD Unavailable [phone] Reason for Visit * Reason Comments Medication Refill Encounter Details Date Type Department Care Team (Late st Contact Info) Description 05/18/2021 Refill [facility] - Primary Care - [place] [address] [place] [address] Sandra Salas MD [address] [place] [address] Medication Refill Social History Tobacco [...] CDT Gender Identity Female 08/28/2023 1:03 PM DISK AND TAPE MACHINE TENDER Sexual Orientation Straight 08/28/2023 1: 03 PM DISK AND TAPE MACHINE TENDER documented as of this encounter Miscellaneous Notes [...] 19 11/17/2023 11/17/2023 11/17/2023 11:3 3 AM DISK AND TAPE MACHINE TENDER COVID - 19 11/17/2023 11/17/2023 11/17/2023 11:3 8 AM DISK AND TAPE MACHINE TENDER COVID - 19 11/17/2023 11/17/2023 11/17/2023 11:5 1 AM DISK AND TAPE MACHINE TENDER COVID - 19 Confirmed 11/17/2023 11/17/2023 024 12:16 AM DISK AND TAPE MACHINE TENDER Assessment Noted Time PHQ-9 Depression Total Score: 0 11/02/19 20 1:00 PM DISK AND TAPE MACHINE TENDER documented as of this encounter Care Teams Campaign Coordinator Relationship Specialty Start Date End Date Sandra Salas MD PCP - General Family Medicine 09/16/15 01/19/23 Val Mustafa MD [address] [place] [address] PCP - General Family Medicine 01/24/23 12/09/23 Hernandez Marrero, PAC [address] [place] [address] PCP - General Physician Middleware Developer 12/10/23 11/29/24 Sandra Pressley APRN, POWER BUILDER DEVELOPER [address] [place] [address] PCP - General Advanced Practice Nurse 11/30/24 Felix Kaiser MD [address] [facility] [address] [place] [address] Consulting Physician Nephrology 12/21/24 Kan Billings MD [address] [place] [address] [address] Consulting Physician Cardiovascular Disease - Cardiology 12/21/24 documented as of this encounter
--- OUTSIDE RECORDS SUMMARY | 2025-06-17 11:13 | XMS_ITS | Encounter Summary ---
Author Organization [facility] Address [address] [place] [address] Phone Care Team Providers Care Nail Expert Name Role Phone Sandra Salas MD Primary Care Provider + [phone] Val Mustafa MD Primary Care Provider + [phone] Hernandez Marrero PAC Primary Care Provider + [phone] Sandra Pressley APRN, CT TECH Primary Care P rovider Felix Kaiser MD Unavailable [phone] Kan Billings MD Unavailable [phone] Reason for Visit * Reason Comments Medication Refill Encounter Details Date Type Department Care Team (Late st Contact Info) Description 03/05/2022 Refill [facility] - Primary Care - [place] [address] [place] [address] Sandra Salas MD [address] [place] [address] Medication Refill Social History Tobacco [...] CDT Gender Identity Female 08/28/2023 1:03 PM SPINNING LATHE OPERATOR Sexual Orientation Straight 08/28/2023 1: 03 PM SPINNING LATHE OPERATOR documented as of this encounter Miscellaneous Notes * Telephone Encounter - Elnea Putnam RN - 03/06/2022 10:41 AM CDT [...] 19 11/17/2023 11/17/2023 11/17/2023 11:3 3 AM SPINNING LATHE OPERATOR COVID - 19 11/17/2023 11/17/2023 11/17/2023 11:3 8 AM SPINNING LATHE OPERATOR COVID - 19 11/17/2023 11/17/2023 11/17/2023 11:5 1 AM SPINNING LATHE OPERATOR COVID - 19 Confirmed 11/17/2023 11/17/2023 024 12:16 AM SPINNING LATHE OPERATOR Assessment Noted Time PHQ-9 Depression Total Score: 0 11/02/19 20 1:00 PM SPINNING LATHE OPERATOR documented as of this encounter Care Teams Nail Expert Relationship Specialty Start Date End Date Sandra Salas MD PCP - General Family Medicine 09/16/15 01/19/23 Val Mustafa MD [address] [place] [address] PCP - General Family Medicine 01/24/23 12/09/23 Hernandez Marrero PAC [address] [place] [address] PCP - General Physician Territory Sales Manager 12/10/23 11/29/24 Sandra Pressley, PRUNER, CT TECH [address] [place] [address] PCP - General Advanced Practice Nurse 11/30/24 Felix Kaiser MD [address] [facility] [address] [place] [address] Consulting Physician Nephrology 12/21/24 Kan Billings MD [address] [place] [address] [address] LAM[address] [place] [address] Consulting Physician Cardiovascular Disease - Cardiology 12/21/24 documented as of this encounter
--- OUTSIDE RECORDS SUMMARY | 2025-06-17 11:13 | XMS_ITS | Encounter Summary ---
Author Organization [facility] Address [address] [place] [address] Phone Care Team Providers Care Wood Room Hand Name Role Phone Sandra Salas MD Primary Care Provider + [phone] Val Mustafa MD Primary Care Provider + [phone] Hernandez Marrero PAC Primary Care Provider + [phone] Sandra Pressley APRN, GARDENER FLORIST Primary Care P rovider Felix Kaiser MD Unavailable [phone] Kan Billings MD Unavailable [phone] Reason for Visit * Reason Comments Medication Refill Encounter Details Date Type Department Care Team (Late st Contact Info) Description 01/01/2022 Refill [facility] - Primary Care - [place] [address] [place] [address] Sandra Salas MD [address] [place] [address] Medication Refill Social History Tobacco [...] CDT Gender Identity Female 08/28/2023 1:03 PM THERMAL CUTTING MACHINE OPERATOR Sexual Orientation Straight 08/28/2023 1: 03 PM THERMAL CUTTING MACHINE OPERATOR documented as of this encounter [...] 09/12/21 Office Visit Sandra Pressley APRN, VINICIO [facility] 06/04/21 Office Visit Sandra Salas MD [facility] Showing recent visits within past 365 days and meeting all other requirements Future Appointments Date Type Provider Dept 01/09/22 Appointment David, [facility] 01/17/22 Appointment Sandra Salas MD [facility] Showing future appointments within next 90 days and meeting all other requirements documented in this encounter Plan of Treatment Not on file documented as of this encounter Visit Diagnoses Diagnosis Anxiety Anxiety state, unspecified documented in this encounter Additional Health Concerns Infection Onset Date Last Indicated Resolved Time COVID - 19 11/17/2023 11/17/2023 11/17/2023 11:3 3 AM THERMAL CUTTING MACHINE OPERATOR COVID - 19 11/17/2023 11/17/2023 11/17/2023 11:3 8 AM THERMAL CUTTING MACHINE OPERATOR COVID - 19 11/17/2023 11/17/2023 11/17/2023 11:5 1 AM THERMAL CUTTING MACHINE OPERATOR COVID - 19 Confirmed 11/17/2023 11/17/2023 024 12:16 AM THERMAL CUTTING MACHINE OPERATOR Assessment Noted Time PHQ-9 Depression Total Score: 0 11/02/19 20 1:00 PM THERMAL CUTTING MACHINE OPERATOR documented as of this encounter Care Teams Wood Room Hand Relationship Specialty Start Date End Date Sandra Salas MD PCP - General Family Medicine 09/16/15 01/19/23 Val Mustafa MD [address] [place] [address] PCP - General Family Medicine 01/24/23 12/09/23 Hernandez Marrero, PAC [address] [place] [address] PCP - General Physician Goodwill Ambassador 12/10/23 11/29/24 Sandra Pressley, TRAVEL AGENT, GARDENER FLORIST [address] [place] [address] PCP - General Advanced Practice Nurse 11/30/24 Felix Kaiser MD [address] [place] [address] Consulting Physician Nephrology 12/21/24 ManuelitoKan martino MD 2 [facility] [address] [address] Consulting Physician Cardiovascular Disease - Cardiology 12/21/24 documented as of this encounter
== END 2025-06-17 10:21 | disposition home or self-care (01) ==
PROVIDERS: Visit Provider Internal Medicine Nephrology
DX: N18.32 Chronic kidney disease, stage 3b (principal)
CPT/HCPCS: 36415; 80048

== ENCOUNTER 2025-06-23 00:19 | Day surgery (SDC) | payer MEDICARE, SELFPAY ==
--- NOTE | 2025-05-25 10:10 | PC.NURSE ---
Report to the Outpatient Waiting Room, entrance under the green pavilion located off [facility], at time _6 AM on date __06/23/25 . Planned Procedure Time: _7:30AM .? Time changes happen often and if your time is changed the preop area will call you the afternoon before. - You and your visitor will be asked to self-screen and do not enter if you have any COVID symptoms. Please call surgeon if you need to reschedule. - A mask is optional within the hospital at this time. Patients may have clear liquids (water, carbonated beverages, clear teas, apple juice) until 3 hours prior to surgery ( 4:30 AM)with a maximum of 20 ounces. - No food from midnight until time of surgery and no smoking, or chewing tobacco (or any form of nicotine). No chewing gum, candy or mints. - Take only the following medications with a SIP of water on the morning of surgery: __METOPROLOL, LORAZEPAM DO NOT STOP ANY OF YOUR OTHER PRESCRIPTION MEDICATIONS PRIOR TO SURGERY EXCEPT THE FOLLOWING Hold all vitamins and supplements for 3 days per anesthesiologist. LAST DOSE 06/19/25 Medications to discontinue per physician _HOLD ASPIRIN 7 DAYS PRE OP PER DR PEARSON LAST DOSE 06/15/25 Please no make-up, nail sri lankan, hairspray, perfume, deodorant, or body powder the day of surgery.? No jewelry (including any body piercings) or valuables the day of surgery, leave them at home.? Please take a shower or bath the night before, or the morning of, surgery with an antibacterial soap.? Wear comfortable, loose fitting clothing.? Children are encouraged to wear pajamas. - Jewelry must be removed prior to entering the operating room.? Rings and piercings that are not removed may be cut off. - The hospital will not accept responsibility for valuables.? - Please leave all valuables, including medications, at home the day of surgery. If you are going home after surgery, a licensed trailer truck driver must drive you home.? - NO public transportation without another adult if you receive anesthesia. - We recommend that an adult stay with you for 24 hours following discharge. - We also recommend that you do not drive, make important decision, drink alcoholic beverages, or take any drugs that were not prescribed by your health care provider for at least 24 hours after your discharge time. For Pediatric surgeries, we recommend two adults accompany the child home. Follow any additional instructions given to you from your surgeon. VERBAL AND WRITTEN instructions given to ___PATIENT and asked if any additional questions and then verbalized understanding. Patient advised to call surgeon office or pre surgery nurse liaison [phone] if any additional questions.
[2025-05-25 10:25] VITALS: BMI 39.5
[2025-05-25 11:10] VITALS: BP 143/71; PULSE 61; RESP 18; TEMP 36.3; O2SAT 97
--- OUTSIDE RECORDS SUMMARY | 2025-06-22 09:15 | XMS_ITS | Encounter Summary ---
Author Organization [facility] Address [address] [place] [address] Phone Care Team Providers Care Urban Planner Name Role Phone Sandra Pressley APRN, SENIOR TECHNICAL ANALYST Primary Care P rovider Felix Kaiser MD Unavailable [phone] Kan Billings MD Unavailable [phone] Reason for Visit * Reason Comments New Patient Wax removal * Consult, Test & Initiate Treatment (Less Than 3 Days) - Closed Specialty Diagnoses / Procedures Referred By Contpop t Referred To Contact Diagnoses Bilateral impacted cerumen Sandra Pressley APRN, SENIOR TECHNICAL ANALYST [address] [place] [address] Phone: tel: fax: [facility] - [facility], Nose & Throat - [place] [address] [place] [address] Phone: tel: fax: Referral ID Status Reason Start Date Expiration Date Visits Re quested Visits Authorized [id number] Closed 06/20/2025 1 1 Encounter Details Date Type Department Care Team (Late st Contact Info) Description 06/22/2025 9:15 AM CDT Office Visit [facility] - [facility], [facility]ose & Th[facility]at - [place] [address] [address] Sandra Pressley, DOCUMENT MANAGEMENT ANALYST, SENIOR TECHNICAL ANALYST [address] [place] [address] Cameron Recio MD [address] [address] Impacted cerumen of both ears (Primary Dx); Vasomotor rhinitis; Nasal congestion; Posterior rhinorrhea Discharge Disposition: Discharged to home or Selfcare Social History Tobacco Use Types Packs/Day Years Used Date Smoking Tobacco: Never Smokeless Tobacco: Never Alcohol Use Standard Drinks/Week Comments Not Currently 0 (1 standard drink = 0.6 oz pur e alcohol) occassionally glass of wine [facility] Utilities Answer Date Recorded In the past 12 months has [employer] electric, gas, oil, or water company threatened [...] 11/30/2024 How often do you attend chur or protestant services? More than 4 times per year 11/30/2024 Do you belong to any clubs o r organizations such as hinduism groups, unions, fraternal or athletic groups, or [...] Total Score - Questions 1-9 0 12/04 [employer] - Occupational Stress [...] time in the past 12 m [facility], were you homeless or living in a retirement (including now)? No 11/30/2024 Education Answer Date Recorded What is the highest level of school you have completed or the highest degree you have received? Some college, no degree 11/18/2020 Comments No Sex and Gender Information Value Date Recorded Sex Assigned at Not on file Legal Sex Female 8:49 PM CDT Gender Identity Female 08/28/2023 1:03 PM TOE SEWER Sexual Orientation Straight 08/28/2023 1: 03 PM TOE SEWER documented as of this encounter Last Filed Vital Signs Vital Sign Reading Time Taken Comments Blood Pressure 124/76 06/22/2025 9:21 AM CDT Pulse 70 06/22/2025 9:21 AM CDT Temperature - - Respiratory Rate 18 06/22/2025 9:21 AM CDT Oxygen Saturation 98% 06/22/2025 9:21 AM CDT Inhaled Oxygen Concentration - - Weight 94.3 kg (208 lb) 06/22/2025 9:21 AM CDT Height 160 cm (5' 3) 06/22/2025 9:21 AM CDT Body Mass Index 36.85 06/22/2025 9:21 AM CDT documented in this encounter Progress Notes * Cameron Recio MD - 06/22/2025 9:15 AM CDT Primary Care Provider: Sandra Pressley APRN, CNP Chief Complaint: No chief complaint on file. HPI: History of Present Illness The patient is a female who presents for evaluation of hearing loss and runny nose. She reports a decrease in her hearing ability, which was confirmed by her flake or shred roll operator who noted an inability to visualize her eardrum, particularly on the left side. The right ear also has some cerumen impaction. She uses hearing aids. She also experiences a runny nose, especially during meals, which she attributes to aging. She occasionally takes rlqz-hmq-ncowbot sinus medication when she experiences nasal drainage but does not use it daily due to concerns about potential side effects such as high blood pressure. She is scheduled for a right shoulder replacement surgery tomorrow morning due to arthritis. She also has arthritis in her neck. Tobacco History Tobacco Use History[1] Past Medical History Past Medical History Positives Diagnosis Date Endometriosis Hypertension Past Surgical History Past Surgical History[2] Social History Social History Socioeconomic History Marital status: Spouse name: Not on file Number of children: Not on file Years of education: Not on file Highest education level: Some college, no degree Occupational History Not on file Tobacco Use Smoking status: Never Smokeless tobacco: Never Vaping Use Vaping status: Never Used Substance and Sexual Activity Alcohol use: Not Currently Comment: occassionally glass of wine Drug use: No Sexual activity: Not on file Other Topics Concern Not on file Social History Narrative Not on file Social Drivers of Health Financial Resource Needs: Low Risk (11/30/2024) Overall Financial Resource Strain (CARDIA) Difficulty of Paying Living Expenses: Not very hard Food Insecurity Needs: No Food Insecurity (11/30/2024) Hunger Vital Sign Worried About Running Out of Food in the Last Year: Never true Ran Out of Food in the Last Year: Never true Transportation Needs: No Transportation Needs (11/30/2024) PRAPARE - Transportation Lack of Transportation (Medical): No Lack of Transportation (Non-Medical): No Physical Activity: Inactive (11/30/2024) Exercise Vital Sign Days of Exercise per Week: 0 days Minutes of Exercise per Session: 0 min Stress: No Stress Concern Present (11/30/2024) [employer] - Occupational Stress Questionnaire Feeling of Stress : Not at all Social Integration: Moderately Integrated (11/30/2024) Social Connection and Isolation Panel Frequency of Communication with Friends and Family: More than three times a week Frequency of Social Gatherings with Friends and Family: More than three times a week Attends Muslim Services: More than 4 times per year Active Member of Clubs or Organizations: Yes Attends Club or Organization Meetings: More than 4 times per year Marital Status: Personal Safety: Low Risk (12/21/2024) Personal Safety Feels Unsafe at Home or Work/School: no Feels Threatened by Someone: no Does Anyone Try to Keep You From Having Contact with Others or Doing Things Outside Your Home?: no Physical Signs of Abuse Present: no Housing Stability: High Risk (11/30/2024) Housing Stability Vital Sign Unable to Pay for Housing in the Last Year: Yes Number of Times Moved in the Last Year: 0 Homeless in the Last Year: No Family History No family history on file. Medications: Outpatient Medications Prior to Visit Medication Sig albuterol 108 (90 Base) MCG/ACT Aerosol Solution take 1-2 Puffs by inhalation every 6 hours as needed for Wheezing. aspirin 81 MG Chewable Tablet Take 81 mg by mouth daily. Cholecalciferol (Vitamin D) 125 MCG (5000 UT) Capsule Take 5,000 Units by mouth daily. DHA-Vitamin C-Lutein (EYE HEALTH FORMULA PO) Take 1 Tab by mouth 2 times daily. lisinopril (PRINIVIL, ZESTRIL) 20 MG Tablet Take 1 Tablet by mouth every evening. lisinopril-hydroCHLOROthiazide (PRINZIDE, ZESTORETIC) 20-25 MG Tablet TAKE 1 TABLET BY MOUTH DAILY Loratadine 10 MG Capsule Take 10 mg by mouth. LORazepam (ATIVAN) 0.5 MG Tablet Take 1 Tablet by mouth nightly as needed for Anxiety or Sleep. metoprolol Succinate (TOPROL-XL) 100 MG TABLET SR 24 HR TAKE 1 TABLET BY MOUTH DAILY pravastatin (PRAVACHOL) 40 MG Tablet TAKE 1 TABLET BY MOUTH DAILY No facility-administered medications prior to visit. Allergies: Allergies[3] Review of Systems Pertinent items are noted in HPI. All other systems were reviewed and were negative. Objective: Physical Exam Vital Signs: There were no vitals taken for this visit. General: Well-developed, well-nourished. No distress. Communication and Voice: Clear pitch and clarity; can hear adequately for verbal communication Neuro: Patient oriented to person, place, and time; Appropriate mood and affect for age Head and Face Inspection: Normocephalic and atraumatic without mass or lesion Eyes: No nystagmus with normal extraocular motion bilaterally ENT Pinna: External ears intact and fully developed External canals: RIGHT: Patent, LEFT: Patent Tympanic Membranes: RIGHT: Clear and intact tympanic membrane LEFT: Clear and intact tympanic membrane Nose: No scar or anatomic deformity TMJ: No pain to palpation with full ROM Salivary Glands: No mass or tenderness Lips/Oral cavity: No mass or lesion. Oropharynx: Moist, No mass or lesion. Tonsillar fossa symmetric. Other: Physical Exam Ears: Significant cerumen impaction noted, especially on the left side. Nose: Nasal examination performed. Oral Cavity: Oropharynx examined, no abnormalities noted. Neck: normal visual inspection. Trachea: Midline trachea. Thyroid: No mass or nodularity. Lymphatics: No lymphadenopathy. Heart: Normal rhythm Respiratory: no wheezing noted Abdomen: soft, non-tender. Assessment/Plan 1. Impacted cerumen of both ears (Primary) No follow-ups on file. Plan Assessment & Plan 1. Hearing loss. Difficulty hearing due to wax buildup, especially on the left side. Bilateral impacted cerumen removal. A follow-up appointment is scheduled in 6 months for wax removal. 2. Runny nose. Experiences a runny nose, particularly while eating. An intranasal spray will be prescribed for usetwice daily to manage this symptom. The spray is more effective and safer than iyoc-men-avtlulb pills, which can cause high blood pressure. Risks, benefits, and alternatives of treatment were discussed. The intranasal spray is recommended over pills due to its effectiveness and lower risk of causing high blood pressure. The patient was informed about the follow-up appointment for wax removal in 6 months. A thorough discussion with the patient including physical exam findings, diagnosis and the treatment plan, all questions were answered to the best of my knowledge, patient agreed to the diagnosis, and wanted to go ahead with the treatment plan. By: Cameron Recio MD, 06/21/2025, 9:17 PM CDT [1] Social History Tobacco Use Smoking Status Never Smokeless Tobacco Never [2] Past Surgical History: Procedure Laterality Date APPENDECTOMY CATARACT REMOVAL bilateral CHOLECYSTECTOMY HIP ARTHROPLASTY left HYSTERECTOMY OTHER SURGICAL HISTORY trans anal resection OVARIAN CYST REMOVAL right TOTAL KNEE ARTHROPLASTY bilateral [3] Allergies Allergen Reactions Prochlorperazine Other (see Comments) Dizziness Sulfa Antibiotics Nausea and Vomiting documented in this encounter Procedure Notes * Cameron Recio MD - 06/22/2025 9:15 AM CDTAssociated Order(s): REMOVE IMPACTED EAR WAX VIA INSTRUMENT BILAT PROCEDURE PERFORMED: Removal of bilateral Impacted Cerumen Risks, benefits and alternatives were discussed with the patient. Specific risks include irritationof the canal, bleeding, infection or need for additional procedures. Benefits include improvement of ear canal obstruction, and alternative includes observation or qspd-xvy-yymgfbu remedies at home if they are candidate. After obtaining informed consent, the patient was placed in a semi-reclining position in the exam chair. The operative otoscope was used to visualize the both ear canals . Impacted/obstructing cerumen was noted in both sides . Cerumen removal was accomplished using forceps The left tympanic membrane was visualized and noted to be intact and normal. The right tympanic membrane was visualized and noted to be intact and normal. The patient tolerated this well without complications. documented in this encounter Plan of Treatment Upcoming Encounters Date Type Department Care Team (Late st Contact Info) Description 12/21/2025 10:00 AM CDT Office Visit [facility] - [facility], [facility] & Th[facility] - [place] [address] [address] Cameron Recio MD [address] [place] [address] documented as of this encounter Procedures Procedure Name Priority Date/Time Associated Diagnosis Comments REMOVE IMPACTED EAR WAX VIA INSTRUMENT BILAT Routine 06/22/2025 9:15 AM CDT Impacted cerumen of both ears documented in this encounter Results * REMOVE IMPACTED EAR WAX VIA INSTRUMENT BILAT (06/22/2025 9:15 AM CDT) Narrative Cameron Recio MD - 06/22/2025 9:15 AM CDT Cameron Recio MD 06/22/2025 9:42 AM PROCEDURE PERFORMED: Removal of bilateral Impacted Cerumen Risks, benefits and alternatives were discussed with the patient. Specific risks include irritation of the canal, bleeding, infection or need for additional procedures. Benefits include improvement of ear canal obstruction, and alternative includes observation or lefd-vme-gqwlurh remedies at home if they are candidate. After obtaining informed consent, the patient was placed in a semi-reclining position in the exam chair. The operative otoscope was used to visualize the both ear canals . Impacted/obstructing cerumen was noted in both sides . Cerumen removal was accomplished using forceps The left tympanic membrane was visualized and noted to be intact and normal. The right tympanic membrane was visualized and noted to be intact and normal. The patient tolerated this well without complications. Cameron Recio MD PROCEDURE/MINOR SURGICAL ORDERA BLES Final Result documented in this encounter Visit Diagnoses Diagnosis Impacted cerumen of both ears- Primary Impacted cerumen Vasomotor rhinitis Allergic rhinitis, cause unspecified Nasal congestion Other diseases of nasal cavity and sinuses Posterior rhinorrhea Other diseases of nasal cavity and sinuses documented in this encounter Additional Health Concerns Assessment Noted Time PHQ-9 Depression Total Score: 0 12/22/19 25 8:12 AM CDT documented as of this encounter Care Teams Urban Planner Relationship Specialty Start Date End Date Sandra Pressley APRN, SENIOR TECHNICAL ANALYST [address] [place] [address] PCP - General Advanced Practice Nurse 11/30/24 Felix Kaiser MD [address] [place] [address] Consulting Physician Nephrology 12/21/24 Kan Billings MD [address] [place] [address] [address] Consulting Physician Cardiovascular Disease - Cardiology 12/21/24 documented as of this encounter
[2025-06-23] VITALS (11 sets, daily range): BP systolic 104–142; BP diastolic 41–86; PULSE 55–83; RESP 12–16; TEMP 36.2–36.5; O2SAT 96–100
--- NOTE | ~2025-06-23 | XR_ITS ---
EXAM/ PROCEDURE: XR shoulder RT min 2V - 06/23/2025 10:20 CDT HISTORY: 85 years old Female with POST OP RIGHT REVERSE TOTAL SHOULDER COMPARISON: None available TECHNIQUE: Two view(s) FINDINGS/ IMPRESSION: No fracture or dislocation. Right shoulder arthroplasty. Intact hardware and no loosening. Joint space narrowing, subchondral sclerosis, subchondral cyst formation and osteophyte formation, compatible with mild osteoarthritis. Reviewed, dictated and finalized at location N.
--- OUTSIDE RECORDS SUMMARY | 2025-06-23 00:21 | XMS_ITS | Encounter Summary ---
Author Organization [facility] Address [address] [place] [address] Phone Care Team Providers Care Studio Data Analyst Name Role Phone Hernandez Marrero Primary Care Provider Sandra Pressley APRN, FERN GATHERER Primary Care P rovider Felix Kaiser MD Unavailable [phone] Kan Billings MD Unavailable [phone] Reason for Visit * Reason Comments Medication Refill Encounter Details Date Type Department Care Team (Late st Contact Info) Description 02/03/2024 Refill [facility] - Primary [facility] - [place] [address] [place] [address] Val Mustafa MD [address] [place] [address] Medication Refill Social History Tobacco [...] Gender Identity Female 08/28/2023 1:03 PM SALES ORDER COORDINATOR Sexual Orientation Straight 08/28/2023 1: 03 PM SALES ORDER COORDINATOR documented as of this encounter Miscellaneous Notes * Telephone Encounter - Elena Putnam RN - 02/04/2024 9:05 AM CDT Medication(s[facility] Medication Refill Standing Order for Pediatricand Adult Patients. Requested Prescriptions Pending Prescriptions Disp Refills metoprolol Succinate (TOPROL-XL) 100 MG TABLET SR 24 HR [Pharmacy Med Name: METOPROLOL ER [id number] TABS] 90 Tablet 1 Sig: TAKE 1 [...] 11/17/23 Office Visit Hernandez Marrero PAC [facility] 09/08/23 Office Visit Val Mustafa MD [facility] Showing recent visits within past 365 days and meeting all other requirements Future Appointments No visits were found meeting these conditions. Showing future appointments within next 90 days and meeting all other requirements documented in this encounter Plan of Treatment Upcoming Encounters Date Type Department Care Team (Late st Contact Info) Description 12/21/2025 10:00 AM CDT [facility] - [place] [address] [id number] Cameron Recio MD [address] [facility] [address] [place] [address] documented as of this encounter Visit Diagnoses Diagnosis Essential hypertension Unspecified essential hypertension documented in this encounter Additional Health Concerns Assessment Noted Time PHQ-9 Depression Total Score: 0 11/17/19 10:49 AM SALES ORDER COORDINATOR documented as of this encounter Care Teams Studio Data Analyst Relationship Specialty Start Date End Date Hernandez Marrero, PAC [address] [place] [address] PCP - General Physician Livestock Yard Supervisor 12/10/23 11/29/24 Sandra Pressley APRN, FERN GATHERER [address] [place] [address] PCP - General Advanced Practice Nurse 11/30/24 Felix Kaiser MD [address] [place] [address] Consulting Physician Nephrology 12/21/24 Kan Billings MD [address] [facility] [address] [place] [address] Consulting Physician Cardiovascular Disease - Cardiology 12/21/24 documented as of this encounter
--- OUTSIDE RECORDS SUMMARY | 2025-06-23 00:21 | XMS_ITS | Clinical Summary ---
Author Organization [id number] Address [address] [place] [address] Care Team Providers Care Die Stamper Name Role Phone Unavailable Primary Care Provider Unavailabl e Source Comments [id number],non-owned Affiliates and Associated Physician Practices is amultiple site organization consisting of ambulatory clinics and hospital sitesin [place], [place], [place] and [place]. This disclosure is being madepursuant to the Care Everywhere program and may not contain all information available regarding this patient. Last updated [email or web address] Allergies Active Allergy Reactions Criticality Noted Date [...] on file Legal Sex Female 10:30 AM SCREENING TECH Gender Identity Not on file Sexual Orientation Not on file Last Filed Vital Signs Vital Sign Reading Time Taken Comments Blood Pressure 150/86 09/19/2015 2:52 PM SCREENING TECH Pulse 66 09/19/2015 2:52 PM SCREENING TECH Temperature 37 C (98.6 F) 09/19/2015 2:22 PM SCREENING TECH Respiratory Rate 18 09/19/2015 2:52 PM SCREENING TECH Oxygen Saturation 100% 09/19/2015 2:53 PM SCREENING TECH Inhaled Oxygen Concentration - - Weight 90.7 kg (200 lb) 09/19/2015 6:09 AM SCREENING TECH Height 160 cm (5' 3) 09/18/2015 3:29 PM SCREENING TECH Body Mass Index 35.43 09/18/2015 3:29 PM SCREENING TECH Plan of Treatment Health Maintenance Due Date Last Done Comments BONE DENSITY TESTING 1942 MEDICARE AWV 12 MONTHS 1942 DTAP/TDAP/TD VACCINES (1 - Tdap) 1961 PNEUMOCOCCAL VACCINE 50+ (1 of 1 - PCV) 1992 ZOSTER VACCINE (1 of 2) 1992 Respiratory Syncytial Virus (RSV) Vaccine Pt: or over 60 yrs (1 - 1-dose 75+ series) 2017 DEPRESSION SCREENING 10/06/2024 COVID-19 VACCINE (1 - 2023-2 5 season) 2025 INFLUENZA VACCINE (#1) 2025 HEPATITIS B VACCINE [...] this topic Medical Devices Implanted Type Area Industrial Services Worker Device Identifier Shelf Expiration Date Model / Serial / Lot Plate Vdr2 Proxm W L Narr Implanted:Qty: 1 on 09/19/2015 by Elias Evans MD at [facility] Right: Radius Acumed 70-0359 / / Peg Smooth Kenan 2.3 X 20mm Implanted:Qty: 1 on 09/19/2015 by Elias Evans MD at [facility] Right: Radius Acumed CO-S2320 / / Scrw Kenan Thrd 2.3 X 18mm Implanted:Qty: 1 on 09/19/2015 by Elias Evans MD at [facility] Right: Radius Acumed CO-T2318 / / Scrw Bone Dannie Ti Full Thrd 2.3mm X 20mm Implanted:Qty: 4 on 09/19/2015 by Elias Evans MD at [facility] Right: Radius Acumed CO-T2320 / / Scrw Non Kenan Hex 3.5mm X 12 Implanted:Qty: 2 on 09/19/2015 by Elias Evans MD at [facility] Right: Radius Acumed 30-0257 / / Scrw Non-Kenan Hexalobe 3.5mm X 10mm Implanted:Qty: 1 on 09/19/2015 by Elias Evans MD at [facility] Right: Radius Acumed [id number] / / Explanted Type Area Industrial Services Worker Device Identifier Shelf Expiration Date Model / Serial / Lot Drill Bit Explanted:Qty: 1 on 09/19/2015 at [facility] Right: Radius Acumed [id number] / / Gwire .054 X 6in Explanted:Qty: 2 on 09/19/2015 at [facility] Right: Radius Acumed [id number] / / Drill Bit Explanted:Qty: 1 on 09/19/2015 at [facility] Right: Galindo Billy [id number] / / Insurance MEDICARE [facility] MEDICARE [facility]
--- OUTSIDE RECORDS SUMMARY | 2025-06-23 00:21 | XMS_ITS | Encounter Summary ---
Author Organization [facility] Address [address] [place] [address] Phone Care Team Providers Care Management Advisor Name Role Phone JanesIsaijose JEAN-BAPTISTE Primary Care Provider [phone] Sandra Pressley APRN, VINICIO Primary Care P rovider Felix Kaiser MD Unavailable [phone] Kan Billings MD Unavailable Reason for Visit * Reason Comments Medication Refill Encounter Details Date Type Department Care Team (Late st Contact Info) Description 12/10/2023 Refill [facility] - Primary Care - [place] [address] [place] [address] Sandra Pressley APRN, HEALTH EDUCATION COORDINATOR [address] [place], [place] [id number] Medication Refill Social History Tobacco Use Types [...] CDT Gender Identity Female 08/28/2023 1:03 PM GUEST RELATIONS MANAGER Sexual Orientation Straight 08/28/2023 1: 03 PM GUEST RELATIONS MANAGER documented as of this encounter Plan of Treatment Upcoming Encounters Date Type Department Care Team (Late st Contact Info) Description 12/21/2025 10:00 AM CDT Office Visit [facility] - [place] [address] [address] Cameron Recio MD [address] [place] [address] [address] [address] documented as of this encounter Visit Diagnoses Diagnosis Hyperlipidemia, unspecified hyperlipidemia type documented in this encounter Additional Health Concerns Assessment Noted Time PHQ-9 Depression Total Score: 0 11/17/19 24 10:49 AM GUEST RELATIONS MANAGER documented as of this encounter Care Teams Management Advisor Relationship Specialty Start Date End Date Hernandez Marrero PAC [address] [place] [id number] PCP - General Physician Charge Aide 12/10/23 11/29/24 Sandra Pressley, KAYAKING INSTRUCTOR, HEALTH EDUCATION COORDINATOR [address] [place] [address] PCP - General Advanced Practice Nurse 11/30/24 Felix Kaiser MD [address] [place] [address] Consulting Physician Nephrology 12/21/24 Kan Billings MD [address] [facility] [address] [address] Consulting Physician Cardiovascular Disease - Cardiology 12/21/24 documented as of this encounter
--- OUTSIDE RECORDS SUMMARY | 2025-06-23 00:21 | XMS_ITS | Encounter Summary ---
Author Organization [facility] Address [address] [place] [address] Phone Care Team Providers Care Machine Biller Name Role Phone Hernandez Marrero Primary Care Provider Sandra Pressley APRN, TRACK SUBWAY REPAIR SUPERVISOR Primary Care P rovider Felix Kaiser MD Unavailable [phone] Kan Billings MD Unavailable Reason for Visit * Reason Comments Medication Refill Encounter Details Date Type Department Care Team (Late st Contact Info) Description 12/10/2023 Refill [facility] - Primary Care - [place] [address] [place] [address] Val Mustafa MD [address] [place] [address] Medication Refill Social History Tobacco [...] CDT Gender Identity Female 08/28/2023 1:03 PM WWE WRESTLER Sexual Orientation Straight 08/28/2023 1: 03 PM WWE WRESTLER documented as of this encounter Plan of Treatment Upcoming Encounters Date Type Department Care Team (Late st Contact Info) Description 12/21/2025 10:00 AM CDT Office Visit [facility] - [facility] - [place] [address] [address] Cameron Recio MD [address] [address] documented as of this encounter Visit Diagnoses Not on filedocumented in this encounter Additional Health Concerns Assessment Noted Time PHQ-9 Depression Total Score: 0 11/17/19 24 10:49 AM WWE WRESTLER documented as of this encounter Care Teams Machine Biller Relationship Specialty Start Date End Date Hernandez Marrero PAC [address] [place] [phone] PCP - General Physician Booster Pump Oiler 12/10/23 11/29/24 Sandra Pressley, READINESS PARAPROFESSIONAL, TRACK SUBWAY REPAIR SUPERVISOR [address] [place] [address] PCP - General Advanced Practice Nurse 11/30/24 Felix Kaiser MD [address] [facility] [address] [place] [address] Consulting Physician Nephrology 12/21/24 Kan Billings MD [address] [facility] [place] [address] Consulting Physician Cardiovascular Disease - Cardiology 12/21/24 documented as of this encounter
--- OUTSIDE RECORDS SUMMARY | 2025-06-23 00:22 | XMS_ITS | Encounter Summary ---
Author Organization [facility] Address [address] [place] [address] Phone Care Team Providers Care Manager Willow Name Role Phone Sandra Salas MD Primary Care Provider + [phone] Val Mutsafa MD Primary Care Provider + [phone] Hernandez Marrero PAC Primary Care Provider + [phone] Sandra Pressley APRN, VISUAL EFFECTS ARTIST Primary Care P rovider Felix Kaiser MD Unavailable [phone] Kan Billings MD Unavailable [phone] Reason for Visit * Reason Comments Medication Refill Encounter Details Date Type Department Care Team (Late st Contact Info) Description 09/13/2021 Refill [facility] - Primary Care - [place] [address] [place] [address] Sandra Salas MD [address] [place] [address] Medication Refill Social History Tobacco [...] CDT Gender Identity Female 08/28/2023 1:03 PM WINDOWS MIGRATION TECHNICIAN Sexual Orientation Straight 08/28/2023 1: 03 PM WINDOWS MIGRATION TECHNICIAN COVID-19 Exposure Response Date Recorded In the last month, have you been in contact with someone who was confirmed or suspected to have Coronavirus / COVID-19? No / Unsure 09/12/2021 11:02 AM WINDOWS MIGRATION TECHNICIAN documented as of this encounter Miscellaneous Notes * Telephone Encounter - Elena Putnam RN - 09/13/2021 11:37 AM CST lisinopril-hydroCHLOROthiazide (PRINZIDE, ZESTORETIC) 20-25 MG Tablet 90 Tablet 1 06/14/2021 OWS MIGRATION TECHNICIAN documented in this encounter Plan of Treatment Upcoming Encounters Date Type Department Care Team (Late st Contact Info) Description 12/21/2025 10:00 AM CDT Office Visit [facility] - [place] [address] [address] Cameron Recio MD [address] [phone] documented as of this encounter Visit Diagnoses Not on filedocumented in this encounter Additional Health Concerns Infection Onset Date Last Indicated Resolved Time COVID - 19 11/17/2023 11/17/2023 11/17/2023 11:3 3 AM WINDOWS MIGRATION TECHNICIAN COVID - 19 11/17/2023 11/17/2023 11/17/2023 11:3 8 AM WINDOWS MIGRATION TECHNICIAN COVID - 19 11/17/2023 11/17/2023 11/17/2023 11:5 1 AM WINDOWS MIGRATION TECHNICIAN COVID - 19 Confirmed 11/17/2023 11/17/2023 024 12:16 AM WINDOWS MIGRATION TECHNICIAN Assessment Noted Time PHQ-9 Depression Total Score: 0 11/02/19 20 1:00 PM WINDOWS MIGRATION TECHNICIAN documented as of this encounter Care Teams Manager Willow Relationship Specialty Start Date End Date Sandra Salas MD PCP - General Family Medicine 09/16/15 01/19/23 Val Mustafa MD [address] [place] [address] PCP - General Family Medicine 01/24/23 12/09/23 Hernandez Marrero, PAC [address] [place] [address] PCP - General Physician Nautical Instrument Mechanic 12/10/23 11/29/24 Sandra Pressley, BROACH TROUBLE SHOOTER, VISUAL EFFECTS ARTIST [address] [place] [address] PCP - General Advanced Practice Nurse 11/30/24 Felix Kaiser MD [address] [facility] [address] [place] [address] Consulting Physician Nephrology 12/21/24 Kan Billings MD [address] [place] [address] [place] [address] [place] [address] Consulting Physician Cardiovascular Disease - Cardiology 12/21/24 documented as of this encounter
--- OUTSIDE RECORDS SUMMARY | 2025-06-23 00:22 | XMS_ITS | Clinical Summary ---
Author Organization [facility] Address [address] [facility] [address] [address] Phone Care Team Providers Care Ledger Clerk Name Role Phone Sandra Pressley APRN, LOCKSTITCH TUNNEL ELASTIC OPERATOR Primary Care P romaricelder Felix Kaiser MD Unavailable [phone] Kan Billings MD Unavailable [phone] Allergies Active Allergy Reactions Criticality Noted Date [...] Wheezing. 8.5 g 3 05/06/20 23 Active pravastatin (PRAVACHOL) 40 MG TabletIndications: Hyperlipidemia, unspecified hyperlipidemia type TAKE 1 TABLET BY MOUTH DAILY 90 Tablet 01/01/20 25 Active lisinopril-hydroCH LOROthiazide (PRINZIDE, ZESTORETIC) 20-25 MG Tablet TAKE 1 TABLET BY MOUTH DAILY 90 Tablet 01/29/20 25 Active metoprolol Succinate (TOPROL-XL) 100 MG TABLET SR 24 HRIndications:Esse ntial hypertension TAKE 1 TABLET BY MOUTH DAILY 90 Tablet 04/25/20 25 Active LORazepam (ATIVAN) 0.5 MG TabletIndications: Anxiety Take 1 Tablet by mouth nightly as needed for Anxiety or Sleep. 30 Tablet 06/20/20 25 Active ipratropium (ATROVENT) 0.03 % SolutionIndication s:Impacted cerumen of both ears,Vasomotor rhinitis 2 Sprays by Nasal route every 12 hours. 30 mL 06/22/20 25 Active LORazepam (ATIVAN) 0.5 MG TabletIndications: Anxiety Take 1 Tablet by mouth nightly as needed for Anxiety or Sleep. 30 Tablet 09/08/20 24 025 Discontin ued(Reord er) Active Problems Problem Noted Date Diagnosed Date [...] Encounters Date Type Department Care Team Description 06/22/2025 9:15 AM CDT [facility] - [place] [address] [place] [address] Sandra Pressley APRN, Cameron Hale MD Impacted cerumen of both ears (Primary Dx); Vasomotor rhinitis; Nasal congestion; Posterior rhinorrhea Discharge Disposition: Discharged to home or Selfcare 06/21/2025 Travel [facility] [address] [phone] Sandra Pressley APRN, CNP Medication Refill 06/20/2025 Travel 04/24/2025 [facility] [address] [place] [address] Hernandez Marrero PAC Medication Refill from Last 3 Months [...] pur e alcohol) occassionally glass of wine [facility] Utilities Answer Date Recorded In the past [...] often do you attend chur ch or taoist services? More than 4 times per year 11/30/2024 Do you belong to any clubs o r organizations such as quaker groups, unions, fraternal or athletic groups, or [...] Total Score - Questions 1-9 0 12/04 [facility] of Occupat ional Health - Occupational Stress [...] any time in the past 12 m [facility], were you homeless or living in a residential (including now)? No 11/30/2024 Education Answer Date Recorded What is the highest level of school you have completed or the highest degree you have received? Some college, no degree 11/18/2020 Comments No Sex and Gender Information Value Date Recorded Sex Assigned at Not on file Legal Sex Female 8:49 PM CDT Gender Identity Female 08/28/2023 1:03 PM OIL WELL FISHING TOOL TECHNICIAN Sexual Orientation Straight 08/28/2023 1: 03 PM OIL WELL FISHING TOOL TECHNICIAN Last Filed Vital Signs Vital Sign Reading Time Taken Comments Blood Pressure 124/76 06/22/2025 9:21 AM CDT Pulse 70 06/22/2025 9:21 AM CDT Temperature 36.3 C (97.4 F) 12/21/2024 8:11 AM CDT Respiratory Rate 18 06/22/2025 9:21 AM CDT Oxygen Saturation 98% 06/22/2025 9:21 AM CDT Inhaled Oxygen Concentration - - Weight 94.3 kg (208 lb) 06/22/2025 9:21 AM CDT Height 160 cm (5' 3) 06/22/2025 9:21 AM CDT Body Mass Index 36.85 06/22/2025 9:21 AM CDT Plan of Treatment Upcoming Encounters Date Type Department Care Team (Late st Contact Info) Description 12/21/2025 10:00 AM CDT Office Visit [facility] - [place] [address] [address] Cameron Recio MD [address] [address] Health Maintenance Due Date Last Done Comments Cologuard 1987 Immunochemical Fecal Occult Blood 1987 Influenza Immunization (#1) 06/06/202512/2024, 09/08/2023, 07/23/2022, Additional history exists SARS-COV-2 Immunization [...] (Adult) Completed 10/24/2023 Zoster Immunization Completed 02/27/2024, Hepatitis B Immunization Aged Out No longer [...] AM CDT Impacted cerumen of both ears HEPATITIS C ANTIBODY Routine 09/08/2023 9:32 AM OIL WELL FISHING TOOL TECHNICIAN Encounter for hepatitis C screening test for low risk patient PAIGE BONE DENSITOMETRY AXIAL SKELETON Routine 12/13/2020 Postmenopausal HM COLONOSCOPY Routine 06/21/2015 from Last 3 Months or Most Recently Relevant to Health Maintenance Results * REMOVE IMPACTED EAR WAX VIA [...] canal obstruction, and alternative includes observation or [id number] remedies at home if they are candidate. [...] MD PROCEDURE/MINOR SURGICAL ORDERA BLES Final Result * HEPATITIS C ANTIBODY (09/08/2023 9:32 AM OIL WELL FISHING TOOL TECHNICIAN) hepatitis C antibody 0.09 <1 S/CO [facility] ARCH [id number] B 09/08/2023 9:23 PM OIL WELL FISHING TOOL TECHNICIAN [facility] Comment: Signal/Cutoff ratio < 0.79 is Nondetected Signal/Cutoff ratio 0.80-0.99 is Grayzone Signal/Cutoff ratio > 0.99 is Detected Supplemental assays are recommended if signal/cutoff ratio is >/=1.00. Signal/cutoff ratio result >/= 5.00 is 97% predictive of positivity for recombinant immunoblot assay (RIBA) and will be reported to the [place] Department of Public Health as required. Blood Venipuncture / Unknown 09/08/2023 9:32 AM OIL WELL FISHING TOOL TECHNICIAN 09/08/2023 9:32 AM OIL WELL FISHING TOOL TECHNICIAN us Val Mustafa MD CHEMISTRY ORDERABLES Final R esult [facility] [address] [place] [address], [place] * [facility] BONE DENSITOMETRY AXIAL SKELETON (12/13/2020) Anatomical Region Laterality Modality BODY N/A Other us Sandra Pressley APRN, CNP IMG DEXA ORDERA BLES Final Result * COLONOSCOPY (06/21/2015) Sandra Salas MD PROCEDURE/MINOR SURGICAL ORD ERABLES Final Result from Last 3 Months or Most Recently Relevant to Health Maintenance Insurance MEDICARE C [facility] Advance Directives Documents on File Type Date Recorded Patient Cast Iron Drain Pipe Layer Expl anation Advance Care Planning Discussion 11/26/2023 11:08 AM ACP Power of Processing Engineer for Health Care 11/26/2023 11:07 AM POA / HEALTH CARE Care Teams Ledger Clerk Relationship Specialty Start Date End Date Sandra Pressley APRN, CNP [address] [place] [address] PCP - General Advanced Practice Nurse 11/30/24 Felix Kaiser MD [address] [place] [address] Consulting Physician Nephrology 12/21/24 Kan Billings MD [address] [place] [address] [address] Consulting Physician Cardiovascular Disease - Cardiology 12/21/24
--- OUTSIDE RECORDS SUMMARY | 2025-06-23 00:22 | XMS_ITS | Encounter Summary ---
Author Organization [facility] Address [address] [place] [address] Phone Care Team Providers Care Systems Navigator Name Role Phone Sandra Salas MD Primary Care Provider + [phone] Val Mustafa MD Primary Care Provider + [phone] Hernandez Marrero PAC Primary Care Provider + [phone] Sandra Pressley APRN, MEDICAL DEVICE SALES Primary Care P rovider Felix Kaiser MD Unavailable [phone] Kan Billings MD Unavailable [phone] Reason for Visit * Reason Comments Medication Refill Encounter Details Date Type Department Care Team (Late st Contact Info) Description 09/14/2020 Refill [facility] - Primary Care - [place] [address] [place] [address] Sandra Salas MD [address] [place] [address] Medication Refill Social History Tobacco [...] CDT Gender Identity Female 08/28/2023 1:03 PM BACK TACKER Sexual Orientation Straight 08/28/2023 1: 03 PM BACK TACKER documented as of this encounter Miscellaneous Notes * Telephone Encounter - Flavia Bañuelos, [facility] - 09/14/2020 7:53 AM CST [...] Outpatient Visits 3 months ago Essential hypertension [facility] Sandra Salas MD 10 months ago Essential hypertension [facility] Sandra Multani MD 1 year ago [facility] 2 years ago Acute sinusitis, recurrence not specified, unspecified location [facility] Sandra Bautista MD 2 years ago Essential hypertension [facility] Sandra Bautista MD Upcoming Appointments Future Appointments In 2 months [facility] In 2 months Sandra Salas MD [facility] AUTO BODY STRAIGHTENER - Recent and Past Visits Recent Visits Date Type Provider Dept 05/18/20 Office Visit Sandra Salas MD [facility] [address] 11/02/19 Office Visit Sandra Salas MD [facility] Showing recent visits within past 460 days with a meds authorizing provider and meeting all other requirements Future Appointments Date Type Provider Dept 11/20/20 Appointment Sandra Salas MD [facility] [address] Showing future appointments within next 90 days with a meds authorizing provider and meeting all other requirements TACKER documented in this encounter Plan of Treatment Upcoming Encounters Date Type Department Care Team (Late st Contact Info) Description 12/21/2025 10:00 AM CDT [facility] Visit [facility] - [place] [address] [address] Cameron Recio MD [address] [address] documented as of this encounter Visit Diagnoses Diagnosis Anxiety Anxiety state, unspecified documented in this encounter Additional Health Concerns Infection Onset Date Last Indicated Resolved Time COVID - 19 10/04/2020 10/04/2020 10/06/2020 12:4 5 PM BACK TACKER COVID - 19 11/17/2023 11/17/2023 11/17/2023 11:3 3 AM BACK TACKER COVID - 19 11/17/2023 11/17/2023 11/17/2023 11:3 8 AM BACK TACKER COVID - 19 11/17/2023 11/17/2023 11/17/2023 11:5 1 AM BACK TACKER COVID - 19 Confirmed 11/17/2023 11/17/2023 024 12:16 AM BACK TACKER Assessment Noted Time PHQ-9 Depression Total Score: 0 11/02/19 20 1:00 PM BACK TACKER documented as of this encounter Care Teams Systems Navigator Relationship Specialty Start Date End Date Sandra Salas MD PCP - General Family Medicine 09/16/15 01/19/23 Val Mustafa MD [address] [place] [address] PCP - General Family Medicine 01/24/23 12/09/23 Hernandez Marrero, PAC [address] [place] [address] PCP - General Physician Cryogenic Transport Driver 12/10/23 11/29/24 Sandra Pressley APRN, MEDICAL DEVICE SALES [address] [place] [address] PCP - General Advanced Practice Nurse 11/30/24 Felix Kaiser MD [address] [facility] [address] [place] [address] Consulting Physician Nephrology 12/21/24 Kan Billings MD [address] [place] [address] [place] [address] Consulting Physician Cardiovascular Disease - Cardiology 12/21/24 documented as of this encounter
--- OUTSIDE RECORDS SUMMARY | 2025-06-23 00:22 | XMS_ITS | Encounter Summary ---
Author Organization [facility] Address [address] [place] [address] Phone Care Team Providers Care Demurrage Clerk Name Role Phone Sandra Salas MD Primary Care Provider + [phone] Val Mustafa MD Primary Care Provider + [phone] Hernandez Marrero PAC Primary Care Provider + [phone] Sandra Pressley APRN, TEACHER ADVISOR Primary Care P rovider Felix Kaiser MD Unavailable [phone] Kan Billings MD Unavailable [phone] Reason for Visit * Reason Comments Medication Refill Encounter Details Date Type Department Care Team (Late st Contact Info) Description 03/12/2022 Refill [facility] - Primary Care - [place] [address] [place] [address] Sandra Salas MD [address] [place] [address] Medication Refill Social History Tobacco [...] CDT Gender Identity Female 08/28/2023 1:03 PM BLOWING WEASAND Sexual Orientation Straight 08/28/2023 1: 03 PM BLOWING WEASAND documented as of this encounter Miscellaneous Notes * Telephone Encounter - Noemí Roper RN - 03/12/2022 8:45 AM CDT Refill request too soon. documented in this encounter Plan of Treatment Upcoming Encounters Date Type Department Care Team (Late st Contact Info) Description 12/21/2025 10:00 AM CDT [facility] Visit [facility] [address] [address] Cameron Recio MD [address] [address] documented as of this encounter Visit Diagnoses Diagnosis Hyperlipidemia, unspecified hyperlipidemia type documented in this encounter Additional Health Concerns Infection Onset Date Last Indicated Resolved Time COVID - 19 11/17/2023 11/17/2023 11/17/2023 11:3 3 AM BLOWING WEASAND COVID - 19 11/17/2023 11/17/2023 11/17/2023 11:3 8 AM BLOWING WEASAND COVID - 19 11/17/2023 11/17/2023 11/17/2023 11:5 1 AM BLOWING WEASAND COVID - 19 Confirmed 11/17/2023 11/17/2023 024 12:16 AM BLOWING WEASAND Assessment Noted Time PHQ-9 Depression Total Score: 0 11/02/19 20 1:00 PM BLOWING WEASAND documented as of this encounter Care Teams Demurrage Clerk Relationship Specialty Start Date End Date Sandra Salas MD PCP - General Family Medicine 09/16/15 01/19/23 Val Mustafa MD [address] [place] [address] PCP - General Family Medicine 01/24/23 12/09/23 Hernandez Marrero, PAC [address] [place] [address] PCP - General Physician Property Assistant 12/10/23 11/29/24 Sandra Pressley, CLOTHING BUSHELER, TEACHER ADVISOR [address] [place] [address] PCP - General Advanced Practice Nurse 11/30/24 Felix Kaiser MD [address] [facility] [address] [place], [place] [phone] Consulting Physician Nephrology 12/21/24 Kan Billings MD [address] [place] [address] [address] [place], [place] [address], [place] [address] Consulting Physician Cardiovascular Disease - Cardiology 12/21/24 documented as of this encounter
--- OUTSIDE RECORDS SUMMARY | 2025-06-23 00:22 | XMS_ITS | Encounter Summary ---
Author Organization [facility] Address [address] [place] [address] Phone Care Team Providers Care Hurl Shaker Name Role Phone Sandra Salas MD Primary Care Provider + [phone] Val Msutafa MD Primary Care Provider + [phone] Hernandez Marrero PAC Primary Care Provider + [phone] Sandra Pressley APRN, REACTOR KETTLE OPERATOR Primary Care P rovider Felix Kaiser MD Unavailable [phone] Kan Billings MD Unavailable [phone] Reason for Visit * Reason Comments Medication Refill Encounter Details Date Type Department Care Team (Late st Contact Info) Description 03/05/2022 Refill [facility] - Primary Care - [place] [address] [place] [address] Sandra Salas MD [address] [place] [address] Medication Refill Social History Tobacco [...] CDT Gender Identity Female 08/28/2023 1:03 PM HOTEL YARDPERSON Sexual Orientation Straight 08/28/2023 1: 03 PM HOTEL YARDPERSON documented as of this encounter Miscellaneous Notes [...] Medical Group - Ear, Nose & Throat [facility] [address] [address] Cameron Recio MD [address] [address] documented as of this encounter Visit Diagnoses Diagnosis Hyperlipidemia, unspecified hyperlipidemia type documented in this encounter Additional Health Concerns Infection Onset Date Last Indicated Resolved Time COVID - 19 11/17/2023 11/17/2023 11/17/2023 11:3 3 AM HOTEL YARDPERSON COVID - 19 11/17/2023 11/17/2023 11/17/2023 11:3 8 AM HOTEL YARDPERSON COVID - 19 11/17/2023 11/17/2023 11/17/2023 11:5 1 AM HOTEL YARDPERSON COVID - 19 Confirmed 11/17/2023 11/17/2023 024 12:16 AM HOTEL YARDPERSON Assessment Noted Time PHQ-9 Depression Total Score: 0 11/02/19 20 1:00 PM HOTEL YARDPERSON documented as of this encounter Care Teams Hurl Shaker Relationship Specialty Start Date End Date Sandra Salas MD PCP - General Family Medicine 09/16/15 01/19/23 Val Mustafa MD [address] [place] [address] PCP - General Family Medicine 01/24/23 12/09/23 Hernandez Marrero, PAC [address] [place] [address] PCP - General Physician Recapper 12/10/23 11/29/24 Sandra Pressley, APPEALS ANALYST, REACTOR KETTLE OPERATOR [address] [place] [address] PCP - General Advanced Practice Nurse 11/30/24 Felix Kaiser MD [address] [place] [address] Consulting Physician Nephrology 12/21/24 Kan Billings MD [address] [facility] [address] [place] [address] Consulting Physician Cardiovascular Disease - Cardiology 12/21/24 documented as of this encounter
--- OUTSIDE RECORDS SUMMARY | 2025-06-23 00:23 | XMS_ITS | Encounter Summary ---
Author Organization [facility] Address [address] [place] [address] Phone Care Team Providers Care Mortgage Operations Manager Name Role Phone Sandra Salas MD Primary Care Provider + [phone] Val Mustafa MD Primary Care Provider + [phone] Hernandez Marrero PAC Primary Care Provider + [phone] Sandra Pressley APRN, PULLMAN CAR REPAIRER Primary Care P rovider Felix Kaiser MD Unavailable [phone] Kan Billings MD Unavailable [phone] Reason for Visit * Reason Comments Medication Refill Encounter Details Date Type Department Care Team (Late st Contact Info) Description 01/01/2022 Refill [facility] - Primary Care - [place] [address] [place] [address] Sandra Salas MD [address] [place] [address] Medication Refill Social History Tobacco [...] CDT Gender Identity Female 08/28/2023 1:03 PM UNIFORM PATROL POLICE OFFICER Sexual Orientation Straight 08/28/2023 1: 03 PM UNIFORM PATROL POLICE OFFICER documented as of this encounter Miscellaneous Notes * Telephone Encounter - Noeím Roper RN - 01/01/2022 11:11 AM CDT [...] 09/12/21 Office Visit Sandra Pressley APRN, VINICIO [facility] 06/04/21 Office Visit [facility] Sal[facility] MD [facility] Showing recent visits within past 365 days and meeting all other requirements Future Appointments Date Type Provider Dept 01/09/22 Appointment [facility] 01/17/22 Appointment Sandra Salas MD [facility] Showing future appointments within next 90 days and meeting all other requirements documented in this encounter Plan of Treatment Upcoming Encounters Date Type Department Care Team (Late st Contact Info) Description 12/21/2025 10:00 AM CDT Office Visit [facility] - Ear, Nose & Throat - [place] [address] [place] [address] Cameron Recio MD [address] [address] documented as of this encounter Visit Diagnoses Diagnosis Anxiety Anxiety state, unspecified documented in this encounter Additional Health Concerns Infection Onset Date Last Indicated Resolved Time COVID - 19 11/17/2023 11/17/2023 11/17/2023 11:3 3 AM UNIFORM PATROL POLICE OFFICER COVID - 19 11/17/2023 11/17/2023 11/17/2023 11:3 8 AM UNIFORM PATROL POLICE OFFICER COVID - 19 11/17/2023 11/17/2023 11/17/2023 11:5 1 AM UNIFORM PATROL POLICE OFFICER COVID - 19 Confirmed 11/17/2023 11/17/2023 024 12:16 AM UNIFORM PATROL POLICE OFFICER Assessment Noted Time PHQ-9 Depression Total Score: 0 11/02/19 20 1:00 PM UNIFORM PATROL POLICE OFFICER documented as of this encounter Care Teams Mortgage Operations Manager Relationship Specialty Start Date End Date Sandra Salas MD PCP - General Family Medicine 09/16/15 01/19/23 Val Mustafa MD [address] [place] [address] PCP - General Family Medicine 01/24/23 12/09/23 Hernandez Marrero PAC [address] [place] [address] PCP - General Physician Lens Grinder Apprentice 12/10/23 11/29/24 Sandra Pressley APRN, PULLMAN CAR REPAIRER [address] [place] [address] PCP - General Advanced Practice Nurse 11/30/24 Felix Kaiser MD [address] [place] [address] Consulting Physician Nephrology 12/21/24 Kan Billings MD [address] [place] [address] [address] Consulting Physician Cardiovascular Disease - Cardiology 12/21/24 documented as of this encounter
--- OUTSIDE RECORDS SUMMARY | 2025-06-23 00:23 | XMS_ITS | Encounter Summary ---
Author Organization [facility] Address [address] [place] [address] Phone Care Team Providers Care Study Specialist Name Role Phone Sandra Salas MD Primary Care Provider + [phone] Val Mustafa MD Primary Care Provider + [phone] Hernandez Marrero PAC Primary Care Provider + [phone] Sandra Pressley APRN, HEALTH PROMOTER Primary Care P rovider Felix Kaiser MD Unavailable [phone] Kan Billings MD Unavailable [phone] Reason for Visit * Reason Comments Medication Refill Encounter Details Date Type Department Care Team (Late st Contact Info) Description 11/12/2021 Refill [facility] - Primary Care - [place] [address] [place] [address] Sandra Salas MD [address] [place] [address] Medication Refill Social History Tobacco [...] CDT Gender Identity Female 08/28/2023 1:03 PM CUSTOMER SUCCESS ASSOCIATE Sexual Orientation Straight 08/28/2023 1: 03 PM CUSTOMER SUCCESS ASSOCIATE documented as of this encounter Miscellaneous Notes * Telephone Encounter - Noemí Roper RN - 11/12/2021 1:01 PM CUSTOMER SUCCESS ASSOCIATE Refill requested too soon. OMER SUCCESS ASSOCIATE documented in this encounter Plan of Treatment Upcoming Encounters Date Type Department Care Team (Late st Contact Info) Description 12/21/2025 10:00 AM CDT Office Visit [facility] - [facility] N[facility] & Th[facility]at [facility] [address] [address] Cameron Recio MD [address] [address] documented as of this encounter Visit Diagnoses Diagnosis Essential hypertension Unspecified essential hypertension Hyperlipidemia, unspecified hyperlipidemia type documented in this encounter Additional Health Concerns Infection Onset Date Last Indicated Resolved Time COVID - 19 11/17/2023 11/17/2023 11/17/2023 11:3 3 AM CUSTOMER SUCCESS ASSOCIATE COVID - 19 11/17/2023 11/17/2023 11/17/2023 11:3 8 AM CUSTOMER SUCCESS ASSOCIATE COVID - 19 11/17/2023 11/17/2023 11/17/2023 11:5 1 AM CUSTOMER SUCCESS ASSOCIATE COVID - 19 Confirmed 11/17/2023 11/17/2023 024 12:16 AM CUSTOMER SUCCESS ASSOCIATE Assessment Noted Time PHQ-9 Depression Total Score: 0 11/02/19 20 1:00 PM CUSTOMER SUCCESS ASSOCIATE documented as of this encounter Care Teams Study Specialist Relationship Specialty Start Date End Date Sandra Salas MD PCP - General Family Medicine 09/16/15 01/19/23 Val Mustafa MD [address] [place] [address] PCP - General Family Medicine 01/24/23 12/09/23 Hernandez Marrero PAC [address] [place] [address] PCP - General Physician Sour Bleaching Pleater 12/10/23 11/29/24 Sandra Pressley, FORMULA TECHNICIAN, HEALTH PROMOTER [address] [place] [address] PCP - General Advanced Practice Nurse 11/30/24 Felix Kaiser MD [address] [facility] [address] [place], [place] [address] Consulting Physician Nephrology 12/21/24 Kan Billings MD [address] [place] [address] [address] Consulting Physician Cardiovascular Disease - Cardiology 12/21/24 documented as of this encounter
--- OUTSIDE RECORDS SUMMARY | 2025-06-23 00:23 | XMS_ITS | Encounter Summary ---
Author Organization [facility] Address [address] [place] [address] Phone Care Team Providers Care Food Expeditor Name Role Phone Sandra Salas MD Primary Care Provider + [phone] Val Mustafa MD Primary Care Provider + [phone] Hernadnez Marrero PAC Primary Care Provider + [phone] Sandra Pressley APRN, RETORT FIREMAN Primary Care P rovider Felix Kaiser MD Unavailable [phone] Kan Billings MD Unavailable [phone] Reason for Visit * Reason Comments Medication Refill Encounter Details Date Type Department Care Team (Late st Contact Info) Description 05/13/2021 Refill [facility] - Primary Care - [place] [address] [place] [address] Sandra Salas MD [address] [place] [address] Medication Refill Social History Tobacco [...] CDT Gender Identity Female 08/28/2023 1:03 PM UTILIZATION REVIEWER Sexual Orientation Straight 08/28/2023 1: 03 PM UTILIZATION REVIEWER documented as of this encounter Plan of Treatment Upcoming Encounters Date Type Department Care Team (Late st Contact Info) Description 12/21/2025 10:00 AM CDT Office Visit [facility] - Ear, Nose & Throat - [place] [address] [address] Cameron Recio MD [address] [address] documented as of this encounter Visit Diagnoses Diagnosis Essential hypertension Unspecified essential hypertension documented in this encounter Additional Health Concerns Infection Onset Date Last Indicated Resolved Time COVID - 19 11/17/2023 11/17/2023 11/17/2023 11:3 3 AM UTILIZATION REVIEWER COVID - 19 11/17/2023 11/17/2023 11/17/2023 11:3 8 AM UTILIZATION REVIEWER COVID - 19 11/17/2023 11/17/2023 11/17/2023 11:5 1 AM UTILIZATION REVIEWER COVID - 19 Confirmed 11/17/2023 11/17/2023 024 12:16 AM UTILIZATION REVIEWER Assessment Noted Time PHQ-9 Depression Total Score: 0 11/02/19 20 1:00 PM UTILIZATION REVIEWER documented as of this encounter Care Teams Food Expeditor Relationship Specialty Start Date End Date Sandra Salas MD PCP - General Family Medicine 09/16/15 01/19/23 Val Mustafa MD [address] [place] [address] PCP - General Family Medicine 01/24/23 12/09/23 Hernandez Marrero, PAC [address] [place] [address] PCP - General Physician Elementary Vocal Music Teacher 12/10/23 11/29/24 Sandra Pressley APRN, RETORT FIREMAN [address] [place] [address] PCP - General Advanced Practice Nurse 11/30/24 Felix Kaiser MD [address] [facility] [address] [place] [address] Consulting Physician Nephrology 12/21/24 Kan Billings MD [address] [place] [address] [place] [address] Consulting Physician Cardiovascular Disease - Cardiology 12/21/24 documented as of this encounter
--- OUTSIDE RECORDS SUMMARY | 2025-06-23 00:23 | XMS_ITS | Encounter Summary ---
Author Organization [facility] Address [address] [place] [address] Phone Care Team Providers Care Car Filler Name Role Phone Sandra Salas MD Primary Care Provider + [phone] Val Mustafa MD Primary Care Provider + [phone] Hernandez Marrero PAC Primary Care Provider + [phone] Sandra Pressley APRN, DIRECTOR CLINICAL PHARMACOLOGY Primary Care P rovider Felix Kaiser MD Unavailable [phone] Kan Billings MD Unavailable [phone] Reason for Visit * Reason Comments Medication Refill Encounter Details Date Type Department Care Team (Late st Contact Info) Description 11/13/2021 Refill [facility] - Primary Care - [place] [address] [place] [address] Sandra Salas MD [address] [place] [address] Medication Refill Social History Tobacco [...] CDT Gender Identity Female 08/28/2023 1:03 PM DATA SERVICES DEVELOPER Sexual Orientation Straight 08/28/2023 1: 03 PM DATA SERVICES DEVELOPER documented as of this encounter Miscellaneous [...] Provider Dept 09/12/21 Office Visit Sandra Pressley, PSYCHOLOGICAL OPERATIONS, DIRECTOR CLINICAL PHARMACOLOGY [facility] 06/04/21 Office Visit Sandra Salas MD [facility] 11/28/20 Office Visit Sandra Pressley APRN, DIRECTOR CLINICAL PHARMACOLOGY [facility] Showing recent visits within past 365 days and meeting all other requirements Future Appointments Date Type Provider Dept 12/04/21 Appointment David [place] 12/11/21 Appointment Sandra Salas MD [facility] Showing future appointments within next 90 days and meeting all other requirements Passed - GFR on record in past 12 months GFR, EST. NONAFRICAN Date Value Ref Range Status 05/28/2021 40 (L) >=60 Final SERVICES DEVELOPER documented in this encounter Plan of Treatment Upcoming Encounters Date Type Department Care Team (Late st Contact Info) Description 12/21/2025 10:00 AM CDT Office Visit [facility] - Ear, Nose & Throat - [place] [address] [address] Cameron Recio MD [address] [address] documented as of this encounter Visit Diagnoses Not on filedocumented in this encounter Additional Health Concerns Infection Onset Date Last Indicated Resolved Time COVID - 19 11/17/2023 11/17/2023 11/17/2023 11:3 3 AM DATA SERVICES DEVELOPER COVID - 19 11/17/2023 11/17/2023 11/17/2023 11:3 8 AM DATA SERVICES DEVELOPER COVID - 19 11/17/2023 11/17/2023 11/17/2023 11:5 1 AM DATA SERVICES DEVELOPER COVID - 19 Confirmed 11/17/2023 11/17/2023 024 12:16 AM DATA SERVICES DEVELOPER Assessment Noted Time PHQ-9 Depression Total Score: 0 11/02/19 20 1:00 PM DATA SERVICES DEVELOPER documented as of this encounter Care Teams Car Filler Relationship Specialty Start Date End Date Sandra Salas MD PCP - General Family Medicine 09/16/15 01/19/23 Val Mustafa MD [address] [place] [address] PCP - General Family Medicine 01/24/23 12/09/23 Hernandez Marrero, [facility] [address] [place] [address] PCP - General Physician Jd Edwards Consultant 12/10/23 11/29/24 Sandra Pressley APRN, DIRECTOR CLINICAL PHARMACOLOGY [address] [place] [address] PCP - General Advanced Practice Nurse 11/30/24 Felix Kaiser MD [address] [facility] [address] [place] [address] Consulting Physician Nephrology 12/21/24 Kan Billings MD [address] [place] [address] DR LAMB [address] [place] [address] Consulting Physician Cardiovascular Disease - Cardiology 12/21/24 documented as of this encounter
--- OUTSIDE RECORDS SUMMARY | 2025-06-23 00:23 | XMS_ITS | Encounter Summary ---
Author Organization [facility] Address [address] [place] [address] Phone Care Team Providers Care Funeral Director Name Role Phone Sandra Salas MD Primary Care Provider + [phone] Val Mustafa MD Primary Care Provider + [phone] Hernandez Marrero PAC Primary Care Provider + [phone] Sandra Pressley APRN, LABORER HEADING Primary Care P rovider Felix Kaiser MD Unavailable [phone] Kan Billings MD Unavailable [phone] Reason for Visit * Reason Comments Medication Refill Encounter Details Date Type Department Care Team (Late st Contact Info) Description 05/18/2021 Refill [facility] - Primary Care - [place] [address] [place] [address] Sandra Salas MD [address] [place] [address] Medication Refill Social History Tobacco [...] CDT Gender Identity Female 08/28/2023 1:03 PM AUDIT CLERK Sexual Orientation Straight 08/28/2023 1: 03 PM AUDIT CLERK documented as of this encounter Miscellaneous Notes [...] Group - Ear, Nose & Throat - [place] [address] [address] Cameron Recio MD [address] [address] documented as of this encounter Visit Diagnoses Diagnosis Essential hypertension Unspecified essential hypertension documented in this encounter Additional Health Concerns Infection Onset Date Last Indicated Resolved Time COVID - 19 11/17/2023 11/17/2023 11/17/2023 11:3 3 AM AUDIT CLERK COVID - 19 11/17/2023 11/17/2023 11/17/2023 11:3 8 AM AUDIT CLERK COVID - 19 11/17/2023 11/17/2023 11/17/2023 11:5 1 AM AUDIT CLERK COVID - 19 Confirmed 11/17/2023 11/17/2023 024 12:16 AM AUDIT CLERK Assessment Noted Time PHQ-9 Depression Total Score: 0 11/02/19 20 1:00 PM AUDIT CLERK documented as of this encounter Care Teams Funeral Director Relationship Specialty Start Date End Date Sandra Salas MD PCP - General Family Medicine 09/16/15 01/19/23 Val Mustafa MD [address] [place] [address] PCP - General Family Medicine 01/24/23 12/09/23 Hernandez Marrero, PAC [address] [place] [address] PCP - General Physician Public Health Doctor 12/10/23 11/29/24 Sandra Pressley, CLINICAL APPLICATIONS SPECIALIST, LABORER HEADING [address] [place] [address] PCP - General Advanced Practice Nurse 11/30/24 Felix Kaiser MD [address] [facility] [address] [place] [address] Consulting Physician Nephrology 12/21/24 Kan Billings MD [address] [place] [address] DR LAMB [facility] [place] [address] Consulting Physician Cardiovascular Disease - Cardiology 12/21/24 documented as of this encounter
--- OUTSIDE RECORDS SUMMARY | 2025-06-23 00:24 | XMS_ITS | Encounter Summary ---
Author Organization [facility] Address [address] [place] [address] Phone Care Team Providers Care Program Arranger Name Role Phone Sandra Salas MD Primary Care Provider + [phone] Val Mustafa MD Primary Care Provider + [phone] Hernandez Marrero PAC Primary Care Provider + [phone] Sandra Pressley APRN, EARTH OBSERVATIONS CHIEF SCIENTIST Primary Care P rovider Felix Kaiser MD Unavailable [phone] Kan Billings MD Unavailable [phone] Reason for Visit * Reason Comments Medication Refill Encounter Details Date Type Department Care Team (Late st Contact Info) Description 06/11/2021 Refill [facility] - Primary Care - [place] [address] [place] [address] Sandra Salas MD [address] [place] [address] Medication Refill Social History Tobacco [...] CDT Gender Identity Female 08/28/2023 1:03 PM CORN MILLER Sexual Orientation Straight 08/28/2023 1: 03 PM CORN MILLER COVID-19 Exposure Response Date Recorded In the [...] Group - Ear, Nose & Throat - [place] [address] [address] Cameron Recio MD [address] [phone] documented as of this encounter Visit Diagnoses Not on filedocumented in this encounter Additional Health Concerns Infection Onset Date Last Indicated Resolved Time COVID - 19 11/17/2023 11/17/2023 11/17/2023 11:3 3 AM CORN MILLER COVID - 19 11/17/2023 11/17/2023 11/17/2023 11:3 8 AM CORN MILLER COVID - 19 11/17/2023 11/17/2023 11/17/2023 11:5 1 AM CORN MILLER COVID - 19 Confirmed 11/17/2023 11/17/2023 024 12:16 AM CORN MILLER Assessment Noted Time PHQ-9 Depression Total Score: 0 11/02/19 20 1:00 PM CORN MILLER documented as of this encounter Care Teams Program Arranger Relationship Specialty Start Date End Date Sandra Salas MD PCP - General Family Medicine 09/16/15 01/19/23 Val Mustafa MD [address] [place] [address] PCP - General Family Medicine 01/24/23 12/09/23 Hernandez Marrero, PAC [address] [place] [address] PCP - General Physician Nuclear Medicine Technologist 12/10/23 11/29/24 Sandra Pressley, CAR HOSTLER, EARTH OBSERVATIONS CHIEF SCIENTIST [address] [place] [address] PCP - General Advanced Practice Nurse 11/30/24 Felix Kaiser MD [address] [facility] [address] [place] [address] Consulting Physician Nephrology 12/21/24 Kan Billings MD [address] [place] [address] [place] [address] [place] [address] Consulting Physician Cardiovascular Disease - Cardiology 12/21/24 documented as of this encounter
--- OUTSIDE RECORDS SUMMARY | 2025-06-23 00:24 | XMS_ITS | Encounter Summary ---
Author Organization [facility] Address [address] [place] [address] Phone Care Team Providers Care Geological Engineering Teacher Name Role Phone Sandra Salas MD Primary Care Provider + [phone] Val Mustafa MD Primary Care Provider + [phone] Hernandez Marrero PAC Primary Care Provider + [phone] Sandra Pressley APRN, PRODUCT DIRECTOR Primary Care P rovider Felix Kaiser MD Unavailable [phone] Kan Billings MD Unavailable [phone] Reason for Visit * Reason Comments Medication Refill Encounter Details Date Type Department Care Team (Late st Contact Info) Description 06/13/2021 Refill [facility] - Primary Care - [place] [address] [place] [address] Sandra Salas MD [address] [place] [address] Medication Refill Social History Tobacco [...] CDT Gender Identity Female 08/28/2023 1:03 PM SLOT MACHINE DEPARTMENT FLOORPERSON Sexual Orientation Straight 08/28/2023 1: 03 PM SLOT MACHINE DEPARTMENT FLOORPERSON COVID-19 Exposure Response Date Recorded In the [...] Dept 06/04/21 Office Visit Sandra Salas MD [facility] 11/28/20 Office Visit Sandra Pressley ENGINEERING SURVEYOR, PRODUCT DIRECTOR [facility] Showing recent visits within past 365 days [...] Group - Ear, Nose & Throat - [place] [address] [address] Cameron Recio MD [address] [address] documented as of this encounter Visit Diagnoses Not on filedocumented in this encounter Additional Health Concerns Infection Onset Date Last Indicated Resolved Time COVID - 19 11/17/2023 11/17/2023 11/17/2023 11:3 3 AM SLOT MACHINE DEPARTMENT FLOORPERSON COVID - 19 11/17/2023 11/17/2023 11/17/2023 11:3 8 AM SLOT MACHINE DEPARTMENT FLOORPERSON COVID - 19 11/17/2023 11/17/2023 11/17/2023 11:5 1 AM SLOT MACHINE DEPARTMENT FLOORPERSON COVID - 19 Confirmed 11/17/2023 11/17/2023 024 12:16 AM SLOT MACHINE DEPARTMENT FLOORPERSON Assessment Noted Time PHQ-9 Depression Total Score: 0 11/02/19 20 1:00 PM SLOT MACHINE DEPARTMENT FLOORPERSON documented as of this encounter Care Teams Geological Engineering Teacher Relationship Specialty Start Date End Date Sandra Salas MD PCP - General Family Medicine 09/16/15 01/19/23 Val Mustafa MD [address] [place] [address] PCP - General Family Medicine 01/24/23 12/09/23 Hernandez Marrero, PAC [address] [place] [address] PCP - General Physician Family Consumer Scientist 12/10/23 11/29/24 Sandra Pressley APRN, PRODUCT DIRECTOR [address] [place] [address] PCP - General Advanced Practice Nurse 11/30/24 Felix Kaiser MD [address] [facility] [address] [place] [address] Consulting Physician Nephrology 12/21/24 Kan Billings MD [address] [place] [address] DR LAMB [address] [place] [address] Consulting Physician Cardiovascular Disease - Cardiology 12/21/24 documented as of this encounter
[2025-06-23] MEDS: LACTATED RINGERS 1,000 ML 30 ML IV CONT ×2 (06:30→10:16)
[2025-06-23] MEDS: TRANEXAMIC ACID 1,000MG/ISO100 1,000 MG/100 ML BAG 200 MG IVPB (06:30)
[2025-06-23] MEDS: ACETAMINOPHEN 500 MG TABLET 1000 MG PO (07:00)
--- NOTE | 2025-06-23 07:03 | WPDANESEPPF ---
Anes - Initial Pre Proc Eval Procedure: Operation Date: 06/23/25 07:30 Proposed Procedures p Right Reverse Total Shoulder Arthroplasty - Ottoniel De Santiago MD Date/Time: 06/23/25 07:03 Surgeon: Ottoniel De Santiago MD Pre Op Diagnosis: primary OA right shoulder Patient Data Age: 85 Gender: F Height: 1.55 m Weight: 94.9 kg Last Vital Signs Temp 97.3 F L 05/25/25 11:10 Pulse 61 05/25/25 11:10 Resp 18 05/25/25 11:10 BP 143/71 H 05/25/25 11:10 Pulse Ox 97 05/25/25 11:10 O2 Del Method Room Air 05/25/25 11:10 Allergies Allergy/AdvReac Type Severity Reaction Status Date / Time prochlorperazine Allergy Mild Other Verified 06/13/25 10:04 sulfanilamide Allergy Unknown Vomiting Verified 06/13/25 10:04 Sulfa (Sulfonamide AdvReac Severe N/V Verified 06/13/25 10:04 Antibiotics) Home Medications ?Medication ?Instructions ?Recorded ?Confirmed ?Type aspirin 81 mg tablet,delayed 81 mg PO DAILY 11/11/23 06/13/25 History release cholecalciferol (vitamin D3) 125 125 mcg PO DAILY 11/11/23 06/13/25 History mcg (5,000 unit) capsule lisinopril 20 mg tablet 20 mg PO .PM 11/11/23 06/13/25 History lisinopril 20 1 tablet PO DAILY 11/11/23 06/13/25 History mg-hydrochlorothiazide 25 mg tablet loratadine 10 mg tablet (Allergy 10 mg PO DAILY 11/11/23 06/13/25 History Relief (loratadine)) lorazepam 0.5 mg tablet 0.5 mg PO QHS PRN anxiety 11/11/23 06/13/25 History metoprolol succinate 100 mg 100 mg PO DAILY 11/11/23 06/13/25 History tablet,extended release 24 hr pravastatin 40 mg tablet 40 mg PO HS 11/11/23 06/13/25 History EYE HEALTH FORMULA 1 cap PO BID 01/26/25 06/13/25 History vitamin B comp and C no.3 15 mg-10 1 cap PO DAILY 01/26/25 06/13/25 History mg-50 mg-5 mg-300 mg capsule (B Complex Plus Vitamin C) lorazepam 1 mg tablet (Ativan) 1 mg PO DAILY PRN anxiety #2 tabs 02/09/25 06/13/25 Rx acetaminophen 500 mg tablet 1,000 mg PO Q6H PRN pain 05/25/25 06/13/25 History (Acetaminophen Extra Strength) Patient hx anesthesia problems: none Family hx anesthesia problems: none Results Review: All pre-operative results and documents have been reviewed as part of the pre-operative evaluation. [facility] Past Medical History Medical History Vitamin D deficiency Statin intolerance Psoriasis Prediabetes Paroxysmal atrial fibrillation Obesity (BMI 35.0-39.9 without comorbidity) Chronic kidney disease, stage 3b Essential (primary) hypertension Dyslipidemia Anxiety Surgical History Surgical History History of total hip arthroplasty Family History Family History Other Diabetes mellitus Family history of cardiovascular disease Family history of kidney disease Family history of malignant neoplasm Hypertension Social History Social History Smoking status: Never smoker Alcohol intake: never Do You Feel Safe in your Home?: Yes Lack of Transportation: No Lack of Food: Never True Current Housing: I Have Housing Concerned About Future Housing: No Difficulty Paying Gas/Electric Bills: No Difficulty Paying for Meds: No Currently Unemployed: No Education: High School Diploma/GED Difficulty w/ Childcare or Family Care: No Living arrangements: alone Gender identity (if verbalized by the patient): Female Spiritual care concerns: No Anes - Eval Final PreProcedure Day of Procedure 06/23/25 07:03 Patient weight: obese Lungs: normal air movement Airway: Mallampati scale class II and special considerations (Upper dentures. ) Neurological: alert and oriented Last oral intake: >/= 8 hours ASA classification: III Emergent: no Anesthetic plan: proceed Anesthesia type and monitoring: general ETT and standard monitoring Results Review: All pre-operative results and documents have been reviewed as part of the pre-operative evaluation. HTN, Hyperlipidemia, BMI 39-40. EKG reviewed. Pt w claustrophobia and worried about mask for GA pre/post induction. Discussed w pt and her daughter. Informed Consent: The patient's anesthetic plan and its attendant risks and benefits were discussed with the patient/family/POA. Questions were solicited and answers provided to the satisfaction of the patient/family/POA.
--- NOTE | 2025-06-23 07:28 | WPDHPUPDATE1 ---
History and Physical Update Update Date/Time: 06/23/25 07:28 History and Physical has been reviewed, including an updated exam of the patient. There are NO changes in the patient's condition. Risks, benefits, and alternatives have been discussed and questions answered. Patient agrees to proceed with procedure.
[2025-06-23] MEDS: ceFAZolin 2 GM in SODIUM CHLORIDE 0.9% IV 50 ML 100 ML IVPB ×3 (07:33→23:27)
[2025-06-23] MEDS: SODIUM CHLORIDE 0.9% IV 37.7 ML, MORPHINE SULFATE INJ (*CRX) 2 MG, ROPivacaine HCL 1% 2... INFILTRATE (08:41)
[2025-06-23] MEDS: VANCOMYCIN HCL 1,000 MG VIAL 1000 MG TOPICAL (08:58)
[2025-06-23] MEDS: TRANEXAMIC ACID 1,000 MG/10 ML AMPUL 1000 MG IV PUSH (09:45)
[2025-06-23] MEDS: fentaNYL CITRATE INJ (*CRX) 100 MCG/2 ML VIAL 25 MCG IV PUSH ×2 (10:53→11:12)
--- NOTE | 2025-06-23 12:20 | ADMGEN ---
This patient, Radha Hoffman, was admitted to [facility] Surg Room 316-02. Patient/family oriented to hospital policies and general routines including ID bracelet, bed and alarms, visiting hours, pain management, procedures, bathroom and other care routines, personal items, smoking policy, room service/diet, and visiting hours. Information on how to activate the Rapid Response Team has been discussed. Patient/Family are encouraged to report perceived risks to care and to ask questions if they do not understand what they are told or what they should do.
--- NOTE | 2025-06-23 12:41 | PM.IMCN ---
Assessment and Plan Assessment and plan (1) DJD of right shoulder: Qualifiers: Osteoarthritis type: primary Qualified Code(s): M19.011 - Primary osteoarthritis, right shoulder Code(s): M19.011 - Primary osteoarthritis, right shoulder Status: Acute Assessment and Plan: Underwent a right reverse total shoulder arthroplasty on 06/23. - ambulate with assistance and up to chair - use IS - neurovasc checks - see order for intervals - SCDs/TEDs - analgesics and antiemetics p.r.n. - monitor labs in AM - CBC and BMP - bowel regimen: docusate/senna, polyethylene glycol - maintenance fluids: NS 125 mL/hr x8 hours - PT/OT (2) Paroxysmal atrial fibrillation: Code(s): I48.0 - Paroxysmal atrial fibrillation Status: Chronic Assessment and Plan: - continue metoprolol ER 100 mg daily (3) Chronic kidney disease, stage 3b: Code(s): N18.32 - Chronic kidney disease, stage 3b Status: Chronic Assessment and Plan: - creatinine 1.2, BUN 31, GFR on 06/17 - baseline creatinine: 1.2-1.3 - trend renal function - trend electrolytes, correct as needed (4) Essential (primary) hypertension: Code(s): I10 - Essential (primary) hypertension Status: Chronic Assessment and Plan: - chronic, currently 133/72 - continue home medications: Metoprolol ER, lisinopril-hydrochlorothiazide - monitor (5) Dyslipidemia: Code(s): E78.5 - Hyperlipidemia, unspecified Status: Chronic Assessment and Plan: - continue pravastatin 40 mg daily Plan Diet: Regular GI Prophylaxis: Famotidine p.o. DVT Prophylaxis: SCDs, JAMES IV fluids: NS 125 mL/hour x8 hours Lines/Tubes: Peripheral IV Code Status: Full code HPI Date of Consult Consult date: 06/23/25 Requesting Physician: Ottoniel De Santiago MD Primary Care Provider: Sandra Pressley Consult Narrative Reason for consult: Medical Management Narrative: Radha Hoffman is a 85 year old female with PMH of psoriasis, prediabetes, pAFib, CKD, dyslipidemia, and hypertension presents here for a reverse total shoulder arthroplasty. The patient presents here on 06/23 for reverse total shoulder arthroplasty of the right shoulder. She reports chronic arthritis to both shoulders, however the right shoulder is more severe than the left. She reports the pain has been worsening over time and is now severely limiting her daily activities, such as reaching overhead, receiving items from cabinets, coming here, personal hygiene. Prior to surgery she reported the pain was primarily between the elbow and the shoulder with intermittent radiation into her back. Pain additionally disrupting sleep. Postoperatively she reports mild dizziness with movement, no nausea or vomiting. She states her shoulder feels overall well. Preop VS: 97.3? F, HR 61, RR 18, 143/71, and 97% on RA. Preop workup: No leukocytosis, no anemia, no significant electrolyte derangements, creatinine 1.2 and GFR 43 (at baseline). Review of Systems Review of Systems: All systems reviewed & are unremarkable except as noted in HPI and below PMFSH Past Medical History Medical History (Updated 06/23/25 @ 12:51 by Leidy Ford APRN) History of claustrophobia Macular degeneration of both eyes Diverticulitis Colon cancer Vitamin D deficiency Statin intolerance Psoriasis Prediabetes Paroxysmal atrial fibrillation Obesity (BMI 35.0-39.9 without comorbidity) Chronic kidney disease, stage 3b Essential (primary) hypertension Dyslipidemia Anxiety Surgical History Surgical History History of hysterectomy History of cataract extraction with lens replacement History of cholecystectomy History of colon resection History of total hip arthroplasty Family History Family History Other Diabetes mellitus Family history of cardiovascular disease Family history of kidney disease Family history of malignant neoplasm Hypertension Social History Social History Smoking status: Never smoker Second hand tobacco smoke exposure: No Alcohol intake: never Substance use: never Do You Feel Safe in your Home?: Yes Lack of Transportation: No Lack of Food: Never True Current Housing: I Have Housing Concerned About Future Housing: No Difficulty Paying Gas/Electric Bills: No Difficulty Paying for Meds: No Currently Unemployed: No Education: High School Diploma/GED Difficulty w/ Childcare or Family Care: No Living arrangements: alone Gender identity (if verbalized by the patient): Female Spiritual care concerns: No Meds Home Medications and Allergies Home Medications ?Medication ?Instructions ?Recorded ?Confirmed ?Type aspirin 81 mg tablet,delayed 81 mg PO DAILY 11/11/23 06/23/25 History release cholecalciferol (vitamin D3) 125 125 mcg PO DAILY 11/11/23 06/23/25 History mcg (5,000 unit) capsule lisinopril 20 mg tablet 20 mg PO .PM 11/11/23 06/13/25 History lisinopril 20 1 tablet PO DAILY 11/11/23 06/23/25 History mg-hydrochlorothiazide 25 mg tablet loratadine 10 mg tablet (Allergy 10 mg PO DAILY 11/11/23 06/23/25 History Relief (loratadine)) lorazepam 0.5 mg tablet 0.5 mg PO QHS PRN anxiety 11/11/23 06/23/25 History metoprolol succinate 100 mg 100 mg PO DAILY 11/11/23 06/23/25 History tablet,extended release 24 hr pravastatin 40 mg tablet 40 mg PO HS 11/11/23 06/23/25 History EYE HEALTH FORMULA 1 cap PO BID 01/26/25 06/23/25 History vitamin B comp and C no.3 15 mg-10 1 cap PO DAILY 01/26/25 06/23/25 History mg-50 mg-5 mg-300 mg capsule (B Complex Plus Vitamin C) lorazepam 1 mg tablet (Ativan) 1 mg PO DAILY PRN anxiety #2 tabs 02/09/25 06/23/25 Rx acetaminophen 500 mg tablet 1,000 mg PO Q6H PRN pain 05/25/25 06/23/25 History (Acetaminophen Extra Strength) aspirin 81 mg tablet,delayed 81 mg PO BID 14 days #28 tabs 06/23/25 Rx release oxycodone-acetaminophen 5 mg-325 1 tablet PO Q4H PRN pain 7 days 06/23/25 Rx mg tablet #30 tabs prednisone 5 mg tablet 5 mg PO DAILY 3 weeks #21 tabs 06/23/25 Rx Allergies Allergy/AdvReac Type Severity Reaction Status Date / Time prochlorperazine Allergy Mild Other Verified 06/23/25 07:23 sulfanilamide Allergy Unknown Vomiting Verified 06/23/25 07:23 Sulfa (Sulfonamide AdvReac Severe N/V Verified 06/23/25 07:23 Antibiotics) Vital Signs Vital Signs - 24 hr 06/23/25 07:36 06/23/25 10:16 06/23/25 10:30 Temperature 97.7 F 97.1 F L Pulse Rate 70 80 83 Respiratory Rate 16 14 14 Blood Pressure 142/86 H 104/41 L 119/64 Pulse Oximetry 98 99 99 Oxygen Delivery Room Air Simple Face Mask Simple Face Mask Oxygen Flow Rate 8 8 06/23/25 10:45 06/23/25 11:00 06/23/25 11:15 Temperature Pulse Rate 80 67 63 Respiratory Rate 16 12 12 Blood Pressure 133/66 121/58 L 115/63 Pulse Oximetry 96 98 100 Oxygen Delivery Room Air Nasal Cannula Nasal Cannula Oxygen Flow Rate 2 2 06/23/25 11:30 06/23/25 12:00 06/23/25 12:15 Temperature 97.2 F L 97.3 F L Pulse Rate 66 64 68 Respiratory Rate 14 16 16 Blood Pressure 108/60 126/67 122/68 Pulse Oximetry 100 98 97 Oxygen Delivery Nasal Cannula Oxygen Flow Rate 2 Exam Const: General: comfortable and no acute distress Other: , female, elderly, nontoxic appearance HENMT: Face/Nose/Sinus: Normal nares present Mouth: Yes moist mucous membranes Eyes: General: appearance normal, both eyes and all related structures Sclera: sclerae normal Pupils: Equal, round and reactive pupils present EOM: EOMs intact bilaterally Resp: Effort & Inspection: normal respiratory effort Auscultation: clear to auscultation bilaterally Cardio: Rate: regular rate Rhythm: regular rhythm Other: S1-S2 present without murmur, rub, ectopy GI: Other: Abdomen soft, nondistended, nontender. Normoactive bowel sounds in all quadrants. Skin: General skin exam: normal color and no rashes or lesions noted Other: Postoperative incision to right shoulder, no overt edema or crepitus. Dressing is CDI. Neuro: Speech: normal speech Motor exam (neuro): 5/5 motor strength present throughout Sensory Exam: normal sensation Other: A&O x4 Extrem: Other: Trace edema to bilateral lower extremities, symmetric and nonpitting Psych: Mental Status: mental status grossly normal Affect: normal affect Other: Good insight and judgment, very pleasant Quality VTE Prophylaxis VTE prophylaxis: mechanical ordered Hospitalist MIPS Advance Care Plan I have confirmed that the patient's Advanced Care Plan is present, code status is documented, or surrogate decision maker is listed in patient medical record.: Yes Medication Reconciliation I have utilized all available resources to obtain, update and review the patients current medications (includes all prescriptions, OTC, herbals, cannabis, and nutritional supplements).: Yes
[2025-06-23] MEDS: ACETAMINOPHEN 325 MG TABLET 650 MG PO ×3 (13:22→23:26)
[2025-06-23] MEDS: oxyCODONE/ACETAMINOPHEN (*CRX) 10-325 MG TABLET 1 TAB PO (14:34)
--- NOTE | 2025-06-23 14:39 | W.PM.PROC2 ---
Procedure Note - Detailed Date of Procedure 06/23/25 Pre-op Diagnosis Primary OA right shoulder Post-op Diagnosis Same Procedure Performed Reverse total shoulder arthroplasty, right Surgeon Ottoniel De Santiago MD Wet Plant Operator Eden Todd PA-C Anesthesia General Findings Severe medial and posterior glenoid wear. Description of Procedure Preoperative antibiotics were given. The patient was transferred to the operating room and a general anesthetic was administered. The beach chair position was used at 45 degrees. All bony prominences were padded. The head was carefully stabilized on the [facility] wet process head miller. A sterile prep and drape was performed in the usual manner with ChloraPrep. A longitudinal incision was created at the anterior shoulder just lateral to the deltopectoral interval. The interval was poorly developed. Careful dissection was performed to expose the interval and protect the cephalic vein. The vein was retracted medially. Anterior circumflex vessel branches were suture ligated. The biceps was released. A subscapularis tenotomy was performed. The inferior capsule was released, exposing the humeral head. Osteophytes were removed. Care was taken to stay on bone to protect the axillary nerve. The neck anteversion and inclination were carefully assessed. Version was between 20? and 30?. The anatomic head cut was taken with the oscillating saw. The cut protector was placed, and attention was turned to the glenoid. Retractors were placed. Releases were carried out for exposure. The subscapularis was mobilized, the inferior capsule and long head of triceps released, and the superior and middle glenohumeral ligaments released as well. Labral tissue was resected as needed. Version and inclination were corrected according to preoperative templating. The sizing template was used to assess the baseplate position low on the glenoid, with an approximate 15 degrees corrections of retroversion and 10 degrees of inclination. A guide pin was placed. Minimal reaming was used to accomplish a flat surface without violating the subchondral bone. The boss was drilled, and the real component was impacted into position. The central compression screw was placed. Supplemental locking screws were placed superiorly, and inferiorly. The glenosphere was impacted into the taper. Attention was turned to the humerus. The guide pin was placed, central drilling performed, and the broach trial inserted. The proximal humerus was reamed for the inset component. The humeral components were trialed. The real humeral stem, tray, and insert were impacted into position. The shoulder was copiously irrigated periodically with pulsatile lavage. The shoulder was reduced and stability confirmed. 1 gram of Vancomycin powder was placed in the joint. The pectoralis upper border tendon was repaired. The remaining tissue was closed with 2-0 Vicryl, 3-0 Stratafix and 4-0 Stratafix, and steri-strips. A sterile silver occlusive dressing and shoulder immobilizer were placed. The patient was transferred to the recovery room. Physician optometry assistant, Eden Todd PA-C, required for surgery; including patient positioning, draping, tissue retraction, maintaining instrument position, wound closure, and dressing and sling placement. Implants Shoulder [employer] reverse TSA size 0 stem. +0 polyethylene insert. 15 augmented baseplate. 33 + 3 mm glenosphere. Estimated Blood Loss 200 Drains No Pathology None sent Complications No immediate complications Condition Stable Disposition PACU [facility] Billing Surgery - Charge Forward: Surgery Billing
[2025-06-23] MEDS: LORazepam (*CRX) 0.5 MG TABLET PO (17:24)
[2025-06-23] MEDS: SENNA/DOCUSATE SODIUM TABLET 2 TAB PO (17:24)
[2025-06-23] MEDS: FAMOTIDINE 20 MG TABLET PO (20:18)
[2025-06-23] MEDS: ASPIRIN 81 MG ENTERIC TABLET PO (20:18)
[2025-06-23] MEDS: PRAVASTATIN SODIUM 20 MG TABLET 40 MG PO (20:18)
[2025-06-24 01:23] VITALS: BP 119/59; PULSE 51; RESP 14; TEMP 36.3; O2SAT 95
[2025-06-24] MEDS: oxyCODONE/ACETAMINOPHEN (*CRX) 5-325 MG TABLET 1 TABLET PO (04:18)
[2025-06-24 05:23] VITALS: BP 134/61; PULSE 58; RESP 14; TEMP 36.9; O2SAT 94
[2025-06-24] MEDS: ceFAZolin 2 GM in SODIUM CHLORIDE 0.9% IV 50 ML 100 ML IVPB (06:31)
[2025-06-24] MEDS: ACETAMINOPHEN 325 MG TABLET 650 MG PO (06:32)
[2025-06-24 06:59] LABS: Hematocrit 35.5 % (37.0-47.0); Hemoglobin 11.0 g/dL (12.0-15.0); Immature Granulocyte Percent A 0.6 % (0-0.5); Immature Platelet Fraction Pct 4.4 % (0.9-11.2); Lymphocytes Absolute Auto 0.89 K/mm3 (0.9-3.2); Mean Corpuscular HGB Conc 31.0 g/dl (32-36); Mean Corpuscular Hemoglobin 29.5 pg (26-34); Mean Corpuscular Volume 95.2 fl (80-100); Nucleated Red Blood Cells Absolute Auto 0.000 K/mm3 (0.0-0.012); Nucleated Red Blood Cells Perc 0.0 % (0.0-0.2); Platelet Count Result 131 k/mm3 (150-375); Red Blood Count 3.73 M/mm3 (4.2-5.4); White Blood Count 10.9 K/mm3 (4.5-10.0)
[2025-06-24 07:17] LABS: Anion Gap 6 mmol/L (4-12); Blood Urea Nitrogen 37 mg/dL (7-17); Calcium 8.4 mg/dL (8.4-10.2); Carbon Dioxide 29 mmol/L (22-30); Chloride 100 mmol/L (98-107); Estimated CRCL calculation 28 ml/min; Estimated Glomerular Filt Rate 34; Glucose 122 mg/dL (65-110); Potassium 4.6 mmol/L (3.4-5.0); Sodium 135 mmol/L (137-145)
--- NOTE | 2025-06-24 08:14 | PCPTNOTE ---
Attempted to see patient for PT, however patient reported her daughter wanted to see shoulder exercises with PT and won't be at the hospital till 10 a.m. Will see patient after 10 a.m.
[2025-06-24 08:20] VITALS: BP 121/75; PULSE 62; RESP 17; TEMP 35.8; O2SAT 97
[2025-06-24 08:58] VITALS: PULSE 68
[2025-06-24] MEDS: METOPROLOL SUCCINATE EXT REL 100 MG TABCR PO (08:58)
[2025-06-24] MEDS: SENNA/DOCUSATE SODIUM TABLET 2 TAB PO (08:59)
[2025-06-24] MEDS: LORATADINE 10 MG TABLET PO (08:59)
[2025-06-24] MEDS: ASPIRIN 81 MG ENTERIC TABLET PO (08:59)
[2025-06-24] MEDS: FAMOTIDINE 20 MG TABLET PO (08:59)
--- NOTE | 2025-06-25 07:26 | PM.IMPN ---
Progress Note: A&P Assessment and Plan (1) DJD of right shoulder: Qualifiers: Osteoarthritis type: primary Qualified Code(s): M19.011 - Primary osteoarthritis, right shoulder Code(s): M19.011 - Primary osteoarthritis, right shoulder Status: Acute Assessment and Plan: Underwent a right reverse total shoulder arthroplasty on 06/23. - ambulate with assistance and up to chair - use IS - neurovasc checks - see order for intervals - SCDs/TEDs - analgesics and antiemetics p.r.n. - monitor labs in AM - CBC and BMP Continue RUE sling per ORtho - PT/OT (2) Paroxysmal atrial fibrillation: Code(s): I48.0 - Paroxysmal atrial fibrillation Status: Chronic Assessment and Plan: - continue metoprolol ER 100 mg daily (3) Chronic kidney disease, stage 3b: Code(s): N18.32 - Chronic kidney disease, stage 3b Status: Chronic Assessment and Plan: - creatinine 1.2, BUN 31, GFR on 06/17 - baseline creatinine: 1.2-1.3 Cr 1.45 Patient counseled to repeat BMP on 06/27/25 and follow up with Dr Kaiser who is her primary nephrology patient in agreement with this plan (4) Essential (primary) hypertension: Code(s): I10 - Essential (primary) hypertension Status: Chronic Assessment and Plan: - chronic, currently 133/72 - continue home medications: Metoprolol ER, lisinopril-hydrochlorothiazide - monitor (5) Dyslipidemia: Code(s): E78.5 - Hyperlipidemia, unspecified Status: Chronic Assessment and Plan: - continue pravastatin 40 mg daily Plan Patient is stable for sicharge from medical standpoint and thank you for letting us participate in the care of this patient Diet: Regular GI Prophylaxis: Famotidine p.o. DVT Prophylaxis: SCDs, JAMES IV fluids: NS 125 mL/hour x8 hours Lines/Tubes: Peripheral IV Code Status: Full code Subjective Date/time seen: 06/24/25 07:26 Interval history: Comfortable at bedside Right UE in a sling Date of service is 06/24/25 Review of Systems Review of Systems: All systems reviewed & are unremarkable except as noted in HPI and below Exam Const: General: comfortable and no acute distress Other: , female, elderly, nontoxic appearance HENMT: Face/Nose/Sinus: Normal nares present Mouth: Yes moist mucous membranes Eyes: General: appearance normal, both eyes and all related structures Sclera: sclerae normal Pupils: Equal, round and reactive pupils present EOM: EOMs intact bilaterally Resp: Effort & Inspection: normal respiratory effort Auscultation: clear to auscultation bilaterally Cardio: Rate: regular rate Rhythm: regular rhythm Other: S1-S2 present without murmur, rub, ectopy GI: Other: Abdomen soft, nondistended, nontender. Normoactive bowel sounds in all quadrants. Skin: General skin exam: normal color and no rashes or lesions noted Other: Postoperative incision to right shoulder, no overt edema or crepitus. Dressing is CDI. Neuro: Cranial nerves: Yes Equal, round and reactive pupils present Speech: normal speech Motor exam (neuro): 5/5 motor strength present throughout Sensory Exam: normal sensation Other: A&O x4 Extrem: Other: Trace edema to bilateral lower extremities, symmetric and nonpitting Psych: Mental Status: mental status grossly normal Affect: normal affect Other: Good insight and judgment, very pleasant Objective Data Vital Signs Vital Signs: Vital Signs - 24 hr 06/24/25 08:20 06/24/25 08:30 06/24/25 08:58 Temperature 96.4 F L Pulse Rate 62 68 Respiratory Rate 17 Blood Pressure 121/75 Pulse Oximetry 97 Oxygen Delivery Room Air Intake/Output Intake/Output: Intake & Output 06/22/25 06/23/25 06/24/25 06/25/25 23:59 23:59 23:59 23:59 Intake Total 1110 520 Balance 1110 520 Quality VTE Prophylaxis VTE prophylaxis: mechanical ordered
== END 2025-06-24 11:50 | disposition home or self-care (01) ==
LOC: ANHSURGERY 07:11 → ANH3MEDSUR 11:50
PROVIDERS: Physician Assistant Surgical; Visit Provider Orthopaedic Surgery
PROC: (CPT 23472; principal; 2025-06-23 07:30)
DX: M19.011 Primary osteoarthritis, right shoulder (principal); I48.0 Paroxysmal atrial fibrillation; I12.9 Hypertensive chronic kidney disease with stage 1 through stage 4 chronic kidney disease, or unspecified chronic kidney disease; N18.32 Chronic kidney disease, stage 3b; E78.5 Hyperlipidemia, unspecified; R73.03 Prediabetes
CPT/HCPCS: 23472; 36415; 73030; 80048; 85025; 85055; 86850; 86900; 86901; 97110; 97161; 97166; 97530; 97535; J0690; A4565; A9270; C1776; J0166; J0330; J1100; J1596; J1885; J2003; J2270; J2371; J2405; J2704; J2795; J3010; J3373; J7120

== ENCOUNTER 2025-06-30 12:15 | Outpatient (CLI) | payer MEDICARE, SELFPAY ==
[2025-06-30 13:52] LABS: Anion Gap 4 mmol/L (4-12); Blood Urea Nitrogen 33 mg/dL (7-17); Calcium 9.2 mg/dL (8.4-10.2); Carbon Dioxide 32 mmol/L (22-30); Chloride 99 mmol/L (98-107); Estimated Glomerular Filt Rate 46; Glucose 83 mg/dL (65-110); Potassium 4.0 mmol/L (3.4-5.0); Sodium 135 mmol/L (137-145)
== END 2025-06-30 12:16 | disposition home or self-care (01) ==
PROVIDERS: Visit Provider Internal Medicine
DX: N18.32 Chronic kidney disease, stage 3b (principal)
CPT/HCPCS: 36415; 80048